=== PATIENT | female | born 1970 | race Caucasian/White ===

== ENCOUNTER → 2017-05-19 09:00 | Outpatient (CLI) | payer MEDICARE, MEDICAID, SELFPAY ==
[2017-05-19 12:51] LABS: Absolute Lymphocyte Count 2.07 X10^3/ul (0.83-4.51); Absolute Neutrophil Count 3.2 X10^3/uL (2.0-7.7); Basophil# 0.01 X10^3/uL; Basophil% 0.2 % (0-1); Eosinophil# 0.19 X10^3/uL; Eosinophils% 3.2 % (0-5); Hematocrit 35.7 % (37-47); Hemoglobin 11.7 g/dl (12.0-15.0); Lymphocyte # 2.07 X10^3/ul (4.0); Lymphocyte % 34.6 % (19-41); Mean Corp Hgb Conc 32.8 g/gl (32-36); Mean Corpuscular Hgb 28.8 pg (27.0-32.0); Mean Corpuscular Volume 87.9 fL (81-99); Mean Platelet Vol. 10.6 fl (6.2-12.0); Monocyte# 0.46 X10^3/uL; Monocyte% 7.7 % (0-10); Neutrophil # 3.24 X10^3/uL (2.7-7.7); Neutrophil % 54.1 % (47-70); Platelet Count 177 K/mm3 (150-450); RBC Distribution Width CV 13.2 % (11.6-14.6); RBC Distribution Width SD 42.4 fl (35.1-43.9); Red Blood Count 4.06 M/mm3 (4.2-5.4)
[2017-05-19 13:00] LABS: POSITIVE COUNT NO; POSITIVE DIFFERENTIAL NO; POSITIVE MORPHOLOGY NO
[2017-05-19 13:13] LABS: Cholesterol 192 mg/dL (200); Glucose 87 mg/dL (74-106); High Density Lipoprotein 53 mg/dL; Iron 34 ug/dL (50-170); T4 Free Direct 0.91 ng/dL (0.76-1.46); Thyroid Stim Hormone (TSH) 3.97 uIU/mL (0.358-3.74); Triglycerides 96 mg/dL; Very Low Density Lipoprotein 19 mg/dL (5-40)
[2017-05-19 13:17] LABS: Vitamin B12 493 pg/mL (211-911); Vitamin D,25 Hydroxy 38.2 ng/mL (29.95-100.01)
== END ==
PROVIDERS: Visit Provider Family Medicine
DX: D64.9 Anemia, unspecified (principal); E55.9 Vitamin D deficiency, unspecified; F41.9 Anxiety disorder, unspecified; Z13.1 Encounter for screening for diabetes mellitus; Z13.220 Encounter for screening for lipoid disorders
CPT/HCPCS: 36415; 80061; 82306; 82607; 82947; 83540; 84439; 84443; 85025

== ENCOUNTER → 2017-08-06 08:49 | Outpatient (CLI) | payer MEDICARE, MEDICAID, SELFPAY ==
[2017-08-06 11:02] LABS: Absolute Lymphocyte Count 2.07 X10^3/ul (0.83-4.51); Absolute Neutrophil Count 3.2 X10^3/uL (2.0-7.7); Basophil# 0.02 X10^3/uL; Basophil% 0.3 % (0-1); Eosinophil# 0.11 X10^3/uL; Eosinophils% 1.9 % (0-5); Hematocrit 38.7 % (37-47); Hemoglobin 13.3 g/dl (12.0-15.0); Lymphocyte # 2.07 X10^3/ul (4.0); Lymphocyte % 35.3 % (19-41); Mean Corp Hgb Conc 34.4 g/gl (32-36); Mean Corpuscular Hgb 29.6 pg (27.0-32.0); Mean Platelet Vol. 10.9 fl (6.2-12.0); Monocyte# 0.51 X10^3/uL; Monocyte% 8.7 % (0-10); Neutrophil # 3.15 X10^3/uL (2.7-7.7); Neutrophil % 53.6 % (47-70); Platelet Count 186 K/mm3 (150-450); RBC Distribution Width CV 12.5 % (11.6-14.6); RBC Distribution Width SD 38.4 fl (35.1-43.9); White Blood Count 5.9 K/mm3 (4.4-11.0)
[2017-08-06 11:08] LABS: POSITIVE COUNT NO; POSITIVE DIFFERENTIAL NO; POSITIVE MORPHOLOGY NO
[2017-08-06 11:15] LABS: Ferritin 25 ng/mL (8-252); Iron 117 ug/dL (50-170)
== END ==
PROVIDERS: Family Provider Family Medicine; PCP Family Medicine; Visit Provider Family Medicine
DX: D64.9 Anemia, unspecified (principal)
CPT/HCPCS: 36415; 82728; 83540; 85025

== ENCOUNTER → 2019-11-24 15:32 | Outpatient (CLI) | payer MEDICARE, MEDICAID, SELFPAY ==
[2018-11-10 12:07] VITALS: BMI 44.6
[2019-11-24 17:10] LABS: Absolute Neutrophil Count 3.7 X10^3/uL (2.0-7.7); Basophil# 0.02 X10^3/uL; Basophil% 0.4 % (0-1); Eosinophil# 0.09 X10^3/uL; Eosinophils% 1.6 % (0-5); Hematocrit 39.3 % (37-47); Hemoglobin 13.1 g/dL (12.0-15.0); Lymphocyte % 26.4 % (19-41); Mean Corp Hgb Conc 33.3 g/dL (32-36); Mean Corpuscular Hgb 30.2 pg (27.0-32.0); Mean Corpuscular Volume 90.6 fL (81-99); Mean Platelet Vol. 10.4 fl (6.2-12.0); Monocyte# 0.33 X10^3/uL; Monocyte% 5.8 % (0-10); NRBC Flagged by Analyzer 0 % (0-5); Neutrophil # 3.72 X10^3/uL (2.7-7.7); Neutrophil % 65.4 % (47-70); Platelet Count 188 K/mm3 (150-450); RBC Distribution Width CV 12.1 % (11.6-14.6); RBC Distribution Width SD 40.2 fl (35.1-43.9); Red Blood Count 4.34 M/mm3 (4.2-5.4); White Blood Count 5.7 K/mm3 (4.4-11.0)
[2019-11-24 17:28] LABS: Anion Gap 7 (5-15); BUN 9 mg/dL (7-18); BUN/Creat Ratio 12.2 RATIO (10-20); Calcium,Total 8.4 mg/dL (8.5-10.1); Chloride 105 mmol/L (98-107); Creatinine, Serum 0.74 mg/dL (0.55-1.02); EST Glomerular Filtration Rate 89 mL/min (>60); Est Glom Filt Rate - Afr Amer 108 mL/min (>60); Ferritin 43 ng/mL (8-252); Glucose 85 mg/dL (74-106); Iron 86 ug/dL (50-170); Potassium 3.8 mmol/L (3.5-5.1); Sodium Level 139 mmol/L (136-145); T4 Free Direct 0.89 ng/dL (0.76-1.46); Thyroid Stim Hormone (TSH) 1.85 uIU/mL (0.358-3.74)
== END ==
PROVIDERS: PCP Family Medicine; Visit Provider Family Medicine
DX: G47.00 Insomnia, unspecified (principal); F32.9 Major depressive disorder, single episode, unspecified; E55.9 Vitamin D deficiency, unspecified; D64.9 Anemia, unspecified; R53.83 Other fatigue
CPT/HCPCS: 36415; 80048; 82306; 82728; 83540; 84439; 84443; 85025

== ENCOUNTER → 2022-07-08 | Outpatient (CLI) | payer MEDICARE, MEDICAID, SELFPAY ==
[2022-07-08 12:20] LABS: Absolute Neutrophil Count 3.9 X10^3/uL (2.0-7.7); Basophil# 0.03 X10^3/uL; Basophil% 0.5 % (0-1); Eosinophil# 0.13 X10^3/uL; Hematocrit 43.3 % (37-47); Hemoglobin 14.4 g/dL (12.0-15.0); Mean Corp Hgb Conc 33.3 g/dL (32-36); Mean Corpuscular Hgb 29.9 pg (27.0-32.0); Mean Corpuscular Volume 89.8 fL (81-99); Mean Platelet Vol. 10.6 fl (6.2-12.0); Monocyte% 6.2 % (0-10); NRBC Flagged by Analyzer 0 % (0-5); Neutrophil # 3.88 X10^3/uL (2.7-7.7); Platelet Count 220 K/mm3 (150-450); RBC Distribution Width CV 12.6 % (11.6-14.6); Red Blood Count 4.82 M/mm3 (4.2-5.4); White Blood Count 6.5 K/mm3 (4.4-11.0)
[2022-07-08 12:52] LABS: Vitamin D,25 Hydroxy 32.2 ng/mL
[2022-07-08 12:56] LABS: ALB/GLOB Ratio 1.1 RATIO (0.9-2.4); AST(SGOT) 8 U/L (15-37); Alanine Aminotransfer ALT/SGPT 15 U/L (13-56); Albumin, Serum 3.8 g/dL (3.2-5.0); Alkaline Phosphatase 79 U/L (45-117); Anion Gap 7 (5-15); BUN 10 mg/dL (7-18); BUN/Creat Ratio 12.1 RATIO (10-20); Calcium,Total 8.8 mg/dL (8.5-10.1); Chloride 107 mmol/L (98-107); Cholesterol 231 mg/dL (200); Creatinine, Serum 0.82 mg/dL (0.55-1.02); EST Glomerular Filtration Rate 78 mL/min (>60); Est Glom Filt Rate - Afr Amer 94 mL/min (>60); Ferritin 26 ng/mL (8-252); Globulin 3.4 g/dL (2.2-4.2); Glucose 92 mg/dL (74-106); High Density Lipoprotein 43 mg/dL; Iron 48 ug/dL (50-170); Potassium 3.6 mmol/L (3.5-5.1); Protein, Total 7.2 g/dL (6.4-8.2); Sodium Level 140 mmol/L (136-145); Thyroid Stim Hormone (TSH) 3.25 uIU/mL (0.358-3.74); Triglycerides 156 mg/dL; Very Low Density Lipoprotein 31 mg/dL (5-40)
== END | disposition home or self-care (01) ==
LOC: BFHLAB 10:53
PROVIDERS: PCP Nurse Practitioner Family; Referring Provider Nurse Practitioner Family; Visit Provider Nurse Practitioner Family
DX: Z00.00 Encounter for general adult medical examination without abnormal findings (principal); E66.01 Morbid (severe) obesity due to excess calories; E55.9 Vitamin D deficiency, unspecified; D64.9 Anemia, unspecified
CPT/HCPCS: 36415; 80053; 80061; 82306; 82728; 83540; 84439; 84443; 85025

== ENCOUNTER → 2022-07-14 | Outpatient (CLI) | payer MEDICARE, MEDICAID, SELFPAY ==
--- NOTE | 2022-07-14 12:27 | BI_ITS ---
MAMMOGRAPHY - BILATERAL SCREENING REASON FOR EXAM: Female, 51 years old. Routine annual screening examination. PERTINENT HISTORY: Non-contributory. TECHNIQUE: Digital bilateral breast ajith (3D mammographic acquisition) in the CC and MLO projections. 2-D mediolateral oblique (MLO) and craniocaudad (CC) views of both breasts were obtained. CAD: Full Field Digital Mammography with Computer Added Detection was performed. COMPARISON: Comparison is made with prior outside examination dated November 21, 2018 and August 08, 2015. FINDINGS: Breast Composition: There are scattered areas of fibroglandular density. There are no dominant masses or suspicious calcifications. Stable 1 cm well-defined nodule in the inferior medial aspect of the left breast. This was demonstrated to be a small cyst on prior sonogram dated June 16, 2011. No other significant abnormalities are identified. There has been no significant change since the prior study. BI/SCRN MAMM (CAD)W/AJITH BILAT IMPRESSION: Stable bilateral screening mammogram. Yearly follow-up mammogram recommended. (A) ASSESSMENT CATEGORY: BIRADS Category 2: Benign. A letter regarding these results will be sent to the patient by the facility within 30 days. Approximately 10% of breast cancers are not detected by mammography. A normal mammogram should not delay biopsy of a clinically suspicious abnormality. [id number] Electronically Signed: Quentin Santos MD at 13:44 EDT ,
== END | disposition home or self-care (01) ==
LOC: OPBI 12:25
PROVIDERS: PCP Nurse Practitioner Family; Referring Provider Nurse Practitioner Family; Visit Provider Nurse Practitioner Family
DX: Z12.31 Encounter for screening mammogram for malignant neoplasm of breast (principal)
CPT/HCPCS: 77063; 77067

== ENCOUNTER → 2023-07-19 | Outpatient (CLI) | payer OTHER, SELFPAY ==
[2023-07-19 17:52] LABS: Basophil# 0.02 X10^3/uL; Basophil% 0.4 % (0-1); Eosinophils% 2.1 % (0-5); Hematocrit 41.1 % (37-47); Hemoglobin 13.4 g/dL (12.0-15.0); Mean Corp Hgb Conc 32.6 g/dL (32-36); Mean Corpuscular Hgb 29.6 pg (27.0-32.0); Mean Corpuscular Volume 90.7 fL (81-99); Mean Platelet Vol. 11.3 fl (6.2-12.0); Monocyte% 6.2 % (0-10); NRBC Flagged by Analyzer 0 % (0-5); Neutrophil # 2.99 X10^3/uL (2.7-7.7); Neutrophil % 62.1 % (47-70); Platelet Count 197 K/mm3 (150-450); RBC Distribution Width CV 12.8 % (11.6-14.6); RBC Distribution Width SD 41.6 fl (35.1-43.9); Red Blood Count 4.53 M/mm3 (4.2-5.4); White Blood Count 4.8 K/mm3 (4.4-11.0)
[2023-07-19 18:29] LABS: ALB/GLOB Ratio 1.3 RATIO (0.9-2.4); AST(SGOT) 13 U/L (15-37); Alanine Aminotransfer ALT/SGPT 23 U/L (13-56); Albumin, Serum 3.9 g/dL (3.2-5.0); Alkaline Phosphatase 64 U/L (45-117); Anion Gap 8 (5-15); BUN 12 mg/dL (7-18); BUN/Creat Ratio 14.1 RATIO (10-20); Calcium,Total 8.8 mg/dL (8.5-10.1); Chloride 108 mmol/L (98-107); Cholesterol 189 mg/dL (200); Creatinine, Serum 0.85 mg/dL (0.55-1.02); EST Glomerular Filtration Rate 75 mL/min (>60); Est Glom Filt Rate - Afr Amer 90 mL/min (>60); Ferritin 87 ng/mL (8-252); Globulin 3.1 g/dL (2.2-4.2); Glucose 79 mg/dL (74-106); High Density Lipoprotein 46 mg/dL; Iron 65 ug/dL (50-170); Sodium Level 141 mmol/L (136-145); Triglycerides 78 mg/dL; Very Low Density Lipoprotein 16 mg/dL (5-40)
[2023-07-19 18:31] LABS: Hemoglobin A1c 4.5 % (3.8-5.6)
[2023-07-19 21:51] LABS: Vitamin B12 273 pg/mL (211-911); Vitamin D,25 Hydroxy 87.4 ng/mL
== END | disposition home or self-care (01) ==
LOC: BFHLAB 14:02
PROVIDERS: PCP Nurse Practitioner Family; Referring Provider Nurse Practitioner Family; Visit Provider Nurse Practitioner Family
DX: Z00.01 Encounter for general adult medical examination with abnormal findings (principal); I10 Essential (primary) hypertension; E55.9 Vitamin D deficiency, unspecified; D64.9 Anemia, unspecified; E53.8 Deficiency of other specified B group vitamins
CPT/HCPCS: 36415; 80053; 80061; 82306; 82607; 82728; 83036; 83540; 85025

== ENCOUNTER 2023-08-19 10:00 | Outpatient (RCR) | payer OTHER, SELFPAY | END 2023-09-05 23:59 | LOC: NS 10:00 | PROVIDERS: PCP Nurse Practitioner Family; Referring Provider Nurse Practitioner Family; Visit Provider Nurse Practitioner Family | DX: Z71.3 Dietary counseling and surveillance (principal); I10 Essential (primary) hypertension; E66.01 Morbid (severe) obesity due to excess calories; Z68.34 Body mass index [BMI] 34.0-34.9, adult | CPT/HCPCS: 97802 ==

== ENCOUNTER 2023-08-23 07:59 | Day surgery (SDC) | payer OTHER, SELFPAY ==
[2023-08-23] VITALS (7 sets, daily range): BP systolic 120–146; BP diastolic 71–91; PULSE 57–74; RESP 16; TEMP 36.2–36.7; O2SAT 99–100; BMI 34.1
--- NOTE | 2023-08-23 08:22 | PRE.ANES_ITS ---
ASA Classification* ASA Classification ASA Classification: 2 Assessment & Plan Anesthesia* Anesthesia Assessment Anesthesia Assessment: Discussed sedation and/or anesthesia options, risks, benefits, and alternatives with patient/parents/legal guardian/POA. Questions invited. The patient/parents/legal guardian/POA seems to understand and agrees to proceed with anesthesia plan. Reviewed the physical assessment, medical history, allergy history and patient home medications list prior to surgery/procedure/anesthetic and documented any changes. Performed airway and anesthesia risk assessments. 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 When Was Last Pacemaker Check QUESTION #4 FULL TEXT: You/Your Family Experience fever (hyperthermia) with Anesthesia Last Oral Intake Last Oral intake: Last Oral Intake NPO since Meds taken in AM with sips of water? Meds patient instructed to take am of surgery PONV PONV - bench press operator: PONV - bench press operator Female Yes 08/17/23 12:26 HX of Motion Sickness No 08/17/23 12:26 HX of N/V After Surgery No 08/17/23 12:26 Non-Smoker Yes 08/17/23 12:26 Duration of Surgery greater No 08/17/23 12:26 than 60 minutes Number of Risk Factors 2 08/17/23 12:26 PONV Score Moderate Risk 08/17/23 12:26 Height & Weight Height & Weight: Anesthesia: Height & Weight Height 5 ft 5 in 08/19/23 10:09 Respiratory Assessment Respiratory Assessment - bench press operator: Respiratory Tract Infection Hx - bench press operator Hx Respiratory Tract Infection No 08/17/23 12:26 STOP Sleep Apnea STOP Sleep Apnea - bench press operator: STOP Sleep Apnea - bench press operator Hx Hypertension Yes 08/17/23 12:26 Hx Sleep Apnea No 08/17/23 12:26 CPAP BIPAP Do you snore loudly (louder No 08/17/23 12:26 than talking or can be heard Do you often feel tired/ No 08/17/23 12:26 fatigued/ sleepy during daytime? Has anyone observed you stop No 08/17/23 12:26 breathing during sleep? STOP Results Negative 08/17/23 12:26 QUESTION #5 FULL TEXT : Do you snore loudly (louder than talking or can be h eard through closed doors)? 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 Specify any problems Hx of Preganancy in last 3 No 08/17/23 12:26 Months Nurse Filling Out Transfusion [email or web address] 08/17/23 12:26 & Questions: Date: 08/17/23 08/17/23 12:26 Time: 12:27 08/17/23 12:26 Patient unable to answer at this time (ie. confused, unrespo /Reproduction History /Reproductive History - bench press operator: /Reproductive Hx- bench press operator Hx Now Gestational Age (in weeks): EDC: Hx Hx Para Hx Section SAB Active Medications Active Medications: Current Medications Generic Name Dose Route Start Last Admin Trade Name Freq PRN Reason Stop Dose Admin Lactated Ringer's 1,000 mls @ 15 mls/hr 08/23/23 08:30 IV .Q48H [facility] Anesthesia Focused Assessment* Airway Assessment Mouth opens: >3 cm Mallampati Score: II Focused Labs Anesthesia Preop lab: CBC WBC 4.8 K/mm3 (4.4-11.0) 07/19/23 14:02 RBC 4.53 M/mm3 (4.2-5.4) 07/19/23 14:02 Hgb 13.4 g/dL (12.0-15.0) 07/19/23 14:02 Hct 41.1 % (37-47) 07/19/23 14:02 Plt Count 197 K/mm3 (150-450) 07/19/23 14:02 CHEMISTRY Potassium 4.0 mmol/L (3.5-5.1) 07/19/23 14:02 Sodium 141 mmol/L (136-145) 07/19/23 14:02 Magnesium 1.8 mg/dL (1.8-2.4) 10/05/13 11:32 Phosphorus 3.0 mg/dL (2.5-4.9) 10/05/13 11:32 BUN 12 mg/dL (7-18) 07/19/23 14:02 Creatinine 0.85 mg/dL (0.55-1.02) 07/19/23 14:02 Glucose 79 mg/dL (74-106) 07/19/23 14:02 TSH 3.25 uIU/mL (0.358-3.74) 07/08/22 10:54 COAG Review of Systems (Anesthesia) ROS Narrative System reviewed and no additional complaints, except as documented. [facility] Medical History (Updated 08/17/23 @ 12:23 by Archie Ascencio) Depression Anxiety Contact dermatitis due to plant h/o ulnar nerve release Fibromyalgia Anemia Home Medications ?Medication ?Instructions ?Recorded ?Last Taken ?Type cholecalciferol (vitamin D3) 50 2,000 unit PO DAILY 11/10/18 Unknown History mcg (2,000 unit) capsule tizanidine 2 mg capsule (Zanaflex) 2 mg PO Q8H PRN muscle spasticity 11/10/18 Unknown History tramadol 50 mg tablet 50 mg PO DAILY 11/10/18 Unknown History zolpidem 5 mg tablet (Ambien) 10 mg PO QHS 11/10/18 Unknown History rizoayy-dcdcnpocdmoet-guthwyhz 250 1 tab PO PRN 04/03/20 Unknown History mg-250 mg-65 mg tablet (Excedrin Migraine) diclofenac sodium 75 mg 50 mg PO BID PRN pain 04/03/20 Unknown History tablet,delayed release ibuprofen 200 mg capsule 200 mg PO Q6H PRN pain 04/03/20 Unknown History diphenhydramine HCl 25 mg capsule 25 mg PO QHS PRN allergy symptoms 09/22/22 Unknown History (Benadryl) lisinopril 10 mg tablet 10 mg PO QHS 09/22/22 Unknown History bupropion HCl 150 mg 24 hr tablet, 300 mg PO DAILY 08/17/23 Unknown History extended release ferrous sulfate 325 mg (65 mg 325 mg PO DAILY 08/17/23 Unknown History iron) tablet (Feosol) Allergy/AdvReac Type Severity Reaction Status Date / Time No Known Allergies Allergy Verified 08/17/23 12:12 Family History (Updated 04/03/20 @ 11:27 by [facility]) Father Diabetes Surgical History (Updated 04/03/20 @ 11:27 by [facility]) H/O: hysterectomy History of gastric bypass History of hysterectomy History of carpal tunnel repair Hx of tonsillectomy History of Social History (Updated 04/03/20 @ 15:[address] Iban Ricks, DO) household members: spouse and children housing: house Smoking Status: Never smoker alcohol intake: never do you feel safe at home: Yes
[2023-08-23] MEDS: Lactated Ringers 1,000 ML 15 ML IV (08:31)
--- NOTE | 2023-08-23 09:42 | RAD_ITS ---
PROCEDURE: Right cervical facet injection. DATE OF EXAMINATION: August 23, 2023. INDICATION: Female, 52 years old. Cervical neck pain. FLUOROSCOPY TIME (if supplied): (11.1 seconds) minutes/seconds. 1.51 mGy. 4 images were submitted. RAD/Cerv Spine 4 or 5 Views IMPRESSION: Intraoperative imaging provided for right cervical facet joint injection. Electronically Signed: Quentin Santos MD at 8:03 EDT ,
[2023-08-23] MEDS: MethylPREDNISolone Acetate 80 MG/ML Vial (09:48)
--- NOTE | 2023-08-23 09:53 | PCM.POST.ANE ---
Anesthesia: Postop Eval I Current Vital Signs Temperature: 97.8 F Pulse Rate: 74 Blood Pressure: 120/71 Respiratory Rate: 16 Pulse Ox: 99 Oxygen Delivery Method: Room Air Assessment Airway patent: Yes Spontaneous unlabored respirations: Yes Mental status: Awake and Calm nausea: No Vomiting: No Anesthesia Complication: No Fluid Hydration Crystalloid volume administer (ml): 200 Total IV fluid infused: 200 Progress Note Anesthesia document: Postop Eval 1 completed: Yes
--- NOTE | 2023-08-23 10:55 | OP.PCM_ITS ---
Report of Operation Date of Procedure: 08/23/23 Description of Surgical Findings:: PREOPERATIVE DIAGNOSIS: Cervical spondylosis, cervical degenerative disc disease, cervical facet arthropathy POSTOPERATIVE DIAGNOSIS:Cervical spondylosis, cervical degenerative disc disease, cervical facet arthropathy PROCEDURE PERFORMED: Right sided cervical facet steroid injection, C4, C5, C6, and C7. ANESTHESIA: MAC. BLOOD LOSS: Minimal. COMPLICATIONS: None. DESCRIPTION OF PROCEDURE: History and physical of today was reviewed. Risks and benefits of the procedure were explained. The patient understood and agreed to proceed. Informed consent was obtained. IV inserted per routine protocol. The patient was taken to the operating room and placed in the prone position with a pillow positioned underneath the chest. The neck area was prepped and draped in a sterile fashion using iodine x3. Under fluoroscopy guidance on an AP view, the C4 through C7 vertebral bodies were visualized at approximately 10- degree angle, starting on the right C4, ending on the right C7, passing through the C5 and C6. Using a 25-gauge 3-1/2-inch spinal needle, the needle was advanced via the skin. The tip of the needle was maneuvered and directed towards the epiphyseal junction of each corresponding vertebra. Once the tip of the needle was at the vicinity of the medial branch, the needle was pulled approximately 2 mm off the bone. After negative aspiration of blood or CSF and confirmation on AP, oblique as well as lateral view, a total of 4 mL of preservative-free 0.25% Marcaine with 80 mg of Depo-Medrol was injected in divided doses between those four levels. The needles were then removed intact. The patient experienced no sign or symptoms of intrathecal or intravascular injection. The patient experienced no paresthesia. The procedure was completed without any apparent difficulty or any complications. The patient appeared to tolerate it well. ASSESSMENT AND PLAN: This is a 52-year-old female with cervical spondylosis, cervical degenerative disc disease, cervical facet arthropathy status post right-sided cervical facet steroid injection C4-C7, patient will continue her current medications, patient will follow approximately 2 weeks for reevaluation.
--- NOTE | 2023-08-23 12:37 | POSTOPAN2_ITS ---
Anesthesia Postop Eval I Sum Postop Eval Completion status Anesthesia document: Postop Eval 1 completed: Yes Anesthesia Postop Eval I Summary Anesthesia Postop Eval I Summary: Anesthesia Postop Eval I: Assessment Summary Airway patent Yes 08/23/23 09:58 ELECTRIC ARC FURNACE OPERATOR.KYLELOU Spontaneous unlabored Yes 08/23/23 09:58 ELECTRIC ARC FURNACE OPERATOR.PAPITOU respirations Mental status Awake,Calm 08/23/23 09:58 ELECTRIC ARC FURNACE OPERATOR.KYLELOU nausea No 08/23/23 09:58 ELECTRIC ARC FURNACE OPERATOR.KYLELOU Vomiting No 08/23/23 09:58 ELECTRIC ARC FURNACE OPERATOR.KYLELOU Anesthesia Postop Eval I: Fluid Summary Crystalloid volume administer 200 08/23/23 09:58 ELECTRIC ARC FURNACE OPERATOR.KYLELOU (ml) Colloids volume administered ( ml) Blood Product volume administered (ml) Total IV fluid infused 200 08/23/23 09:58 ELECTRIC ARC FURNACE OPERATOR.KYLELOU Anesthesia Postop Eval I: Summary Notes Anesthesia Complication No 08/23/23 09:58 ELECTRIC ARC FURNACE OPERATOR.PRITI Anesthesia Complication Comment: Post-operative progress note Anesthesia: Postop Eval II Evaluation Mental status: Awake Pain Level: 0 nausea: No Vomiting: No Complications Anesthesia Complication: No
--- NOTE | 2023-08-23 12:37 | PCM.POSTANE2 ---
Anesthesia Postop Eval I Sum Postop Eval Completion status Anesthesia document: Postop Eval 1 completed: Yes Anesthesia Postop Eval I Summary Anesthesia Postop Eval I Summary: Anesthesia Postop Eval I: Assessment Summary Airway patent Yes 08/23/23 09:58 SALES OPERATIONS LEAD.KYLELOU Spontaneous unlabored Yes 08/23/23 09:58 SALES OPERATIONS LEAD.PAPITOU respirations Mental status Awake,Calm 08/23/23 09:58 SALES OPERATIONS LEAD.KYLELOU nausea No 08/23/23 09:58 SALES OPERATIONS LEAD.KYLELOU Vomiting No 08/23/23 09:58 SALES OPERATIONS LEAD.KYLELOU Anesthesia Postop Eval I: Fluid Summary Crystalloid volume administer 200 08/23/23 09:58 SALES OPERATIONS LEAD.KYLELOU (ml) Colloids volume administered ( ml) Blood Product volume administered (ml) Total IV fluid infused 200 08/23/23 09:58 SALES OPERATIONS LEAD.KYLELOU Anesthesia Postop Eval I: Summary Notes Anesthesia Complication No 08/23/23 09:58 SALES OPERATIONS LEAD.PRITI Anesthesia Complication Comment: Post-operative progress note Anesthesia: Postop Eval II Evaluation Mental status: Awake Pain Level: 0 nausea: No Vomiting: No Complications Anesthesia Complication: No
== END 2023-08-23 10:37 | disposition home or self-care (01) ==
LOC: SDC 07:59 → AC 08:00
PROVIDERS: PCP Nurse Practitioner Family; Referring Provider Anesthesiology Pain Medicine; Visit Provider Anesthesiology Pain Medicine
PROC: 3E0T3BZ Introduction of Anesthetic Agent into Peripheral Nerves and Plexi, Percutaneous Approach (ICD-10-PCS; CPT 64490; principal; 2023-08-23 09:05)
DX: M47.812 Spondylosis without myelopathy or radiculopathy, cervical region (principal); M50.30 Other cervical disc degeneration, unspecified cervical region; M46.92 Unspecified inflammatory spondylopathy, cervical region; Z79.899 Other long term (current) drug therapy; Z79.82 Long term (current) use of aspirin
CPT/HCPCS: 64490; 64492; 64491; 01992; 72050; J7120

== ENCOUNTER → 2023-08-24 | Outpatient (CLI) | payer OTHER, SELFPAY ==
--- NOTE | 2023-08-24 15:50 | BI_ITS ---
MAMMOGRAPHY - BILATERAL SCREENING REASON FOR EXAM: Female, 52 years old. Routine annual screening examination. PERTINENT HISTORY: Non-contributory. TECHNIQUE: Digital bilateral breast ajith (3D mammographic acquisition) in the CC and MLO projections. 2-D mediolateral oblique (MLO) and craniocaudad (CC) views of both breasts were obtained. CAD: Full Field Digital Mammography with Computer Added Detection was performed. COMPARISON: Comparison is made with prior study July 14, 2022 and August 08, 2015. FINDINGS: Breast Composition: There are scattered areas of fibroglandular density. There are no dominant masses or suspicious calcifications. Stable 1 cm well-defined nodule in the inferior medial aspect of the left breast. This was demonstrated to be a small cyst on prior sonogram. No other significant abnormalities are identified. There has been no significant change since the prior study. BI/SCRN MAMM (CAD)W/AJITH BILAT IMPRESSION: Stable bilateral screening mammogram. Yearly follow-up mammogram recommended. (A) ASSESSMENT CATEGORY: BIRADS Category 2: Benign. A letter regarding these results will be sent to the patient by the facility within 30 days. Approximately 10% of breast cancers are not detected by mammography. A normal mammogram should not delay biopsy of a clinically suspicious abnormality. [id number] Electronically Signed: Quentin Santos MD at 10:52 EDT ,
--- NOTE | 2023-08-24 15:57 | BD_ITS ---
STUDY: DUAL ENERGY X-RAY ABSORPTIOMETRY / DXA REASON FOR EXAM: Female, 52 years old. V76.12ScreeningBONE DENSITY REASON FOR EXAM TECHNIQUE: Bone Mineral Density (BMD) measurements of lumbar spine and bilateral hips were obtained. COMPARISON: Comparison is made with prior study dated August 14, 2008. FINDINGS: Lumbar Spine (L1-L4): g/cm2 (1.010) / T-score (-0.3) / Z-score (0.5) Findings are suggestive of normal bone density with a low fracture risk. Left Femur Total: g/cm2 (1.010) / T-score (0.6) / Z-score (1.1) Left Femoral Neck: g/cm2 (0.764) / T-score (-0.8) / Z-score (0.1) Right Femur Total: g/cm2 (1.038) / T-score (0.8) / Z-score (1.3) Right Femoral Neck: g/cm2 (0.840) / T-score (-0.1) / Z-score (0.8) The T-Scores on the most recent prior examination were: Lumbar Spine (L1-L4): There has been worsening of bone density since the previous examination. Left Femur Total: which represents a worsening of 5.2%. Right Femur Total: which represents a worsening of 0.7%. BD/Dexa Bone Density Study IMPRESSION: The patient is considered normal as outlined below according to World Trip Organization (WHO) criteria with a low fracture risk. There has been worsening of bone density since the previous examination. Reference Information: The T-score is the number of standard deviations above or below the standard which is normal for young adults at their peak bone mineral density. The World Health Organization (WHO) interprets the T-scores as follows: Above -1 Normal bone density Between -1 and -2.5 Osteopenia Equal to / or below -2.5 Osteoporosis As a practical clinical guideline, osteopenia may be graded as follows: Mild -1 through -1.5 Moderate -1.6 through -2.0 Severe -2.1 through -2.4 The Z-score is the number of standard deviations above or below age-matched controls. A Z-score of less than -1.5 would be considered abnormal. References: 1. NIH Osteoporosis and Related Bone Diseases www osteo.org 2. International Society for Clinical Densitometry www iscd.org 3. National Osteoporosis Foundation www nof.org Electronically Signed: Quentin Santos MD at 14:19 EDT ,
== END | disposition home or self-care (01) ==
LOC: OPBD 15:48
PROVIDERS: PCP Nurse Practitioner Family; Referring Provider Nurse Practitioner Family; Visit Provider Nurse Practitioner Family
DX: Z12.31 Encounter for screening mammogram for malignant neoplasm of breast (principal); Z13.820 Encounter for screening for osteoporosis
CPT/HCPCS: 77063; 77067; 77080

== ENCOUNTER 2023-09-14 13:31 | Outpatient (RCR) | payer OTHER, SELFPAY | END 2023-10-06 23:59 | LOC: NS 13:31 | PROVIDERS: PCP Nurse Practitioner Family; Referring Provider Nurse Practitioner Family; Visit Provider Nurse Practitioner Family | DX: Z71.3 Dietary counseling and surveillance (principal); I10 Essential (primary) hypertension; E66.01 Morbid (severe) obesity due to excess calories; Z68.33 Body mass index [BMI] 33.0-33.9, adult | CPT/HCPCS: 97803 ==

== ENCOUNTER 2024-02-21 07:42 | Day surgery (SDC) | payer OTHER, SELFPAY ==
[2024-02-21] VITALS (7 sets, daily range): BP systolic 120–139; BP diastolic 69–103; PULSE 59–73; RESP 16–18; TEMP 36.3–36.8; O2SAT 100; BMI 33.7
--- NOTE | 2024-02-21 08:20 | RAD_ITS ---
EXAM: XR CERVICAL SPINE, 4 OR 5 VIEWS CLINICAL INDICATION: BLOCK, CERVICAL FACET, LEFT TECHNIQUE: Frontal, lateral and bilateral oblique views of the cervical spine. COMPARISON: No relevant prior studies available. FINDINGS: VERTEBRAE: Image obtained intraoperatively. Images show markedly along the left cervical spine for facet block. DISC SPACES: Unremarkable. Disc spaces are maintained. SOFT TISSUES: See above. LUNG APICES: Clear. RAD/Cerv Spine 2 or 3 Views IMPRESSION: Intraoperative localization for cervical facet block. Electronically Signed: Juan C Sellers MD at 0:01 EST ,
--- NOTE | 2024-02-21 09:46 | PRE.ANES_ITS ---
ASA Classification* ASA Classification ASA Classification: 2 Assessment & Plan Anesthesia* Anesthesia Assessment Anesthesia Assessment: Discussed sedation and/or anesthesia options, risks, benefits, and alternatives with patient/parents/legal guardian/POA. Questions invited. The patient/parents/legal guardian/POA seems to understand and agrees to proceed with anesthesia plan. Reviewed the physical assessment, medical history, allergy history and patient home medications list prior to surgery/procedure/anesthetic and documented any changes. Performed airway and anesthesia risk assessments. Anesthesia Type Anesthesia Type: MAC Anesthesia Focused Assessment* Temperature: 98.2 F Pulse Rate: 73 Blood Pressure: 139/83 Respiratory Rate: 18 Pulse Ox: 100 Airway Assessment Mouth opens: >3 cm Mallampati Score: II Focused Labs Anesthesia Preop lab: CBC WBC 4.8 K/mm3 (4.4-11.0) 07/19/23 14:02 RBC 4.53 M/mm3 (4.2-5.4) 07/19/23 14:02 Hgb 13.4 g/dL (12.0-15.0) 07/19/23 14:02 Hct 41.1 % (37-47) 07/19/23 14:02 Plt Count 197 K/mm3 (150-450) 07/19/23 14:02 CHEMISTRY Potassium 4.0 mmol/L (3.5-5.1) 07/19/23 14:02 Sodium 141 mmol/L (136-145) 07/19/23 14:02 Magnesium 1.8 mg/dL (1.8-2.4) 10/05/13 11:32 Phosphorus 3.0 mg/dL (2.5-4.9) 10/05/13 11:32 BUN 12 mg/dL (7-18) 07/19/23 14:02 Creatinine 0.85 mg/dL (0.55-1.02) 07/19/23 14:02 Glucose 79 mg/dL (74-106) 07/19/23 14:02 TSH 3.25 uIU/mL (0.358-3.74) 07/08/22 10:54 COAG Pre-Assessment Diagnosis/Proposed Procedure Planned Operative Procedure(s): Cervical facet block Anesthesia History 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 When Was Last Pacemaker Check QUESTION #4 FULL TEXT: You/Your Family Experience fever (hyperthermia) with Anesthesia Last Oral Intake Last Oral intake: Last Oral Intake NPO since 12:15 02/21/24 08:09 Meds taken in AM with sips of water? Meds patient instructed to take am of surgery PONV PONV - field superintendent: PONV - field superintendent Female HX of Motion Sickness HX of N/V After Surgery Non-Smoker Duration of Surgery greater than 60 minutes Number of Risk Factors PONV Score Height & Weight Height & Weight: Anesthesia: Height & Weight Height 5 ft 5 in 02/21/24 08:09 Weight: 92 kg 02/21/24 08:09 Body Mass Index (BMI) 33.7 02/21/24 08:09 Respiratory Assessment Respiratory Assessment - field superintendent: Respiratory Tract Infection Hx - field superintendent Hx Respiratory Tract Infection No 08/17/23 12:26 STOP Sleep Apnea STOP Sleep Apnea - field superintendent: STOP Sleep Apnea - field superintendent Hx Hypertension Yes 08/17/23 12:26 Hx Sleep Apnea No 08/23/23 10:10 CPAP BIPAP Do you snore loudly (louder than talking or can be heard Do you often feel tired/ fatigued/ sleepy during daytime? Has anyone observed you stop breathing during sleep? STOP Results QUESTION #5 FULL TEXT : Do you snore loudly (louder than talking or can be heard through closed doors)? 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 Specify any problems Hx of Preganancy in last 3 Months Nurse Filling Out Transfusion & Questions: Date: Time: Patient unable to answer at this time (ie. confused, unrespo /Reproduction History /Reproductive History - field superintendent: /Reproductive Hx- field superintendent Hx Now Gestational Age (in weeks): EDC: Hx Hx Para Hx Section SAB [employer] [facility] Medical History HTN (hypertension) Depression Anxiety Contact dermatitis due to plant h/o ulnar nerve release Fibromyalgia Anemia Home Medications ?Medication ?Instructions ?Recorded ?Last Taken ?Type cholecalciferol (vitamin D3) 50 2,000 unit PO DAILY 11/10/18 02/20/24 History mcg (2,000 unit) capsule tizanidine 2 mg capsule (Zanaflex) 2 mg PO Q8H PRN muscle spasticity 11/10/18 02/20/24 History tramadol 50 mg tablet 50 mg PO DAILY 11/10/18 02/20/24 History zolpidem 5 mg tablet (Ambien) 10 mg PO QHS 11/10/18 02/20/24 History xqxbcrv-ewroxdyomkpnm-yecivmwy 250 1 tab PO PRN 04/03/20 08/22/23 History mg-250 mg-65 mg tablet (Excedrin Migraine) ibuprofen 200 mg capsule 200 mg PO Q6H PRN pain 04/03/20 08/22/23 History diphenhydramine HCl 25 mg capsule 25 mg PO QHS PRN allergy symptoms 09/22/22 08/22/23 History (Benadryl) lisinopril 10 mg tablet 10 mg PO QHS 09/22/22 02/20/24 History bupropion HCl 150 mg 24 hr tablet, 300 mg PO DAILY 08/17/23 02/20/24 History extended release ferrous sulfate 325 mg (65 mg 325 mg PO DAILY 08/17/23 02/20/24 History iron) tablet (Feosol) omega 5-hai-chh-fish oil 1,200 mg 1 cap PO DAILY 02/21/24 02/20/24 History (144 mg-216 mg) capsule (Fish Oil) Allergy/AdvReac Type Severity Reaction Status Date / Time No Known Allergies Allergy Verified 02/21/24 08:05 Family History Father Diabetes Grandmother Colon cancer Paternal, In her 60's Surgical History H/O: hysterectomy History of gastric bypass History of hysterectomy History of carpal tunnel repair Hx of tonsillectomy History of Social History household members: spouse and children housing: house current occupational status: employed Smoking Status: Never smoker alcohol intake: never do you feel safe at home: Yes Review of Systems (Anesthesia) ROS Narrative System reviewed and no additional complaints, except as documented.
[2024-02-21] MEDS: MethylPREDNISolone Acetate 80 MG/ML Vial (11:24)
[2024-02-21] MEDS: Bupivacaine 0.25% 30 ML Vial (11:25)
--- NOTE | 2024-02-21 11:28 | PCM.OPRPT ---
Operative Report (Standard) Operative Information Date of Procedure: 02/21/24 Pre-Operative Diagnosis: 1 Post-Operative Diagnosis: 1 Surgery/Procedure Performed: 1 mattress stripper: No Type of Anesthesia: MAC and Topical Anesth RN Documented Start/Stop Times: Operation Date: 02/21/24 09:20 Case Time Into Pre-Op 02/21/24 07:55 Into Room 02/21/24 11:11 Anesthesia Start 02/21/24 11:12 Procedure Start 02/21/24 11:24 Procedure End 02/21/24 11:25 Procedure Start Time: Procedure Stop Time: Select all DRAINS/GRAFTS/IMPLANTS that apply: None Estimated Blood Loss: 1 Specimen collected: No Description of surgery: PREOPERATIVE DIAGNOSIS: Cervical spondylosis, cervical degenerative disc disease, cervical facet arthropathy POSTOPERATIVE DIAGNOSIS:Cervical spondylosis, cervical degenerative disc disease, cervical facet arthropathy PROCEDURE PERFORMED: left sided cervical facet steroid injection, C4, C5, C6, and C7. ANESTHESIA: MAC. BLOOD LOSS: Minimal. COMPLICATIONS: None. DESCRIPTION OF PROCEDURE: History and physical of today was reviewed. Risks and benefits of the procedure were explained. The patient understood and agreed to proceed. Informed consent was obtained. IV inserted per routine protocol. The patient was taken to the operating room and placed in the prone position with a pillow positioned underneath the chest. The neck area was prepped and draped in a sterile fashion using iodine x3. Under fluoroscopy guidance on an AP view, the C4 through C7 vertebral bodies were visualized at approximately 10-degree angle, starting on the left C4, ending on the left C7, passing through the C5 and C6. Using a 25-gauge 3-1/2-inch spinal needle, the needle was advanced via the skin. The tip of the needle was maneuvered and directed towards the epiphyseal junction of each corresponding vertebra. Once the tip of the needle was at the vicinity of the medial branch, the needle was pulled approximately 2 mm off the bone. After negative aspiration of blood or CSF and confirmation on AP, oblique as well as lateral view, a total of 4 mL of preservative-free 0.25% Marcaine with 80 mg of Depo-Medrol was injected in divided doses between those four levels. The needles were then removed intact. The patient experienced no sign or symptoms of intrathecal or intravascular injection. The patient experienced no paresthesia. The procedure was completed without any apparent difficulty or any complications. The patient appeared to tolerate it well. ASSESSMENT AND PLAN: This is a 53-year-old female with cervical spondylosis, cervical degenerative disc disease, cervical facet arthropathy status post left-sided cervical facet steroid injection C4-C7, patient will continue her current medications, patient will follow approximately 2 weeks for reevaluation. Surgical Findings: 1 Complications Complications: No Admit VTE Documentation VTE Present on Admission: No VTE Pharm Prophylaxis ordered?: No
--- NOTE | 2024-02-21 11:37 | PCM.POST.ANE ---
Anesthesia: Postop Eval I Current Vital Signs Temperature: 97.4 F Pulse Rate: 59 Blood Pressure: 120/103 Respiratory Rate: 16 Pulse Ox: 100 Oxygen Delivery Method: Room Air Assessment Airway patent: Yes Spontaneous unlabored respirations: Yes Mental status: Awake and Calm nausea: No Vomiting: No Anesthesia Complication: No Fluid Hydration Crystalloid volume administer (ml): 4 Total IV fluid infused: 4 Progress Note Anesthesia document: Postop Eval 1 completed: Yes
--- NOTE | 2024-02-21 13:26 | PCM.POSTANE2 ---
Anesthesia Postop Eval I Sum Postop Eval Completion status Anesthesia document: Postop Eval 1 completed: Yes Anesthesia Postop Eval I Summary Anesthesia Postop Eval I Summary: Anesthesia Postop Eval I: Assessment Summary Airway patent Yes 02/21/24 11:38 Spontaneous unlabored Yes 02/21/24 11:38 respirations Mental status Awake,Calm 02/21/24 11:38 nausea No 02/21/24 11:38 Vomiting No 02/21/24 11:38 Anesthesia Postop Eval I: Fluid Summary Crystalloid volume administer 4 02/21/24 11:38 (ml) Colloids volume administered ( ml) Blood Product volume administered (ml) Total IV fluid infused 4 02/21/24 11:38 Anesthesia Postop Eval I: Summary Notes Anesthesia Complication No 02/21/24 11:38 Anesthesia Complication Comment: Post-operative progress note Anesthesia: Postop Eval II Evaluation Mental status: Awake Pain Level: 0 nausea: No Vomiting: No
== END 2024-02-21 12:10 | disposition home or self-care (01) ==
LOC: SDC 07:42 → AC 07:43
PROVIDERS: PCP Nurse Practitioner Family; Referring Provider Anesthesiology Pain Medicine; Visit Provider Anesthesiology Pain Medicine
PROC: 3E0U3BZ Introduction of Anesthetic Agent into Joints, Percutaneous Approach (ICD-10-PCS; CPT 64490; principal; 2024-02-21 09:15)
DX: M47.812 Spondylosis without myelopathy or radiculopathy, cervical region (principal); M50.30 Other cervical disc degeneration, unspecified cervical region; M46.92 Unspecified inflammatory spondylopathy, cervical region; I10 Essential (primary) hypertension; Z79.899 Other long term (current) drug therapy
CPT/HCPCS: 64492; 64491; 01992; 64490; 72040; A4216; J2405

== ENCOUNTER 2024-05-10 07:47 | Day surgery (SDC) | payer OTHER, SELFPAY ==
[2024-05-10] VITALS (8 sets, daily range): BP systolic 110–160; BP diastolic 62–98; PULSE 68–85; RESP 12–18; TEMP 36.2–36.6; O2SAT 98–100; BMI 34.8
--- NOTE | 2024-05-10 08:11 | PCM.PRE.AN2 ---
ASA Classification* ASA Classification ASA Classification: 2 Assessment & Plan Anesthesia* Anesthesia Assessment Anesthesia Assessment: Discussed sedation and/or anesthesia options, risks, benefits, and alternatives with patient/parents/legal guardian/POA. Questions invited. The patient/parents/legal guardian/POA seems to understand and agrees to proceed with anesthesia plan. Reviewed the physical assessment, medical history, allergy history and patient home medications list prior to surgery/procedure/anesthetic and documented any changes. Performed airway and anesthesia risk assessments. Anesthesia Type Anesthesia Type: MAC Anesthesia Focused Assessment* Temperature: 98 F Pulse Rate: 78 Blood Pressure: 160/98 Respiratory Rate: 16 Pulse Ox: 100 Airway Assessment Mouth opens: >3 cm Mallampati Score: II Focused Labs Anesthesia Preop lab: CBC WBC 4.8 K/mm3 (4.4-11.0) 07/19/23 14:02 07/19/23 RBC 4.53 M/mm3 (4.2-5.4) 07/19/23 14:02 07/19/23 Hgb 13.4 g/dL (12.0-15.0) 07/19/23 14:02 07/19/23 Hct 41.1 % (37-47) 07/19/23 14:02 07/19/23 Plt Count 197 K/mm3 (150-450) 07/19/23 14:02 07/19/23 CHEMISTRY Potassium 4.0 mmol/L (3.5-5.1) 07/19/23 14:02 07/19/23 Sodium 141 mmol/L (136-145) 07/19/23 14:02 07/19/23 Magnesium 1.8 mg/dL (1.8-2.4) 10/05/13 11:32 10/05/13 Phosphorus 3.0 mg/dL (2.5-4.9) 10/05/13 11:32 10/05/13 BUN 12 mg/dL (7-18) 07/19/23 14:02 07/19/23 Creatinine 0.85 mg/dL (0.55-1.02) 07/19/23 14:02 07/19/23 Glucose 79 mg/dL (74-106) 07/19/23 14:02 07/19/23 TSH 3.25 uIU/mL (0.358-3.74) 07/08/22 10:54 07/08/22 COAG Pre-Assessment Diagnosis/Proposed Procedure Planned Operative Procedure(s): cscope Anesthesia History 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 When Was Last Pacemaker Check QUESTION #4 FULL TEXT: You/Your Family Experience fever (hyperthermia) with Anesthesia Last Oral Intake Last Oral intake: Last Oral Intake NPO since 02:00 05/10/24 08:04 Meds taken in AM with sips of No 05/10/24 08:04 water? Meds patient instructed to take am of surgery PONV PONV - station operator: PONV - station operator Female Yes 05/09/24 14:07 HX of Motion Sickness Yes 05/09/24 14:07 HX of N/V After Surgery No 05/09/24 14:07 Non-Smoker Yes 05/09/24 14:07 Duration of Surgery greater No 05/09/24 14:07 than 60 minutes Number of Risk Factors 3 05/09/24 14:07 PONV Score Moderate Risk 05/09/24 14:07 Height & Weight Height & Weight: Anesthesia: Height & Weight Height 5 ft 4 in 05/10/24 08:04 Weight: 92 kg 05/10/24 08:04 Body Mass Index (BMI) 34.8 05/10/24 08:04 Respiratory Assessment Respiratory Assessment - station operator: Respiratory Tract Infection Hx - station operator Hx Respiratory Tract Infection No 05/09/24 14:07 STOP Sleep Apnea STOP Sleep Apnea - station operator: STOP Sleep Apnea - station operator Hx Hypertension No 05/09/24 14:07 Hx Sleep Apnea No 05/09/24 14:07 CPAP BIPAP Do you snore loudly (louder No 05/09/24 14:07 than talking or can be heard Do you often feel tired/ No 05/09/24 14:07 fatigued/ sleepy during daytime? Has anyone observed you stop No 05/09/24 14:07 breathing during sleep? STOP Results Negative 05/09/24 14:07 QUESTION #5 FULL TEXT : Do you snore loudly (louder than talking or can be heard through closed doors)? 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 Specify any problems Hx of Preganancy in last 3 N/A 05/09/24 14:07 Months Nurse Filling Out Transfusion NBUCHER 05/09/24 14:07 & Questions: Date: 05/09/24 05/09/24 14:07 Time: 14:08 05/09/24 14:07 Patient unable to answer at this time (ie. confused, unrespo /Reproduction History /Reproductive History - station operator: /Reproductive Hx- station operator Hx Now No 05/09/24 14:07 Gestational Age (in weeks): EDC: Hx Hx Para Hx Section SAB No 05/09/24 14:07 PFSH Medical History Wears glasses Arthritis Low iron Migraine headache GERD (gastroesophageal reflux disease) Non-smoker HTN (hypertension) Depression Anxiety Contact dermatitis due to plant h/o ulnar nerve release Fibromyalgia Anemia Home Medications ?Medication ?Instructions ?Recorded ?Last Taken ?Type zolpidem 5 mg tablet (Ambien) 10 mg PO QHS 11/10/18 02/20/24 History njahvnk-ecgxtzylefecq-mfghpstp 250 1 tab PO PRN 04/03/20 05/03/24 History mg-250 mg-65 mg tablet (Excedrin Migraine) ibuprofen 200 mg capsule 200 mg PO Q6H PRN pain 04/03/20 08/22/23 History diphenhydramine HCl 25 mg capsule 25 mg PO QHS PRN allergy symptoms 09/22/22 08/22/23 History (Benadryl) lisinopril 10 mg tablet 10 mg PO QHS 09/22/22 02/20/24 History ferrous sulfate 325 mg (65 mg 325 mg PO DAILY 08/17/23 05/03/24 History iron) tablet (Feosol) acyclovir 400 mg tablet 400 mg PO TID PRN cold sore 02/21/24 Unknown History bupropion HCl 150 mg 24 hr tablet, 450 mg PO QHS 02/21/24 Unknown History extended release cholecalciferol (vitamin D3) 50 5,000 unit PO DAILY 02/21/24 Unknown History mcg (2,000 unit) capsule omega 2-npr-wbg-fish oil 1,200 mg 1 cap PO DAILY 02/21/24 05/03/24 History (144 mg-216 mg) capsule (Fish Oil) omeprazole 20 mg capsule,delayed 20 mg PO QHS PRN gerd 02/21/24 Unknown History release sumatriptan succinate 6 mg/0.5 mL 6 mg subcut Q1-4H PRN migraine 02/21/24 Unknown History subcutaneous cartridge (refill) headache tizanidine 2 mg capsule (Zanaflex) 4 mg PO Q8H PRN muscle spasticity 02/21/24 Unknown History tramadol 50 mg tablet 50 mg PO Q8H PRN pain 02/21/24 Unknown History Allergy/AdvReac Type Severity Reaction Status Date / Time No Known Allergies Allergy Verified 05/10/24 08:02 Family History Father Diabetes Grandmother Colon cancer Paternal, In her 60's Surgical History H/O: hysterectomy History of gastric bypass History of hysterectomy History of carpal tunnel repair Hx of tonsillectomy History of Social History household members: spouse and children housing: house current occupation: [employer] Smoking Status: Never smoker alcohol intake: never substance use type: does not use do you feel safe at home: Yes Review of Systems (Anesthesia) ROS Narrative System reviewed and no additional complaints, except as documented.
--- NOTE | 2024-05-10 08:30 | PCM.HP.STD ---
HPI - General General Date of Admission: 05/10/24 Date of Service: 05/10/24 Chief Complaint: Screening colon HPI Narrative TINY MCCONNELL, is a 53 F who presents today for her first colonoscopy. She is having a colonoscopy in the past. She has a past medical history of mild hypertension, GERD and mild depression. All of those are controlled with medications. [facility] Medical History Wears glasses Arthritis Low iron Migraine headache GERD (gastroesophageal reflux disease) Non-smoker HTN (hypertension) Depression Anxiety Contact dermatitis due to plant h/o ulnar nerve release Fibromyalgia Anemia Home Medications ?Medication ?Instructions ?Recorded ?Last Taken ?Type zolpidem 5 mg tablet (Ambien) 10 mg PO QHS 11/10/18 02/20/24 History vmnotcc-nbwbtwjzjjjhb-fvijpmsp 250 1 tab PO PRN 04/03/20 05/03/24 History mg-250 mg-65 mg tablet (Excedrin Migraine) ibuprofen 200 mg capsule 200 mg PO Q6H PRN pain 04/03/20 08/22/23 History diphenhydramine HCl 25 mg capsule 25 mg PO QHS PRN allergy symptoms 09/22/22 08/22/23 History (Benadryl) lisinopril 10 mg tablet 10 mg PO QHS 09/22/22 02/20/24 History ferrous sulfate 325 mg (65 mg 325 mg PO DAILY 08/17/23 05/03/24 History iron) tablet (Feosol) acyclovir 400 mg tablet 400 mg PO TID PRN cold sore 02/21/24 Unknown History bupropion HCl 150 mg 24 hr tablet, 450 mg PO QHS 02/21/24 Unknown History extended release cholecalciferol (vitamin D3) 50 5,000 unit PO DAILY 02/21/24 Unknown History mcg (2,000 unit) capsule omega 3-alp-zvv-fish oil 1,200 mg 1 cap PO DAILY 02/21/24 05/03/24 History (144 mg-216 mg) capsule (Fish Oil) omeprazole 20 mg capsule,delayed 20 mg PO QHS PRN gerd 02/21/24 Unknown History release sumatriptan succinate 6 mg/0.5 mL 6 mg subcut Q1-4H PRN migraine 02/21/24 Unknown History subcutaneous cartridge (refill) headache tizanidine 2 mg capsule (Zanaflex) 4 mg PO Q8H PRN muscle spasticity 02/21/24 Unknown History tramadol 50 mg tablet 50 mg PO Q8H PRN pain 02/21/24 Unknown History Allergy/AdvReac Type Severity Reaction Status Date / Time No Known Allergies Allergy Verified 05/10/24 08:02 Family History Father Diabetes Grandmother Colon cancer Paternal, In her 60's Surgical History H/O: hysterectomy History of gastric bypass History of hysterectomy History of carpal tunnel repair Hx of tonsillectomy History of Social History household members: spouse and children housing: house current occupation: [employer] Smoking Status: Never smoker alcohol intake: never substance use type: does not use do you feel safe at home: Yes ROS Constitutional Constitutional: Denies fatigue, fever(s), poor appetite, weight gain or weight loss Gastrointestinal Gastrointestinal: Denies belching, bloating, change in bowel habits, change in stool character, chewing difficulty, coffee ground emesis, constipation, cramping, diarrhea, dyspepsia, dysphagia, early satiety, excessive flatus, fecal incontinence, heartburn, hematemesis, hematochezia, hemorrhoids, loose stools, melena, nausea, odynophagia, rectal bleeding, tenesmus, vomiting or weight changes Vital Signs Vital Signs Vital Signs: 05/10/24 08:04 05/10/24 08:04 05/10/24 08:11 Temperature 98 F 98 F Temperature Source Temporal Pulse Rate 78 78 Respiratory Rate 16 16 Respiratory Pattern Irregular Blood Pressure 160/98 H 160/98 H Blood Pressure Mean 118 Blood Pressure Source Monitor Blood Pressure Position Semi-Fowlers Blood Pressure Location Right Arm Pulse Ox 100 100 Oxygen Delivery Method Room Air Weight Weight: 202 lb 13.204 oz Body Mass Index (BMI) 34.8 Physical Exam Const alert, oriented x3, no apparent distress and healthy appearing General Appearance: cooperative GI normal to inspection, nondistended, normoactive bowel sounds, soft to palpation, non-tender and non-distended Percussion: normal to percussion Rectal Exam: deferred Assessment & Plan Assessment/Plan (1) Encounter for screening for malignant neoplasm of colon: PLAN: She was explained alternatives, benefits, risk including not withstanding bleeding, infection, sepsis, perforation, need for emergent urgent . She will have an ASA of 3.
--- NOTE | 2024-05-10 09:11 | PCM.POST.ANE ---
Anesthesia: Postop Eval I Current Vital Signs Temperature: 97.2 F Pulse Rate: 76 Blood Pressure: 112/62 Respiratory Rate: 16 Pulse Ox: 99 Oxygen Delivery Method: Room Air Assessment Airway patent: Yes Spontaneous unlabored respirations: Yes Mental status: Awake and Calm nausea: No Vomiting: No Anesthesia Complication: No Fluid Hydration Crystalloid volume administer (ml): 50 Total IV fluid infused: 50 Progress Note Anesthesia document: Postop Eval 1 completed: Yes
--- NOTE | 2024-05-10 09:13 | OP.CCLET_ITS ---
05/10/2024 Barry Dobson Re : Colonoscopy procedure for Anabel Salazar Dear Stas This procedure was performed on Friday, May 10, 2024. My impressions and recommendations are as follows: Impressions : - Diverticulosis in the recto-sigmoid colon. - Stool in the recto-sigmoid colon, in the sigmoid colon, in the ascending colon and in the cecum. - The examination was otherwise normal on direct and retroflexion views. - No specimens collected. Recommendations : - Discharge patient to home. - Resume previous diet. - Continue present medications. - Repeat colonoscopy in 10 years for screening purposes. My findings are described in the full procedure note, which is enclosed. If I can be of further assistance, please feel free to contact me at . Sincerely, Tico Hernandez, 05/10/2024 9:12:34 AM This report has been signed electronically.
--- NOTE | 2024-05-10 09:13 | OP.COLON_ITS ---
Patient Name: Anabel Salazar Procedure Date: 05/10/2024 8:37 AM Date of : 1970 Age: 53 Procedure: Colonoscopy Indications: Screening for colorectal malignant neoplasm Providers: Tico Hernandez DO Referring MD: Barry Dobson Medicines: Monitored Anesthesia Care Patient Profile: This is a 53 year old female. Refer to note in patient chart for documentation of history and physical. Last Colonoscopy: none. The patient's first colonoscopy is today. Complications: No immediate complications. Procedure: Pre-Anesthesia Assessment: - Prior to the procedure, a History and Physical was performed, and patient medications and allergies were reviewed. The patient is competent. The risks and benefits of the procedure and the sedation options and risks were discussed with the patient. All questions were answered and informed consent was obtained. Patient identification and proposed procedure were verified by the physician in the pre-procedure area. Mental Status Examination: alert and oriented. Airway Examination: normal oropharyngeal airway and neck mobility. Respiratory Examination: clear to auscultation. CV Examination: normal. Prophylactic Antibiotics: The patient does not require prophylactic antibiotics. Prior Anticoagulants: The patient has taken no anticoagulant or antiplatelet agents. ASA Grade Assessment: II - A patient with mild systemic disease. After reviewing the risks and benefits, the patient was deemed in satisfactory condition to undergo the procedure. The anesthesia plan was to use monitored anesthesia care (MAC). Immediately prior to administration of medications, the patient was re-assessed for adequacy to receive sedatives. The heart rate, respiratory rate, oxygen saturations, blood pressure, adequacy of pulmonary ventilation, and response to care were monitored throughout the procedure. The physical status of the patient was re-assessed after the procedure. After I obtained informed consent, the scope was passed under direct vision. Throughout the procedure, the patient's blood pressure, pulse, and oxygen saturations were monitored continuously. The Colonoscope was introduced through the anus and advanced to the cecum, identified by the appendiceal orifice, IC valve and transillumination. The colonoscopy was performed without difficulty. The patient tolerated the procedure well. The quality of the bowel preparation was adequate. The ileocecal valve, appendiceal orifice, and rectum were photographed. Scope In: 8:47:18 AM Scope Withdrawal Time 0 hours 9 minutes 35 seconds Scope Out: 9:02:22 AM Total Procedure Duration Time 0 hours 15 minutes 4 seconds Findings: The perianal and digital rectal examinations were normal. A few small-mouthed diverticula were found in the recto-sigmoid colon. A moderate amount of stool was found in the recto-sigmoid colon, in the sigmoid colon, in the ascending colon and in the cecum, interfering with visualization. Lavage of the area was performed using a moderate amount of sterile water, resulting in clearance with good visualization. The exam was otherwise without abnormality on direct and retroflexion views. Impression: - Diverticulosis in the recto-sigmoid colon. - Stool in the recto-sigmoid colon, in the sigmoid colon, in the ascending colon and in the cecum. - The examination was otherwise normal on direct and retroflexion views. - No specimens collected. Recommendation: - Discharge patient to home. - Resume previous diet. - Continue present medications. - Repeat colonoscopy in 10 years for screening purposes. Procedure Code(s): --- Professional --- G0121, Colorectal cancer screening; colonoscopy on individual not meeting criteria for high risk CPT copyright 2021 [employer]. All rights reserved. The codes documented in this report are preliminary and upon typesetter apprentice review may be revised to meet current compliance requirements. Tcio Hernandez DO 05/10/2024 9:12:34 AM This report has been signed electronically. Number of Addenda: 0 Note Initiated On: 05/10/2024 8:37 AM
--- NOTE | 2024-05-10 09:18 | PCM.POSTANE2 ---
Anesthesia Postop Eval I Sum Postop Eval Completion status Anesthesia document: Postop Eval 1 completed: Yes Anesthesia Postop Eval I Summary Anesthesia Postop Eval I Summary: Anesthesia Postop Eval I: Assessment Summary Airway patent Yes 05/10/24 09:12 [email or web address] Spontaneous unlabored Yes 05/10/24 09:12 [email or web address] respirations Mental status Awake,Calm 05/10/24 09:12 [email or web address] nausea No 05/10/24 09:12 [email or web address] Vomiting No 05/10/24 09:12 [email or web address] Anesthesia Postop Eval I: Fluid Summary Crystalloid volume administer 50 05/10/24 09:12 [email or web address] (ml) Colloids volume administered ( ml) Blood Product volume administered (ml) Total IV fluid infused 50 05/10/24 09:12 [email or web address] Anesthesia Postop Eval I: Summary Notes Anesthesia Complication No 05/10/24 09:12 [email or web address] Anesthesia Complication Comment: Post-operative progress note Anesthesia: Postop Eval II Evaluation Mental status: Awake Pain Level: 0 nausea: No Vomiting: No
== END 2024-05-10 09:38 | disposition home or self-care (01) ==
LOC: EN 07:47 → AC 07:49
PROVIDERS: PCP Nurse Practitioner Family; Referring Provider Nurse Practitioner Family; Visit Provider Internal Medicine Gastroenterology
PROC: 0DJD8ZZ Inspection of Lower Intestinal Tract, Via Natural or Artificial Opening Endoscopic (ICD-10-PCS; CPT 45378; principal; 2024-05-10 08:40)
DX: Z12.11 Encounter for screening for malignant neoplasm of colon (principal); Z80.0 Family history of malignant neoplasm of digestive organs; Z79.82 Long term (current) use of aspirin; I10 Essential (primary) hypertension; K57.90 Diverticulosis of intestine, part unspecified, without perforation or abscess without bleeding; K21.9 Gastro-esophageal reflux disease without esophagitis; F32.A Depression, unspecified; Z79.899 Other long term (current) drug therapy; Z90.710 Acquired absence of both cervix and uterus
CPT/HCPCS: 45378; A4216; J2405

== ENCOUNTER 2024-05-22 08:31 | Day surgery (SDC) | payer OTHER, SELFPAY ==
[2024-05-22] VITALS (7 sets, daily range): BP systolic 118–135; BP diastolic 73–84; PULSE 63–69; RESP 16–18; TEMP 36.4–37.1; O2SAT 98–100; BMI 36.0
--- NOTE | 2024-05-22 10:07 | PRE.ANES_ITS ---
ASA Classification* ASA Classification ASA Classification: 2 Assessment & Plan Anesthesia* Anesthesia Assessment Anesthesia Assessment: Discussed sedation and/or anesthesia options, risks, benefits, and alternatives with patient/parents/legal guardian/POA. Questions invited. The patient/parents/legal guardian/POA seems to understand and agrees to proceed with anesthesia plan. Reviewed the physical assessment, medical history, allergy history and patient home medications list prior to surgery/procedure/anesthetic and documented any changes. Performed airway and anesthesia risk assessments. Anesthesia Type Anesthesia Type: MAC Anesthesia Focused Assessment* Temperature: 98.7 F Pulse Rate: 64 Blood Pressure: 135/84 Respiratory Rate: 17 Pulse Ox: 100 Oxygen Delivery Method: Room Air Airway Assessment Mouth opens: >3 cm Mallampati Score: II Teeth Condition: Intact Neck Range of motion (ROM): Full ROM Focused Labs Anesthesia Preop lab: CBC WBC 4.8 K/mm3 (4.4-11.0) 07/19/23 14:07/19/23 RBC 4.53 M/mm3 (4.2-5.4) 07/19/23 14:02 07/19/23 Hgb 13.4 g/dL (12.0-15.0) 07/19/23 14:07/19/23 Hct 41.1 % (37-47) 07/19/23 14:02 07/19/23 Plt Count 197 K/mm3 (150-450) 07/19/23 14:02 07/19/23 CHEMISTRY Potassium 4.0 mmol/L (3.5-5.1) 07/19/23 14:02 07/19/23 Sodium 141 mmol/L (136-145) 07/19/23 14:02 07/19/23 Magnesium 1.8 mg/dL (1.8-2.4) 10/05/13 11:32 10/05/13 Phosphorus 3.0 mg/dL (2.5-4.9) 10/05/13 11:32 10/05/13 BUN 12 mg/dL (7-18) 07/19/23 14:02 07/19/23 Creatinine 0.85 mg/dL (0.55-1.02) 07/19/23 14:02 07/19/23 Glucose 79 mg/dL (74-106) 07/19/23 14:02 07/19/23 TSH 3.25 uIU/mL (0.358-3.74) 07/08/22 10:54 COAG Pre-Assessment Diagnosis/Proposed Procedure Planned Operative Procedure(s): RIGHT sided cervical facet steroid injection C4,5,6,7 under flouroscopy Anesthesia History Anesthesia History - senior laboratory technician: Anesthesia History - senior laboratory technician Hx Hospitalization No 05/09/24 14:07 Any Problems With Anesthesia No 05/09/24 14:07 Cholinesterase deficiency No 05/09/24 14:07 You/Your Family Experience No 05/09/24 14:07 fever (hyperthermia) with Relationship Recent Exposure to Contagious No 05/22/24 09:07 Disease Does patient have nerve No 05/09/24 14:07 stimulator Patient instructed to have device shut off --Does patient have Pacemaker No 05/22/24 09:07 or ICD? When Was Last Pacemaker Check QUESTION #4 FULL TEXT: You/Your Family Experience fever (hyperthermia) with Anesthesia Last Oral Intake Last Oral intake: Last Oral Intake NPO since 00:00 05/22/24 09:07 Meds taken in AM with sips of No 05/22/24 09:07 water? Meds patient instructed to take am of surgery PONV PONV - senior laboratory technician: PONV - senior laboratory technician Female HX of Motion Sickness HX of N/V After Surgery Non-Smoker Duration of Surgery greater than 60 minutes Number of Risk Factors PONV Score Height & Weight Height & Weight: Anesthesia: Height & Weight Height 5 ft 4 in 05/22/24 09:07 Weight: 95.2 kg 05/22/24 09:07 Body Mass Index (BMI) 36.0 05/22/24 09:07 Respiratory Assessment Respiratory Assessment - senior laboratory technician: Respiratory Tract Infection Hx - senior laboratory technician Hx Respiratory Tract Infection No 05/09/24 14:07 STOP Sleep Apnea STOP Sleep Apnea - senior laboratory technician: STOP Sleep Apnea - senior laboratory technician Hx Hypertension No 05/09/24 14:07 Hx Sleep Apnea No 05/10/24 09:20 CPAP BIPAP Do you snore loudly (louder than talking or can be heard Do you often feel tired/ fatigued/ sleepy during daytime? Has anyone observed you stop breathing during sleep? STOP Results QUESTION #5 FULL TEXT : Do you snore loudly (louder than talking or can be heard through closed doors)? Tobacco Use History Tobacco Use History - senior laboratory technician: Tobacco Use History - senior laboratory technician Tobacco Use Smoking Status Never smoker 05/09/24 14:07 Hx Tobacco Use No 05/09/24 14:07 Years Smoking Packs Smoked per Day Smoking Cessation Date was within the last 15 years Hx Smoking Cessation Date Hx Smoking Cessation Counseling Hematologic Medial History Hematologic Hx - senior laboratory technician: Hematologic Medical Hx - documentation engineer Hx of Blood Transfusion Hx of Transfusion in last 3 Months Date of Last Transfusion (if within last 3 months) Ever experience any problems with transfusion(s)? Specify any problems Hx of Preganancy in last 3 Months Nurse Filling Out Transfusion & Questions: Date: Time: Patient unable to answer at this time (ie. confused, unrespo /Reproduction History /Reproductive History - senior laboratory technician: /Reproductive Hx- senior laboratory technician Hx Now Gestational Age (in weeks): EDC: Hx Hx Para Hx Section SAB No 05/09/24 14:07 [facility] Medical History Wears glasses Arthritis Low iron Migraine headache GERD (gastroesophageal reflux disease) Non-smoker HTN (hypertension) Depression Anxiety Contact dermatitis due to plant h/o ulnar nerve release Fibromyalgia Anemia Home Medications ?Medication ?Instructions ?Recorded ?Last Taken ?Type zolpidem 5 mg tablet (Ambien) 10 mg PO QHS 11/10/18 History lhnqpld-euaapjodcvetl-pngewskc 250 1 tab PO PRN 05/03/24 History mg-250 mg-65 mg tablet (Excedrin Migraine) ibuprofen 200 mg capsule 400 mg PO Q6H PRN pain 04/0305/22/24 History diphenhydramine HCl 25 mg capsule 25 mg PO QHS PRN all ergy symptoms 09/22/22 0 08/22/23 History (Benadryl) lisinopril 10 mg tablet 10 mg PO QHS 09/22/22 History ferrous sulfate 325 mg (65 mg 325 mg PO DAILY 08/17/23 05/21/24 History iron) tablet (Feosol) acyclovir 400 mg tablet 400 mg PO TID PRN cold sore 02/21/24 Unknown History bupropion HCl 150 mg 24 hr tablet, 450 mg PO QHS 02/2005/21/24 History extended release cholecalciferol (vitamin D3) 50 5,000 unit PO DAILY 05/21/24 History mcg (2,000 unit) capsule omega 9-fib-jgi-fish oil 1,200 mg 1 cap PO DAILY 02/2005/21/24 History (144 mg-216 mg) capsule (Fish Oil) omeprazole 20 mg capsule,delayed 20 mg PO QHS PRN gerd 02/21/24 Unknown History release sumatriptan succinate 6 mg/0.5 mL 6 mg subcut Q1-4H RI N migraine 02/21/24 Unkn own History subcutaneous cartridge (refill) headache tizanidine 2 mg capsule (Zanaflex) 4 mg PO Q8H PRN [place] spasticity 02/21/24 Unknown History tramadol 50 mg tablet 50 mg PO Q8H PRN pain Unknown History Allergy/AdvReac Type Severity Reaction Status Date / Time No Known Allergies Allergy Verified 05/22/24 09:04 Family History Father Diabetes Grandmother Colon cancer Paternal, In her 60's Surgical History H/O: hysterectomy History of gastric bypass History of hysterectomy History of carpal tunnel repair Hx of tonsillectomy History of Social History household members: spouse and children housing: house current occupation: [employer] Smoking Status: Never smoker alcohol intake: never substance use type: does not use do you feel safe at home: Yes Review of Systems (Anesthesia) ROS Narrative System reviewed and no additional complaints, except as documented.
--- NOTE | 2024-05-22 10:10 | RAD_ITS ---
PROCEDURE: Fluoroscopy use. 05/22/2024 REASON FOR EXAM: BLOCK, CERVICAL FACET RT TECHNIQUE: 4 intraoperative spot images were obtained during right cervical facet block. 9.7 seconds of fluoroscopic time utilized. COMPARISON: None. FINDINGS: 4 intraoperative spot images were obtained during right cervical facet nerve block. A needle projects over several levels of what is presumably the right side of the cervical spine. No laterality marker on the provided images. RAD/Fluor Guidance for Spine Inj IMPRESSION: Documentation of fluoroscopy use during right cervical facet block. Please see the procedure note for details. Reading Location: [facility]
[2024-05-22] MEDS: MethylPREDNISolone Acetate 80 MG/ML Vial (10:17)
[2024-05-22] MEDS: Bupivacaine 0.25% 30 ML Vial (10:18)
--- NOTE | 2024-05-22 10:22 | PCM.OPRPT ---
Operative Report (Standard) Operative Information Date of Procedure: 05/22/24 Pre-Operative Diagnosis: Cervical spondylosis, cervical facet arthropathy, cervical degenerative disc disease Post-Operative Diagnosis: Cervical spondylosis, cervical degenerative disc disease, cervical facet arthropathy Surgery/Procedure Performed: Right-sided cervical facet steroid injection C4-5, C5-6, C6-7 trouble shooting mechanic: No Type of Anesthesia: Local MAC RN Documented Start/Stop Times: Operation Date: 05/22/24 10:00 Case Time Into Pre-Op 05/22/24 09:07 Anesthesia Start 05/22/24 10:11 Into Room 05/22/24 10:11 Out of Pre-Op 05/22/24 10:11 Procedure Start 05/22/24 10:16 Procedure End 05/22/24 10:18 Procedure Start Time: 10:22 Procedure Stop Time: : Select all DRAINS/GRAFTS/IMPLANTS that apply: None Estimated Blood Loss: 0 Specimen collected: No Description of surgery: ANESTHESIA: MAC. BLOOD LOSS: Minimal. COMPLICATIONS: None. DESCRIPTION OF PROCEDURE: History and physical of today was reviewed. Risks and benefits of the procedure were explained. The patient understood and agreed to proceed. Informed consent was obtained. IV inserted per routine protocol. The patient was taken to the operating room and placed in the prone position with a pillow positioned underneath the chest. The neck area was prepped and draped in a sterile fashion using iodine x3. Under fluoroscopy guidance on an AP view, the C4 through C7 vertebral bodies were visualized at approximately 10-degree angle, starting on the right C4, ending on the right C7, passing through the C5 and C6. Using a 25-gauge 3-1/2-inch spinal needle, the needle was advanced via the skin. The tip of the needle was maneuvered and directed towards the epiphyseal junction of each corresponding vertebra. Once the tip of the needle was at the vicinity of the medial branch, the needle was pulled approximately 2 mm off the bone. After negative aspiration of blood or CSF and confirmation on AP, oblique as well as lateral view, a total of 4 mL of preservative-free 0.25% Marcaine with 80 mg of Depo-Medrol was injected in divided doses between those four levels. The needles were then removed intact. The patient experienced no sign or symptoms of intrathecal or intravascular injection. The patient experienced no paresthesia. The procedure was completed without any apparent difficulty or any complications. The patient appeared to tolerate it well. ASSESSMENT AND PLAN: This is a 53-year-old female with cervical spondylosis, cervical degenerative disc disease, cervical facet arthropathy, status post right-sided cervical facet steroid injection C4-C7, patient will continue her current medications, patient will follow-up in approximately 1 to 2 weeks for reevaluation. Surgical Findings: 0 Complications Complications: No Admit VTE Documentation VTE Present on Admission: No VTE Mechan Device Prophylaxis: None VTE Pharm Prophylaxis ordered?: No
--- NOTE | 2024-05-22 10:29 | PCM.POST.ANE ---
Anesthesia: Postop Eval I Current Vital Signs Temperature: 97.6 F Pulse Rate: 68 Blood Pressure: 118/79 Respiratory Rate: 18 Pulse Ox: 99 Oxygen Delivery Method: Room Air Assessment Airway patent: Yes Spontaneous unlabored respirations: Yes Mental status: Awake nausea: No Vomiting: No Anesthesia Complication: No Fluid Hydration Crystalloid volume administer (ml): 10 Total IV fluid infused: 10 Progress Note Anesthesia document: Postop Eval 1 completed: Yes
--- NOTE | 2024-05-22 10:36 | POSTOPAN2_ITS ---
Anesthesia Postop Eval I Sum Postop Eval Completion status Anesthesia document: Postop Eval 1 completed: Yes Anesthesia Postop Eval I Summary Anesthesia Postop Eval I Summary: Anesthesia Postop Eval I: Assessment Summary Airway patent Yes 05/22/24 10:30 [email or web address] Spontaneous unlabored Yes 05/22/24 10:30 [email or web address] [email or web address] respirations Mental status Awake 05/22/24 10:30 [email or web address] nausea No 05/22/24 10:30 [email or web address] [email or web address] Vomiting No 05/22/24 10:30 [email or web address] Anesthesia Postop Eval I: Fluid Summary Crystalloid volume administer 10 05/22/24 10:30 [email or web address] (ml) Colloids volume administered ( ml) Blood Product volume administered (ml) Total IV fluid infused 10 05/22/24 10:30 [email or web address] Anesthesia Postop Eval I: Summary Notes Anesthesia Complication No 05/22/24 10:30 [email or web address] Anesthesia Complication Comment: Post-operative progress note Anesthesia: Postop Eval II Evaluation Mental status: Awake Pain Level: 3 nausea: No Vomiting: No
--- NOTE | 2024-05-22 10:36 | PCM.POSTANE2 ---
Anesthesia Postop Eval I Sum Postop Eval Completion status Anesthesia document: Postop Eval 1 completed: Yes Anesthesia Postop Eval I Summary Anesthesia Postop Eval I Summary: Anesthesia Postop Eval I: Assessment Summary Airway patent Yes 05/22/24 10:30 INTEGRATIVE MEDICINE [email or web address] Spontaneous unlabored Yes 05/22/24 10:30 INTEGRATIVE MEDICINE [email or web address] respirations Mental status Awake 05/22/24 10:30 INTEGRATIVE MEDICINE [email or web address] nausea No 05/22/24 10:30 INTEGRATIVE MEDICINE [email or web address] Vomiting No 05/22/24 10:30 INTEGRATIVE MEDICINE [email or web address] Anesthesia Postop Eval I: Fluid Summary Crystalloid volume administer 10 05/22/24 10:30 INTEGRATIVE MEDICINE [email or web address] (ml) Colloids volume administered ( ml) Blood Product volume administered (ml) Total IV fluid infused 10 05/22/24 10:30 INTEGRATIVE MEDICINE [email or web address] Anesthesia Postop Eval I: Summary Notes Anesthesia Complication No 05/22/24 10:30 INTEGRATIVE MEDICINE [email or web address] Anesthesia Complication Comment: Post-operative progress note Anesthesia: Postop Eval II Evaluation Mental status: Awake Pain Level: 3 nausea: No Vomiting: No
== END 2024-05-22 10:54 | disposition home or self-care (01) ==
LOC: SDC 08:32 → AC 08:50
PROVIDERS: PCP Nurse Practitioner Family; Referring Provider Anesthesiology Pain Medicine; Visit Provider Anesthesiology Pain Medicine
PROC: 3E0U3BZ Introduction of Anesthetic Agent into Joints, Percutaneous Approach (ICD-10-PCS; CPT 64490; principal; 2024-05-22 09:55)
DX: M47.812 Spondylosis without myelopathy or radiculopathy, cervical region (principal); M50.30 Other cervical disc degeneration, unspecified cervical region; M46.92 Unspecified inflammatory spondylopathy, cervical region; I10 Essential (primary) hypertension; Z79.899 Other long term (current) drug therapy
CPT/HCPCS: 64491; 64492; 64490; 77003; A4216

== ENCOUNTER → 2024-06-14 | Outpatient (CLI) | payer OTHER, SELFPAY ==
--- NOTE | 2024-06-14 14:38 | RAD_ITS ---
PROCEDURE: L/S SPINE W BEND MIN 6 VW 06/14/2024 REASON FOR EXAM: PAIN TECHNIQUE: 6 view(s) of the thoracic and lumbar spine. COMPARISON: None available FINDINGS: Curvature: Lordosis of the lumbar spine. Other findings: Vertebral body heights are well preserved. The intervertebral disc heights are well preserved. No overlying soft tissue swelling. Other: None RAD/L/S Spine w Bend Min 6 Vw IMPRESSION: No acute fracture or traumatic malalignment. Reading Location: [id number]
== END | disposition home or self-care (01) ==
LOC: MTRAD 14:37
PROVIDERS: PCP Nurse Practitioner Family; Referring Provider Anesthesiology Pain Medicine; Visit Provider Anesthesiology Pain Medicine
DX: M54.17 Radiculopathy, lumbosacral region (principal)
CPT/HCPCS: 72114

== ENCOUNTER 2024-07-24 10:34 | Day surgery (SDC) | payer OTHER, SELFPAY ==
[2024-07-24] VITALS (7 sets, daily range): BP systolic 130–167; BP diastolic 87–100; PULSE 53–64; RESP 16–18; TEMP 36.1–36.2; O2SAT 98–99; BMI 36.7
--- NOTE | 2024-07-24 10:55 | RAD_ITS ---
PROCEDURE: FLUOR GUIDANCE FOR SPINE INJ 07/24/2024 REASON FOR EXAM: BLOCK, CAUDAL TECHNIQUE: Fluoroscopic services provided for caudal block. 2.3 seconds of fluoroscopy. 1.49 mGy. 1 image was obtained. COMPARISON: None FINDINGS: Intraoperative imaging provided for caudal block. RAD/Fluor Guidance for Spine Inj IMPRESSION: Intraoperative imaging provided for caudal block. Reading Location: [id number]
--- NOTE | 2024-07-24 11:00 | PRE.ANES_ITS ---
ASA Classification* ASA Classification ASA Classification: 2 Assessment & Plan Anesthesia* Anesthesia Assessment Anesthesia Assessment: Discussed sedation and/or anesthesia options, risks, benefits, and alternatives with patient/parents/legal guardian/POA. Questions invited. The patient/parents/legal guardian/POA seems to understand and agrees to proceed with anesthesia plan. Reviewed the physical assessment, medical history, allergy history and patient home medications list prior to surgery/procedure/anesthetic and documented any changes. Performed airway and anesthesia risk assessments. Anesthesia Type Anesthesia Type: MAC Anesthesia Focused Assessment* Airway Assessment Mouth opens: >3 cm Mallampati Score: II Focused Labs Anesthesia Preop lab: CBC WBC 4.8 K/mm3 (4.4-11.0) 07/19/23 14:02 07/19/23 RBC 4.53 M/mm3 (4.2-5.4) 07/19/23 14:02 07/19/23 Hgb 13.4 g/dL (12.0-15.0) 07/19/23 14:02 07/19/23 Hct 41.1 % (37-47) 07/19/23 14:02 07/19/23 Plt Count 197 K/mm3 (150-450) 07/19/23 14:02 07/19/23 CHEMISTRY Potassium 4.0 mmol/L (3.5-5.1) 07/19/23 14:02 07/19/23 Sodium 141 mmol/L (136-145) 07/19/23 14:02 07/19/23 Magnesium 1.8 mg/dL (1.8-2.4) 10/05/13 11:32 10/05/13 Phosphorus 3.0 mg/dL (2.5-4.9) 10/05/13 11:32 10/05/13 BUN 12 mg/dL (7-18) 07/19/23 14:02 07/19/23 Creatinine 0.85 mg/dL (0.55-1.02) 07/19/23 14:02 07/19/23 Glucose 79 mg/dL (74-106) 07/19/23 14:02 07/19/23 TSH 3.25 uIU/mL (0.358-3.74) 07/08/22 10:54 COAG Pre-Assessment Diagnosis/Proposed Procedure Planned Operative Procedure(s): Caudal block. 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 When Was Last Pacemaker Check QUESTION #4 FULL TEXT: You/Your Family Experience fever (hyperthermia) with Anesthesia Last Oral Intake Last Oral intake: Last Oral Intake NPO since Meds taken in AM with sips of water? Meds patient instructed to take am of surgery PONV PONV - agricultural economics teacher: PONV - agricultural economics teacher Female HX of Motion Sickness HX of N/V After Surgery Non-Smoker Duration of Surgery greater than 60 minutes Number of Risk Factors PONV Score Height & Weight Height & Weight: Anesthesia: Height & Weight Height 5 ft 4 in 05/22/24 09:07 Respiratory Assessment Respiratory Assessment - agricultural economics teacher: Respiratory Tract Infection Hx - agricultural economics teacher Hx Respiratory Tract Infection No 05/09/24 14:07 STOP Sleep Apnea STOP Sleep Apnea - agricultural economics teacher: STOP Sleep Apnea - agricultural economics teacher Hx Hypertension No 07/18/24 12:05 Hx Sleep Apnea No 05/10/24 09:20 CPAP BIPAP Do you snore loudly (louder than talking or can be heard Do you often feel tired/ fatigued/ sleepy during daytime? Has anyone observed you stop breathing during sleep? STOP Results QUESTION #5 FULL TEXT : Do you snore loudly (louder than talking or can be heard through closed doors)? 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 Specify any problems Hx of Preganancy in last 3 Months Nurse Filling Out Transfusion & Questions: Date: Time: Patient unable to answer at this time (ie. confused, unrespo /Reproduction History /Reproductive History - agricultural economics teacher: /Reproductive Hx- agricultural economics teacher Hx Now Gestational Age (in weeks): EDC: Hx Hx Para Hx Section SAB No 05/09/24 14:07 Active Medications Active Medications: Current Medications Generic Name Dose Route Start Last Admin Trade Name Freq PRN Reason Stop Dose Admin Lactated Ringer's 1,000 mls @ 15 mls/hr 07/24/24 10:45 IV .Q48H STAN PFSH Medical History Wears glasses Arthritis Low iron Migraine headache GERD (gastroesophageal reflux disease) Non-smoker HTN (hypertension) Depression Anxiety Contact dermatitis due to plant h/o ulnar nerve release Fibromyalgia Anemia Home Medications ?Medication ?Instructions ?Recorded ?Last Taken ?Type zolpidem 5 mg tablet (Ambien) 10 mg PO QHS 11/10/18 History sudcxqg-aqcvjioyododt-akoqdkwj 250 1 tab PO PRN 05/03/24 History mg-250 mg-65 mg tablet (Excedrin Migraine) ibuprofen 200 mg capsule 400 mg PO Q6H PRN pain 04/0305/22/24 History diphenhydramine HCl 25 mg capsule 25 mg PO QHS PRN all ergy symptoms 09/22/22 08/22/23 History (Benadryl) lisinopril 10 mg tablet 10 mg PO QHS 09/22/22 History ferrous sulfate 325 mg (65 mg 325 mg PO DAILY 08/17/23 05/21/24 History iron) tablet (Feosol) acyclovir 400 mg tablet 400 mg PO TID PRN cold sore 02/21/24 Unknown History bupropion HCl 150 mg 24 hr tablet, 450 mg PO QHS 02/2005/21/24 History extended release cholecalciferol (vitamin D3) 50 5,000 unit PO DAILY 05/21/24 History mcg (2,000 unit) capsule omega 3-gut-jvl-fish oil 1,200 mg 1 cap PO DAILY 02/2005/21/24 History (144 mg-216 mg) capsule (Fish Oil) omeprazole 20 mg capsule,delayed 20 mg PO QHS PRN gerd 02/21/24 Unknown History release sumatriptan succinate 6 mg/0.5 mL 6 mg subcut Q1-4H AR N migraine 02/21/24 Unknown History subcutaneous cartridge (refill) headache tizanidine 2 mg capsule (Zanaflex) 4 mg PO Q8H PRN [place] spasticity 02/21/24 Unknown History tramadol 50 mg tablet 50 mg PO Q8H PRN pain Unknown History Allergy/AdvReac Type Severity Reaction Status Date / Time No Known Allergies Allergy Verified 07/24/24 10:59 Family History Father Diabetes Grandmother Colon cancer Paternal, In her 60's Surgical History H/O: hysterectomy History of gastric bypass History of hysterectomy History of carpal tunnel repair Hx of tonsillectomy History of Social History household members: spouse and children housing: house current occupation: [employer] Smoking Status: Never smoker alcohol intake: never substance use type: does not use do you feel safe at home: Yes Review of Systems (Anesthesia) ROS Narrative System reviewed and no additional complaints, except as documented.
[2024-07-24] MEDS: Lactated Ringers 1,000 ML 15 ML IV (11:15)
[2024-07-24] MEDS: MethylPREDNISolone Acetate 80 MG/ML Vial (11:38)
[2024-07-24] MEDS: Lidocaine 1% (5 ml sdv) 5 ML Vial (11:39)
[2024-07-24] MEDS: Bupivacaine 0.25% 30 ML Vial (11:39)
[2024-07-24] MEDS: 0.9% Normal Saline (Pres. free 10 ML Vial (11:42)
--- NOTE | 2024-07-24 11:59 | PCM.OPRPT ---
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 Risks and benefits of the procedure were explained. The patient understood and agreed to proceed. Informed consent was obtained. IV inserted per routine protocol. The patient was taken to the operating room and placed in the prone position with a pillow positioned underneath the abdomen. The lower back and tailbone area was prepped and draped in a sterile fashion using iodine x3. Under fluoroscopy guidance on a lateral view, the caudal space was identified. The skin and subcutaneous tissue was anesthetized with approximately 3 mL of 1% lidocaine using a 25-gauge regular needle. Under direct visualization with fluoroscopy, using a 22-gauge 3-1/2-inch spinal needle, the needle was advanced via the skin through the sacral hiatus. The tip of the needle was passed through the sacrococcygeal ligament and advanced to approximately S4 area. After negative aspiration of blood or CSF, a total of 3 mL of contrast was injected to confirm correct placement of the needle as well as cephalad spread. The spread was followed to approximately L5 area. After confirmation on AP as well as lateral view and repeated negative aspiration, a total of 15 mL of preservative-free 0.125% Marcaine with 80 mg of Depo-Medrol was injected easily. The needle was then removed intact. The patient experienced no sign or symptoms of intrathecal or intravascular injection. The patient experienced no paresthesia. The procedure was completed without any apparent difficulty or any complications. The patient appeared to tolerate it well. ASSESSMENT AND PLAN: This is a 53-year-old female with lumbosacral radiculopathy, lumbosacral degenerative disc disease, lumbosacral spinal stenosis status post diagnostic/therapeutic caudal epidural steroid injection under fluoroscopic guidance, patient will continue her current medications, patient will follow in approximately 2 weeks for reevaluation. Surgical Findings: 0 Complications Complications: No Admit VTE Documentation VTE Present on Admission: No VTE Mechan Device Prophylaxis: None VTE Pharm Prophylaxis ordered?: No
--- NOTE | 2024-07-24 12:09 | PCM.POST.ANE ---
Anesthesia: Postop Eval I Current Vital Signs Temperature: 97 F Pulse Rate: 61 Blood Pressure: 143/95 Respiratory Rate: 16 Pulse Ox: 99 Oxygen Delivery Method: Room Air Assessment Airway patent: Yes Spontaneous unlabored respirations: Yes Mental status: Awake and Calm nausea: No Vomiting: No Anesthesia Complication: No Fluid Hydration Crystalloid volume administer (ml): 200 Total IV fluid infused: 200 Progress Note Anesthesia document: Postop Eval 1 completed: Yes
--- NOTE | 2024-07-24 12:34 | POSTOPAN2_ITS ---
Anesthesia Postop Eval I Sum Postop Eval Completion status Anesthesia document: Postop Eval 1 completed: Yes Anesthesia Postop Eval I Summary Anesthesia Postop Eval I Summary: Anesthesia Postop Eval I: Assessment Summary Airway patent Yes 07/24/24 12:10 PROFESSOR [email or web address] Spontaneous unlabored Yes 07/24/24 12:10 PROFESSOR [email or web address] respirations Mental status Awake,Calm 07/24/24 12:10 PROFESSOR [email or web address] nausea No 07/24/24 12:10 PROFESSOR [email or web address] Vomiting No 07/24/24 12:10 PROFESSOR OF [email or web address] Anesthesia Postop Eval I: Fluid Summary Crystalloid volume administer 200 07/24/24 12:10 PROFESSOR [email or web address] (ml) Colloids volume administered ( ml) Blood Product volume administered (ml) Total IV fluid infused 200 07/24/24 12:10 PROFESSOR [email or web address] Anesthesia Postop Eval I: Summary Notes Anesthesia Complication No 07/24/24 12:10 PROFESSOR [email or web address] Anesthesia Complication Comment: Post-operative progress note Anesthesia: Postop Eval II Evaluation Mental status: Awake Pain Level: 2 nausea: No Vomiting: No
--- NOTE | 2024-07-24 12:34 | PCM.POSTANE2 ---
Anesthesia Postop Eval I Sum Postop Eval Completion status Anesthesia document: Postop Eval 1 completed: Yes Anesthesia Postop Eval I Summary Anesthesia Postop Eval I Summary: Anesthesia Postop Eval I: Assessment Summary Airway patent Yes 07/24/24 12:10 [email or web address] Spontaneous unlabored Yes 07/24/24 12:10 [email or web address] respirations Mental status Awake,Calm 07/24/24 12:10 [email or web address] nausea No 07/24/24 12:10 [email or web address] Vomiting No 07/24/24 12:10 [email or web address] Anesthesia Postop Eval I: Fluid Summary Crystalloid volume administer 200 07/24/24 12:10 [email or web address] (ml) Colloids volume administered ( ml) Blood Product volume administered (ml) Total IV fluid infused 200 07/24/24 12:10 [email or web address] Anesthesia Postop Eval I: Summary Notes Anesthesia Complication No 07/24/24 12:10 [email or web address] Anesthesia Complication Comment: Post-operative progress note Anesthesia: Postop Eval II Evaluation Mental status: Awake Pain Level: 2 nausea: No Vomiting: No
== END 2024-07-24 12:23 | disposition home or self-care (01) ==
LOC: SDC 10:35 → AC 10:36
PROVIDERS: PCP Nurse Practitioner Family; Referring Provider Anesthesiology Pain Medicine; Visit Provider Anesthesiology Pain Medicine
PROC: 3E0S3BZ Introduction of Anesthetic Agent into Epidural Space, Percutaneous Approach (ICD-10-PCS; CPT 62282; principal; 2024-07-24 11:50)
DX: M51.17 Intervertebral disc disorders with radiculopathy, lumbosacral region (principal); M48.07 Spinal stenosis, lumbosacral region; I10 Essential (primary) hypertension; K21.9 Gastro-esophageal reflux disease without esophagitis; M79.7 Fibromyalgia; F32.A Depression, unspecified; F41.9 Anxiety disorder, unspecified; Z79.899 Other long term (current) drug therapy
CPT/HCPCS: 62323; 64490; 77003

== ENCOUNTER → 2024-08-11 | Outpatient (CLI) | payer OTHER, SELFPAY ==
--- NOTE | 2024-08-11 14:26 | RAD_ITS ---
PROCEDURE: SHOULDER MIN 2 VIEWS 08/11/2024 REASON FOR EXAM: RIGHT SHOULDER PAIN TECHNIQUE: Four view right shoulder series. COMPARISON: None. RAD/Shoulder min 2 Views IMPRESSION: No significant arthritic process or joint space narrowing is seen. Satisfactory osseous alignment is present. No fracture, dislocation, or other significant osseous or joint space abnormali ty is seen. Reading Location: [id number]
== END | disposition home or self-care (01) ==
LOC: MTRAD 14:25
PROVIDERS: PCP Nurse Practitioner Family; Referring Provider Anesthesiology Pain Medicine; Visit Provider Anesthesiology Pain Medicine
DX: M25.511 Pain in right shoulder (principal)
CPT/HCPCS: 73030

== ENCOUNTER 2024-08-15 10:00 | Outpatient (RCR) | payer OTHER, SELFPAY ==
--- NOTE | 2024-07-18 13:47 | HP.PTEVAL_ITS ---
Patient's Visit Information Visit Information Visit Information: TINY MCCONNELL is a 53 year old F referred to Physical Therapy by Dr. Abram Cameron MD with a diagnosis of Radic and DDD Lumbo-sacral. Date of Evaluation: 07/18/24 Physical Therapist: THANIA Chung Visit Plan Frequency: 2x /Week Duration: 2 Months Plan: 2X/ week for 8 weeks for Pelvic tilt and neutral spine core stability, pos ture and body mechanics with HEP HEP: Supine Pelvic tilt and Pelvic tilt with marching Subjective Subjective: She sees Dr Duncan for about 10-11 years now for neck pain and now she is having back pain. He ordered an x-ray and PT and then will do MRI. X- ray showed She gets an injection next week for her LB. He normally treats c- spine with injections. Her back pain started in the fall she would feel pain on the L side and into the butt cheek with weeding. Over the winter she was achy but not consistent. At night she would feel the pain across her back and across her hips and R side is now worse. Pain Back pain: Pain Intensity (Out of 10): 2 Pain Intensity Range: 7 Objective Objective: R handed: Trunk AROM: flexion 75%, Ext 50%, SB B 50% with increase pain, Rot B 50% Gait: walks with normal gait pattern and able to to walk on heels and toes without issue LE MMT: R hip flex 12.9 and L 14.4 R knee ext 19.5 and L 15.9 R knee flex 8.5 and L 11.1 Patellar DTR 2+/3 B Seated Trunk flexion with ball only felt a little stretch Increase tenderness along B SI joints and L paraspinals but also has fibro LTR good ROM with a little stretch at end range Good HS and piriformis length Pt struggled to obtain PT but able to achieve it with concentration Press up X 10 no real change in pain other than a little increase pain across LB Balance/Special Test Scores Oswestry Low Back Score: 18 Goals Goal 1:: I HEP Goal Time Frame: 6-8 Weeks Goal 2:: Decrease freq and intensity of back pain by 50% Goal Time Frame: 6-8 Weeks Goal 3:: 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 Goal Time Frame: 6-8 Weeks Rehabilitation Potential Rehabilitation Potential: Good Anticipated Interventions Patient/Client Instruction: Educate patient on: Condition and Plan of Care For the Purpose of:: To decrease pain, To increase ROM, To improve nutrient delivery to tissue, To improve muscle performance and motor function, To improve ability to perform ADL's, To increase tolerance to activity/condition/position, To improve performance and independence with ADL's, To decrease level of supervision to perform tasks, To improve ability of physical actions for home/community/work/leisure, To improve gait and locomotor functions, To improve health of tissue, To decrease soft tissue restriction, To increase flexibility/ROM, To improve balance and To improve safety with gait Therapeutic Exercise to Include: Strength training, Postural training, Flexibilty training, Gait and locomotor training, Neuromotor development, Active ROM, Dynamic Lumbar Stabilization and Stefani Exercises For the Purpose of:: To decrease pain, To increase ROM, To improve nutrient delivery to tissue, To improve muscle performance and motor function, To improve ability to perform ADL's, To increase tolerance to activity/condition/position, To improve performance and independence with ADL's, To decrease level of supervision to perform tasks, To improve ability of physical actions for capo e/community/work/leisure, To improve gait and locomotor functions, To improve health of tissue, To decrease soft tissue restriction and To increase flexibility/ROM Manual Therapy Techniques to Include: Passive ROM and Soft tissue mobilization For the Purpose of:: To increase ROM, To improve nutrient delivery to tissue and To improve muscle performance and motor function Thermo therapy (hot pack): Yes For the Purpose of:: To decrease pain, To increase ROM and To improve nutrient delivery to tissue Text: Thank you for the opportunity to evaluate your patient. For Medicare and Medicare HMO plans, please review the plan of care and approve it. It will need to be FAXED BACK to us at [phone] for Medicare purposes. For Medicare only, by signing this I certify the plan of care. Please let me know if there are questions or concerns regarding this plan of care. Physician Signature: Date:
--- NOTE | 2024-08-15 11:00 | HP.PTDCSUM ---
Discharge Summary D/C summary: It has been my pleasure to treat TINY MCCONNELL referred by Dr. Abram Cameron MD, with the diagnosis of Radic and DDD Lumbo-sacral for a total of 9 visit(s). Discharge Date: 08/15/24 Please see the following information for a summary of their discharge status. Subjective Subjective: Her pain in her butt cheek now and twice now she has had it travel down her leg to her foot. Her LBP is better since the caudal injection. The next step is an MRI. She does her exercises at home on days she is not in therapy. The marching triggers her LB. She sees the Dr in a week. Pain Back pain: Pain Intensity (Out of 10): 2 L glute: Pain Intensity (Out of 10): 2 Overall Improvement % Improvement: 40 Objective Objective/Function: Pt had increase L buttock pain lifting her leg into supine L ankle over the R knee but was able to stretch once got into that position. Pt had increase back pain with Prone to KELLY. Goals Goal 1:: I HEP Goal Progress: Goal Met Goal 2:: Decrease freq and intensity of back pain by 50% Goal Progress: Goal Met Goal 3:: 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 Goal Progress: Not Progressing Plan Plan: DC PT back to D/C Information Discharge Comments: DC PT d/c sentence: If there are questions or concerns regarding this patient's physical therapy, please feel free to call me at [phone]. Thank you for the referral of this patient. Sincerely, Debbie Palmer, MPT Balance/Gait/Functional tests Balance/Special Test Scores Oswestry Low Back Score: 20 Improvement % Improvement: 40
== END 2024-08-15 19:00 | disposition home or self-care (01) ==
LOC: PT 10:00
PROVIDERS: PCP Nurse Practitioner Family; Referring Provider Anesthesiology Pain Medicine; Visit Provider Anesthesiology Pain Medicine
DX: M54.17 Radiculopathy, lumbosacral region (principal); M51.379 Other intervertebral disc degeneration, lumbosacral region without mention of lumbar back pain or lower extremity pain
CPT/HCPCS: 97110; 97161; 97530

== ENCOUNTER → 2024-08-19 | Outpatient (CLI) | payer OTHER, SELFPAY ==
--- OUTSIDE RECORDS SUMMARY | 2024-08-19 07:58 | XMS RPT_ITS | CCD ---
Author Organization [facility] Care Team Providers Care Freel[address] Stenographer Name Role Phone Stas DYNAMICS AX TECHNICAL ARCHITECT-C, Emilee Primary Care Provider Rakesh DYER, Dr. Valverde Attending Provider Dr. Abram Cameron MD Referring Provider Asha Morton Attending Provider Unavailable Stas DYNAMICS AX TECHNICAL ARCHITECT-C, Emilee Referring Provider Dr. Tico Hernandez DO Attending Provider Dr. Tico Hernandez DO Other Provider [phone] Stas DYNAMICS AX TECHNICAL ARCHITECT-C, Emilee Primary Care Provider [phone] Dr. Abram Cameron MD Attending Provider [phone] Dr. Abram Cameron MD Referring Provider Stas, Emilee Primary Care Unavailable Stas, Emilee Referring Unavailable Stas, Emilee Attending Unavailable Stas, Emilee Primary Care Unavailable Stas, Emilee Referring Unavailable Stas, Emilee Attending Unavailable [place], Gladys Referring Unavailable Carlos, Gladys Attending Unavailable Stas, Emilee Primary Care Unavailable Stas, Emilee Primary Care Unavailable Asha Morton Attending Unavailable Stas, Emilee Primary Care Unavailable Stas, Emilee Referring Unavailable Tico Hernandez Attending Unavailable Tico Hernandez Consulting Unavailable Stas, Emilee Primary Care Unavailable Stas, Emilee Referring Unavailable Stas, Emilee Attending Unavailable Stas, Emilee Primary Care Unavailable Abram Cameron Attending Unavailable Abram Cameron Referring Unavailable Stas, Emilee Primary Care Unavailable Abram Cameron Referring Unavailable Abram Cameron Attending Unavailable Stas, Emilee Primary Care Unavailable Abram Cameron Attending Unavailable Abram Cameron Referring Unavailable Stas, Emilee Primary Care Unavailable Abram Cameron Referring Unavailable Abram Cameron Attending Unavailable Stas, Emilee Primary Care Unavailable Stas, Emilee Referring Unavailable Friend, Tico Attending Unavailable Stas, Emilee Primary Care Unavailable Stas, Emilee Referring Unavailable Stas, Emilee Attending Unavailable Stas, Emilee Primary Care Unavailable Abram Cameron Referring Unavailable Abram Cameron Attending Unavailable Stas, Emilee Primary Care Unavailable Abram Cameron Referring Unavailable Abram Cameron Attending Unavailable Stas, Emilee Primary Care Unavailable Rakesh, Abram Referring Unavailable Abram Cameron Attending Unavailable Medications Current Medications Medication Drug Class(es) Dates Sig (Normalized) Sig (Original) acetaminophen 250 mg / aspirin 250 mg / caffeine 65 mg oral tablet (7 sources) Platelet Aggregation Inhibitor, Nonsteroidal Anti-inflammatory Drug, Central Nervous System Stimulant, Methylxanthine Start: 04-03-2020 Aspirin-Acetamin ophen-Caffeine (Excedrin Migraine) 250-250-65 mg tablet Active 1 {tbl} PO NEEDED April 03, 2020 1:00am Start: 04-03-2020 take 1 tablet by jessica th once Myuejut-Imztqpmpqykxp-Vgsptkov (Excedrin Migraine) 250-250-65 mg tablet Active 1 TABLET PO ONCE April 03, 2020 1:00am acyclovir 400 mg oral tablet (5 sources) Herpesvirus Nucleoside Analog DNA Polymerase Inhibitor, Herpes Simplex Virus Nucleoside Analog DNA Polymerase Inhibitor, Herpes Zoster Virus Nucleoside Analog DNA Polymerase Inhibitor Start: 02-21-2024 take 1 tablet by mouth three times daily as needed Acyclovir 400 mg tablet Active 400 mg PO THREE TIMES A DAY as needed for cold sore February 21, 2024 1:00am 24 hr buPROPion hydrochloride 150 mg extended release oral tablet (17 sources) Aminoketone Start: 02-21-2024 Bupropion Hcl 150 mg tablet extended release 24 hr Active 450 mg PO AT BEDTIME February 21, 2024 10:48am Start: 08-17-2023 End: 02-21-2024 Bupropion Hcl 150 mg tablet extended release 24 hr Discontinued 300 mg PO DAILY August 17, 2023 12:00am February 21, 2024 10:53am Start: 11-10-2018 End: 08-17-2023 take 1 tablet by mouth once daily Bupropion Hcl (Wellbutrin Sr) 100 mg tablet sustained-release 12 hr Discontinued 150 mg PO DAILY November 10, 2018 12:00am August 17, 2023 12:25pm Start: 11-10-2018 take 1 tablet by jessica th once daily Bupropion Hcl (Wellbutrin Sr) 100 mg tablet sustained-release 12 hr Active 100 MG PO DAILY November 10, 2018 12:00am cholecalciferol 0.05 mg oral capsule (12 sources) Vitamin D Start: 02-21-2024 take 1 capsule by mouth once daily Cholecalciferol (Vitamin D3) 50 mcg (2,000 unit) capsule Active 5000 U PO DAILY February 21, 2024 10:51am Start: 11-10-2018 End: 02-21-2024 take 1 capsule by mouth once daily Cholecalciferol (Vitamin D3) 2,000 unit capsule Discontinued 2000 U PO DAILY November 10, 2018 12:00am February 21, 2024 10:53am diphenhydrAMINE hydrochloride 25 mg oral capsule (5 sources) Histamine-1 Receptor Antagonist Start: 09-22-2022 take 1 capsule by mouth at bedtime as needed Diphenhydramine Hcl (Benadryl) 25 mg capsule Active 25 mg PO AT BEDTIME as needed for allergy symptoms September 22, 2022 12:00am ferrous sulfate 325 mg oral tablet (12 sources) Start: 08-17-2023 take 1 tablet by mouth once daily Ferrous Sulfate (Feosol) 325 mg (65 mg iron) tablet Active 325 mg PO DAILY August 17, 2023 12:00am Start: 11-10-2018 End: 04-03-2020 take 1 tablet by mouth once daily Ferrous Sulfate (Iron) 325 mg (65 mg iron) tablet Discontinued 325 mg PO DAILY November 10, 2018 12:00am April 03, 2020 12:23pm ibuprofen 200 mg oral capsule (7 sources) Nonsteroidal Anti-inflammatory Drug Start: 04-03-2020 take 2 capsules by mouth every six hours as needed for pain Ibuprofen 200 mg capsule Active 400 mg PO EVERY 6 HOURS as needed for pain April 03, 2020 1:00am Start: 04-03-2020 take 200 mg by mouth every six hours Ibuprofen Active 200 MG PO EVERY 6 HOURS April 03, 2020 1:00am lisinopril 10 mg oral tablet (5 sources) Angiotensin Converting Enzyme Inhibitor Start: 09-22-2022 take 1 tablet by mouth at bedtime Lisinopril 10 mg tablet Active 10 mg PO AT BEDTIME September 22, 2022 12:00am [place] 6-Rxb-Zhm-Fish Oil (Fish Oil) 1,200 (144-216) mg capsule (5 sources) Start: 02-21-2024 [place] 1-Qis-Brt-Fish Oil (Fish Oil) 1,200 (144-216) mg capsule Active 1 NMA PO DAILY February 21, 2024 1:00am omeprazole 20 mg delayed release oral capsule (5 sources) Proton Pump Inhibitor Start: 02-21-2024 take 1 capsule by mouth at bedtime as needed for gastroesophageal reflux disease Omeprazole 20 mg capsule,delayed release(DR/EC) Active 20 mg PO AT BEDTIME as needed for gerd February 21, 2024 1:00am 0.5 ml SUMAtriptan 12 mg/ml cartridge (5 sources) Serotonin-1b and Serotonin-1d Receptor Agonist Start: 02-21-2024 Sumatriptan Succinate 6 mg/0.5 mL cartridge Active 6 mg SC every 1 to 4 hours as needed for migraine headache February 21, 2024 1:00am do not exceed 2 doses in a 24 hour period tiZANidine 2 mg oral capsule (12 sources) Central alpha-2 Adrenergic Agonist Start: 11-10-2018 End: 02-21-2024 Tizanidine (Zanaflex) 2 mg capsule Active 4 mg PO Q8H as needed for muscle spasticity February 21, 2024 10:51am traMADol hydrochloride 50 mg oral tablet (12 sources) Opioid Agonist Start: 02-21-2024 take 1 tablet by mouth every eight hours as needed for pain Tramadol 50 mg tablet Active 50 mg PO Q8H as needed for pain February 21, 2024 10:50am Start: 11-10-2018 End: 02-21-2024 take 1 tablet by mouth once daily Tramadol 50 mg tablet Discontinued 50 mg PO DAILY November 10, 2018 12:00am February 21, 2024 10:53am zolpidem tartrate 5 mg oral tablet (7 sources) gamma-Aminobutyric Acid-ergic Agonist Start: 11-10-2018 take 2 tablets by mouth at bedtime Zolpidem (Ambien) 5 mg tablet Active 10 mg PO AT BEDTIME November 10, 2018 12:00am Start: 11-10-2018 take 1 tablet by mouth at bedt becky Zolpidem (Ambien) 5 mg tablet Active 5 MG PO AT BEDTIME November 10, 2018 12:00am Completed/Discontinued Medications Medication Drug Class(es) Dates Sig (Normalized) Sig (Original) acetaminophen 325 mg oral capsule (7 sources) Start: 04-03-2020 End: 08-17-2023 take 1 capsule by mouth once as needed Acetaminophen (Tylenol) 325 mg capsule Discontinued 325 mg PO ONCE as needed April 03, 2020 1:00am August 17, 2023 12:13pm diclofenac sodium 75 mg delayed release oral tablet (7 sources) Nonsteroidal Anti-inflammatory Drug Start: 04-03-2020 End: 02-21-2024 Diclofenac Sodium 75 mg tablet,delayed release (DR/EC) Discontinued 50 mg PO TWICE A DAY as needed for pain April 03, 2020 1:00am February 21, 2024 9:06am Start: 04-03-2020 take 50 mg by mouth twice bubba y Diclofenac Sodium Active 50 MG PO TWICE A DAY April 03, 2020 1:00am naproxen sodium 220 mg oral capsule (7 sources) Nonsteroidal Anti-inflammatory Drug Start: 11-10-2018 End: 09-22-2022 take 1 capsule by mouth twice daily Naproxen Sodium (Aleve) 220 mg capsule Discontinued 220 mg PO TWICE A DAY November 10, 2018 12:00am September 22, 2022 1:02pm predniSONE 10 mg oral tablet (12 sources) Start: 09-22-2022 End: 08-17-2023 take 4 tablets by mouth once daily, then take 3 tablets by mouth once daily, then take 2 tablets by mouth once daily, then take 1 tablet by mouth once daily Prednisone 10 mg tablet Discontinued 10 mg PO As Directed September 22, 2022 12:00am August 17, 2023 12:15pm 4 tablets daily x3 days, then 3 tablets daily x3 days, then 2 tablets daily x3 days, then 1 tablet daily x3 days Start: 11-10-2018 End: 04-03-2020 take 3 tablets by mouth once daily, then take 2 tablets by mouth once daily, then take 1 tablet by mouth once daily Prednisone 20 mg tablet Discontinued 20 mg PO DAILY November 10, 2018 12:00am April 03, 2020 12:23pm 3 tablets daily for 3 days, then 2 tablets daily for 3 days, then 1 tablet daily for 3 days sertraline 25 mg oral tablet (7 sources) Serotonin Reuptake Inhibitor Start: 11-10-2018 End: 09-22-2022 take 1 tablet by mouth once daily Sertraline (Zoloft) 25 mg tablet Discontinued 25 mg PO DAILY November 10, 2018 12:00am September 22, 2022 1:02pm Problems Active Problems Problem Classification Problem Date Documented Da te Episodic/Chronic Allergic reactions (5 sources) Contact dermatitis due to plants; Translations: [Unspecified contact dermatitis due to plants, except food] 09-22-2022 Episodic Essential hypertension (2 sources) Essential (primary) hypertension; Translations: [Essential (primary) hypertension] Onset: 10-07-2023 Chronic Other non-traumatic joint disorders (1 source) Pain in right shoulder; Translations: [Pain in right shoulder] Onset: 08-16-2024 Episodic Other nutritional; endocrine; and metabolic disorders (2 sources) Morbid (severe) obesity due to excess calories; Translations: [Morbid (severe) obesity due to excess calories] Onset: 10-07-2023 Chronic Spondylosis; intervertebral disc disorders; other back problems (1 source) Spondylosis without myelopathy or radiculopathy, cervical region; Translations: [Spondylosis without myelopathy or radiculopathy, cervical region] Onset: 06-02-2024 Chronic Spondylosis; intervertebral disc disorders; other back problems (3 sources) Radiculopathy, lumbar region; Translations: [Radiculopathy, lumbosacral region] Onset: 07-29-2024 Episodic Past or Other Problems Problem Classification Problem Date Documented Da te Episodic/Chronic Administrative/social admission (2 sources) Dietary counseling and surveillance; Translations: [Dietary counseling and surveillance] Onset: 10-07-2023 Episodic Other screening for suspected conditions (not mental disorders or infectious disease) (13 sources) Patient encounter status; Translations: [Encounter for screening for malignant neoplasm of colon] Onset: 09-08-2023 02-21-2024 Episodic Unclassified (7 sources) h/o ulnar nerve release 09-24-2021 Results Test Name Value Interpretation Reference Range Facility PT D/C Summary (1)on 025 PT D/C Summary (1) [facility] [address] [place] [address] / REHABILITATION SERVICES DISCHARGE SUMMARY MR#: [id number] Acct: [id number] Name: TINY MCCONNELL Rep #: [id number] : 1970 53 From: Debbie MONTEIRO Referring Dr.: Dr. Abram Cameron MD Status: REG RCR Insurance: [employer] SELF PAY INSURANCE Discharge Summary D/C summary: It has been my pleasure to treat TINY MCCONNELL referred by Dr. Abram Cameron MD, with the diagnosis of Radic and DDD Lumbo-sacral for a total of 9 visit(s). Discharge Date: 08/15/24 Please see the following information for a summary of their discharge status. Subjective Subjective: Her pain in her butt cheek now and twice now she has had it travel down her leg to her foot. Her LBP is better since the caudal injection. The next step is an MRI. She does her exercises at home on days she is not in therapy. The marching triggers her LB. She sees the Dr in a week. Pain Back pain: Pain Intensity (Out of 10): 2 L glute: Pain Intensity (Out of 10): 2 Overall Improvement % Improvement: 40 Objective Objective/Function: Pt had increase L buttock pain lifting her leg into supine L ankle over the R knee but was able to stretch once got into that position. Pt had increase back pain with Prone to KELLY. 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 Palomo/Farzad Information Discharge Comments: DC PT d/c sentence: If there are questions or concerns regarding this patient's physical therapy, please feel free to call me at [phone]. Thank you for the referral of this patient. Sincerely, THANIA Chung Balance/Gait/Functi onal tests Balance/Special Test Scores Oswestry Low Back Score: 20 Improvement % Improvement: 40 08/15/24 1100 CC: TAY-Farzad Mcclelland; Dr. Abram Cameron MD Signed [facility] Shoulder min 2 Viewson 08-11 Shoulder min 2 Views [facility] [address] [place], [place] [address] Shoulder min 2 Views MR#: [id number] Acct: [id number] Name: TINY MCCONNELL JO Rep #: [id number] : 1970 F 53 From: Anastacio Palomo PCP: BARRY Dobson Status: REG CLI Study: Shoulder min 2 Views Date of Exam: 08/11/24 Exam# [id number] Ordering Dr: Abram Cameron MD PROCEDURE: SHOULDER MIN 2 VIEWS 08/11/2024 REASON FOR EXAM: RIGHT SHOULDER PAIN TECHNIQUE: Four view right shoulder series. COMPARISON: None. RAD/Shoulder min 2 Views IMPRESSION: No significant arthritic process or joint space narrowing is seen. Satisfactory osseous alignment is present. No fracture, dislocation, or other significant osseous or joint space abnormality is seen. Reading Location: [address] CC: DYNAMICS AX TECHNICAL ARCHITECT-Farzad Mcclelland; Dr. Abram Cameron MD Grapple Operator: Signed [facility] Fluor Guidance for Spine Inj on 07-24-2024 Fluor Guidance for Spine Inj [facility] [address] [place] [address] Fluor Guidance for Spine Inj MR#: [id number] Acct: [id number] Name: TINY MCCONNELL JO Rep #: [id number] : 1970 F 53 From: Quentin diego MD PCP: BARRY Dobson Status: DEP [facility] Study: Fluor Guidance for Spine Inj Date of Exam: Exam# [id number] Ordering Dr: Abram Cameron MD PROCEDURE: FLUOR GUIDANCE FOR SPINE INJ 07/24/2024 REASON FOR EXAM: BLOCK, CAUDAL TECHNIQUE: Fluoroscopic services provided for caudal block. 2.3 seconds of fluoroscopy. 1.49 mGy. 1 image was obtained. COMPARISON: None FINDINGS: Intraoperative imaging provided for caudal block. RAD/Fluor Guidance for Spine Inj IMPRESSION: Intraoperative imaging provided for caudal block. Reading Location: [place] [address] CC: DYNAMICS AX TECHNICAL ARCHITECT-C Emilee Mcclelland; Dr. Abram Cameron MD Grapple Operator: Signed [facility] MR/POSTOP.ANE 07-24-2024 MR/POSTOP.[facility] Medical Records Department [address] [place] [address] Anesthesia Postop Eval I 07/24/24 1209 MR#: [id number] Acct: [id number] Name: TINY MCCONNELL JO Rep #: [id number] : 1970 53 From: Pradeep Kent CRNA PCP: BARRY Dobson Status:REG [facility] Y Race: C Location: [place] [address] Anesthesia: Postop Eval I Current Vital Signs Temperature: 97 F Pulse Rate: 61 Blood Pressure: 143/95 Respiratory Rate: 16 Pulse Ox: 99 Oxygen Delivery Method: Room Air Assessment Airway patent: Yes Spontaneous unlabored respirations: Yes Mental status: Awake and Calm nausea: No Vomiting: No Anesthesia Complication: No Fluid Hydration Crystalloid volume administer (ml): 200 Total IV fluid infused: 200 Progress Note Anesthesia document: Postop Eval 1 completed: Yes 07/24/24 1210 Date Pradeep Kent CRNA Cosigner Signature: Date CC: Signed [facility] [id number] 07-24-2024 MR/POSTOPA[address] Medical Records Department [address] [place] [address] Anesthesia Postop Eval II 07/24/24 1234 MR#: [id number] Acct: [id number] Name: TINY MCCONNELL Rep #: [id number] : 1970 53 From: Cameron Roman MD PCP: BARRY Dobson Status:DEP [facility] Y Race: C Location: [facility] Anesthesia Postop Eval I Sum Postop Eval Completion status Anesthesia document: Postop Eval 1 completed: Yes Anesthesia Postop Eval I Summary Anesthesia Postop Eval I Summary: Anesthesia Postop Eval I: Assessment Summary Airway patent Yes 07/24/24 12:10 DERMATOLOGY PROCEDURAL [email or web address] Spontaneous unlabored Yes 07/24/24 12:10 DERMATOLOGY PROCEDURAL [email or web address] respirations Mental status Awake,Calm 07/24/24 12:10 DERMATOLOGY PROCEDURAL [email or web address].[email or web address] nausea No 07/24/24 12:10 DERMATOLOGY PROCEDURAL [email or web address].[email or web address] Vomiting No 07/24/24 12:10 DERMATOLOGY PROCEDURAL PHYSICIAN.[email or web address] Anesthesia Postop Eval I: Fluid Summary Crystalloid volume administer 200 07/24/24 12:10 DERMATOLOGY PROCEDURAL PHYSICIAN.[email or web address] (ml) Colloids volume administered ( ml) Blood Product volume administered (ml) Total IV fluid infused 200 07/24/24 12:10 DERMATOLOGY PROCEDURAL PHYSICIAN.[email or web address] Anesthesia Postop Eval I: Summary Notes Anesthesia Complication No 07/24/24 12:10 DERMATOLOGY PROCEDURAL PHYSICIAN.[email or web address] Anesthesia Complication Comment: Post-operative progress note Anesthesia: Postop Eval II Evaluation Mental status: Awake Pain Level: 2 nausea: No Vomiting: No 07/24/24 1234 Date Cameron Roman MD Cosigner Signature: Date CC: Signed [facility] Operative Reporton 5 Operative Report [facility] Medical Records Department [address] [place] [address] Operative Report 07/24/24 1159 MR#: [id number] Acct: [id number] Name: TINY MCCONNELL Rep #: [id number] : 1970 53 From: Abram Cameron MD PCP: BARRY Dobson Status:REG [facility] Location: [place] [address] Operative Report (Standard) Operative Information Date of Procedure: 07/24/24 Pre-Operative Diagnosis: Lumbosacral radiculopathy, lumbosacral degenerative disc disease, lumbosacral spinal stenosis Post-Operative Diagnosis: Lumbosacral radiculopathy, lumbosacral degenerative disc disease, lumbosacral spinal stenosis Surgery/Procedure Performed: Diagnostic/therapeu tic caudal epidural steroid injection under fluoroscopic guidance laboratory scientist: No Type of Anesthesia: Local MAC RN Documented Start/Stop Times: Operation Date: 07/24/24 11:55 Case Time Into Pre-Op 07/24/24 10:38 Anesthesia Start 07/24/24 11:35 Into Room 07/24/24 11:35 Procedure Start 07/24/24 11:38 Procedure End 07/24/24 11:43 Anesthesia End 07/24/24 11:46 Out of Room 07/24/24 11:46 Procedure Start Time: 11:59 Procedure Stop Time: 12:00 Select all DRAINS/GRAFTS/IMPLA NTS that apply: None Estimated Blood Loss: 0 Specimen collected: No Description of surgery: History and physical of today was reviewed. Risks and benefits of the procedure were explained. The patient understood and agreed to proceed. Informed consent was obtained. IV inserted per routine protocol. The patient was taken to the operating room and placed in the prone position with a pillow positioned underneath the abdomen. The lower back and tailbone area was prepped and draped in a sterile fashion using iodine x3. Under fluoroscopy guidance on a lateral view, the caudal space was identified. The skin and subcutaneous tissue was anesthetized with approximately 3 mL of 1% lidocaine using a 25-gauge regular needle. Under direct visualization with fluoroscopy, using a 22-gauge 3-1/2-inch spinal needle, the needle was advanced via the skin through the sacral hiatus. The tip of the needle was passed through the sacrococcygeal ligament and advanced to approximately S4 area. After negative aspiration of blood or CSF, a total of 3 mL of contrast was injected to confirm correct placement of the needle as well as cephalad spread. The spread was followed to approximately L5 area. After confirmation on AP as well as lateral view and repeated negative aspiration, a total of 15 mL of preservative-free 0.125% Marcaine with 80 mg of Depo-Medrol was injected easily. The needle was then removed intact. The patient experienced no sign or symptoms of intrathecal or intravascular injection. The patient experienced no paresthesia. The procedure was completed without any apparent difficulty or any complications. The patient appeared to tolerate it well. ASSESSMENT AND PLAN: This is a 53-year-old female with lumbosacral radiculopathy, lumbosacral degenerative disc disease, lumbosacral spinal stenosis status post diagnostic/therapeu tic caudal epidural steroid injection under fluoroscopic guidance, patient will continue her current medications, patient will follow in approximately 2 weeks for reevaluation. Surgical Findings: 0 Complications Complications: No Admit VTE Documentation VTE Present on Admission: No VTE Mechan Device Prophylaxis: None VTE Pharm Prophylaxis ordered?: No 07/24/24 1200 Cosigner Signature (if applicable): CC: BARRY Mcclelland; Dr. Abram Cameron MD Signed [facility] Inital Evaluation (1) - PTon 07-18-2024 Inital Evaluation (1) - PT [facility] [address] [place] [address] [address] [place] [address] / REHABILITATION SERVICES INITIAL EVALUATION MR#: [id number] Acct: [id number] Name: TINY MCCONNELL Rep #: [id number] : 1970 53 From: Debbie MONTEIRO Referring Dr.: Dr. Abram Camerno MD Status: REG RCR Insurance: [employer] SELF PAY INSURANCE Patient's Visit Information Visit Information Visit Information: TINY MCCONNELL is a 53 year old F referred to Physical Therapy by Dr. Abram Cameron MD with a diagnosis of Radic and DDD Lumbo-sacral. Date of Evaluation: 07/18/24 Physical Therapist: THANIA Chung Visit Plan Frequency: 2x /Week Duration: 2 Months Plan: 2X/ week for 8 weeks for Pelvic tilt and neutral spine core stability, posture and body mechanics with HEP HEP: Supine Pelvic tilt and Pelvic tilt with marching Subjective Subjective: She sees Dr Duncan for about 10-11 years now for neck pain and now she is having back pain. He ordered an x-ray and PT and then will do MRI. X-ray showed She gets an injection next week for her LB. He normally treats c-spine with injections. Her back pain started in the fall she would feel pain on the L side and into the butt cheek with weeding. Over the winter she was achy but not consistent. At night she would feel the pain across her back and across her hips and R side is now worse. Pain Back pain: Pain Intensity (Out of 10): 2 Pain Intensity Range: 7 Objective Objective: R handed: Trunk AROM: flexion 75%, Ext 50%, SB B 50% with increase pain, Rot B 50% Gait: walks with normal gait pattern and able to to walk on heels and toes without issue LE MMT: R hip flex 12.9 and L 14.4 R knee ext 19.5 and L 15.9 R knee flex 8.5 and L 11.1 Patellar DTR 2+/3 B Seated Trunk flexion with ball only felt a little stretch Increase tenderness along B SI joints and L paraspinals but also has fibro LTR good ROM with a little stretch at end range Good HS and piriformis length Pt struggled to obtain PT but able to achieve it with concentration Press up X 10 no real change in pain other than a little increase pain across LB Balance/Special Test Scores Oswestry Low Back Score: 18 Goals Goal 1:: I HEP Goal Time Frame: 6-8 Weeks Goal 2:: Decrease freq and intensity of back pain by 50% Goal Time Frame: 6-8 Weeks Goal 3:: 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 Goal Time Frame: 6-8 Weeks Rehabilitation Potential Rehabilitation Potential: Good Anticipated Interventions Patient/Client Instruction: Educate patient on: Condition and Plan of Care For the Purpose of:: To decrease pain, To increase ROM, To improve nutrient delivery to tissue, To improve muscle performance and motor function, To improve ability to perform ADL's, To increase tolerance to activity/condition/ position, To improve performance and independence with ADL's, To decrease level of supervision to perform tasks, To improve ability of physical actions for home/community/work /leisure, To improve gait and locomotor functions, To improve health of tissue, To decrease soft tissue restriction, To increase flexibility/ROM, To improve balance and To improve safety with gait Therapeutic Exercise to Include: Strength training, Postural training, Flexibilty training, Gait and locomotor training, Neuromotor development, Active ROM, Dynamic Lumbar Stabilization and Stefani Exercises For the Purpose of:: To decrease pain, To increase ROM, To improve nutrient delivery to tissue, To improve muscle performance and motor function, To improve ability to perform ADL's, To increase tolerance to activity/condition/ position, To improve performance and independence with ADL's, To decrease level of supervision to perform tasks, To improve ability of physical actions for home/community/work /leisure, To improve gait and locomotor functions, To improve health of tissue, To decrease soft tissue restriction and To increase flexibility/ROM Manual Therapy Techniques to Include: Passive ROM and Soft tissue mobilization For the Purpose of:: To increase ROM, To improve nutrient delivery to tissue and To improve muscle performance and motor function Thermo therapy (hot pack): Yes For the Purpose of:: To decrease pain, To increase ROM and To improve nutrient delivery to tissue Text: Thank you for the opportunity to evaluate your patient. For Medicare and Medicare HMO plans, please review the plan of care and approve it. It will need to be FAXED BACK to us at [phone] for Medicare purposes. For Medicare only, by signing this I certify the plan of care. Please let me know if there are questions or concerns regarding this plan of care. Physician Signature: __Date: 07/18/24 1347 CC (more content not included)... [facility] L/S Spine w Bend Min 6 [place]won 06-14-2024 L/S Spine w Bend Min 6 [facility] [address] [place] [address] L/S Spine w Bend Min 6 Vw MR#: [id number] Acct: [id number] Name: TINY MCCONNELL Rep #: [id number] : 1970 F 53 From: Davida Wilcox MD PCP: BARRY Dobson Status: REG CLI Study: L/S Spine w Bend Min 6 Vw Date of Exam: Exam# [id number] Ordering Dr: Abram Cameron MD PROCEDURE: L/S SPINE W BEND MIN 6 VW 06/14/2024 REASON FOR EXAM: PAIN TECHNIQUE: 6 view(s) of the thoracic and lumbar spine. COMPARISON: None available FINDINGS: Curvature: Lordosis of the lumbar spine. Other findings: Vertebral body heights are well preserved. The intervertebral disc heights are well preserved. No overlying soft tissue swelling. Other: None RAD/L/S Spine w Bend Min 6 Vw IMPRESSION: No acute fracture or traumatic malalignment. Reading Location: [facility] CC: DYNAMICS AX TECHNICAL ARCHITECT-C Emilee Mcclelland; Dr. Abram Cameron MD Grapple Operator: Signed [facility] Fluor Guidance for Spine Inj on 05-22-2024 Fluor Guidance for Spine Inj [facility] Imaging Services [address] [place] [address] [id number] Fluor Guidance for Spine Inj MR#: [id number] Acct: [id number] Name: TINY MCCONNELL Rep #: [id number] : 1970 F 53 From: Dashawn Alexis i, DO PCP: BARRY Dobson Status: [facility] Study: Fluor Guidance for Spine Inj Date of Exam: Exam# [id number] Ordering Dr: Abram Cameron MD PROCEDURE: Fluoroscopy use. 05/22/2024 REASON FOR EXAM: BLOCK, CERVICAL FACET RT TECHNIQUE: 4 intraoperative spot images were obtained during right cervical facet block. 9.7 seconds of fluoroscopic time utilized. COMPARISON: None. FINDINGS: 4 intraoperative spot images were obtained during right cervical facet nerve block. A needle projects over several levels of what is presumably the right side of the cervical spine. No laterality marker on the provided images. RAD/Fluor Guidance for Spine Inj IMPRESSION: Documentation of fluoroscopy use during right cervical facet block. Please see the procedure note for details. Reading Location: [facility] CC: DYNAMICS AX TECHNICAL ARCHITECT-Farzad Mcclelland; Dr. Abram Cameron MD Grapple Operator: Signed [facility] MR/POSTOP.ANEon 05-22-2024 MR/POSTOP.[facility] Medical Records Department [address] [place] [address] Anesthesia Postop Eval I 05/22/24 1029 MR#: [id number] Acct: [id number] Name: TINY MCCONNELL Rep #: [id number] : 1970 53 From: Kelly Wiseman CRNA PCP: BARRY Dobson Status:REG SDC Y Race: C Location: [place] [address] Anesthesia: Postop Eval I Current Vital Signs Temperature: 97.6 F Pulse Rate: 68 Blood Pressure: 118/79 Respiratory Rate: 18 Pulse Ox: 99 Oxygen Delivery Method: Room Air Assessment Airway patent: Yes Spontaneous unlabored respirations: Yes Mental status: Awake nausea: No Vomiting: No Anesthesia Complication: No Fluid Hydration Crystalloid volume administer (ml): 10 Total IV fluid infused: 10 Progress Note Anesthesia document: Postop Eval 1 completed: Yes 05/22/24 1030 Date Kelly Wiseman DERMATOLOGY PROCEDURAL PHYSICIAN Cosigner Signature: Date CC: Signed [facility] MR/[id number] 05-22-2024 MR/POSTOPAN2 [facility] Medical Records Department [address] [place] [address] Anesthesia Postop Eval II 05/22/24 1036 MR#: [id number] Acct: [id number] Name: TINY MCCONNELL Rep #: [id number] : 1970 53 From: Sulema Will PCP: BARRY Dobson Status:DEP SDC Y Race: C Location: [facility] Anesthesia Postop Eval I Sum Postop Eval Completion status Anesthesia document: Postop Eval 1 completed: Yes Anesthesia Postop Eval I Summary Anesthesia Postop Eval I Summary: Anesthesia Postop Eval I: Assessment Summary Airway patent Yes 05/22/24 10:30 DERMATOLOGY PROCEDURAL [email or web address].[email or web address] Spontaneous unlabored Yes 05/22/24 10:30 DERMATOLOGY PROCEDURAL PHYSICIAN.LMIL respirations Mental status Awake 05/22/24 10:30 DERMATOLOGY PROCEDURAL PHYSICIAN.LMIL nausea No 05/22/24 10:30 DERMATOLOGY PROCEDURAL PHYSICIAN.LMIL Vomiting No 05/22/24 10:30 DERMATOLOGY PROCEDURAL PHYSICIAN.LMIL Anesthesia Postop Eval I: Fluid Summary Crystalloid volume administer 10 05/22/24 10:30 DERMATOLOGY PROCEDURAL PHYSICIAN.LMIL (ml) Colloids volume administered ( ml) Blood Product volume administered (ml) Total IV fluid infused 10 05/22/24 10:30 DERMATOLOGY PROCEDURAL PHYSICIAN.LMIL Anesthesia Postop Eval I: Summary Notes Anesthesia Complication No 05/22/24 10:30 DERMATOLOGY PROCEDURAL PHYSICIAN.LMIL Anesthesia Complication Comment: Post-operative progress note Anesthesia: Postop Eval II Evaluation Mental status: Awake Pain Level: 3 nausea: No Vomiting: No 05/22/24 1111 Date Sulema Owen Signature: Date CC: Signed [facility] Operative Reporton 5 Operative Report [facility] Medical Records Department [address] [place] [address] Operative Report 05/22/24 1022 MR#: [id number] Acct: [id number] Name: ENEDINAFATMATA Rep #: [id number] : 1970 53 From: Abram Cameron MD PCP: KAVITA DobsonC Status:REG [facility] Location: [place] [address] Operative Report (Standard) Operative Information Date of Procedure: 05/22/24 Pre-Operative Diagnosis: Cervical spondylosis, cervical facet arthropathy, cervical degenerative disc disease Post-Operative Diagnosis: Cervical spondylosis, cervical degenerative disc disease, cervical facet arthropathy Surgery/Procedure Performed: Right-sided cervical facet steroid injection C4-5, C5-6, C6-7 laboratory scientist: No Type of Anesthesia: Local MAC RN Documented Start/Stop Times: Operation Date: 05/22/24 10:00 Case Time Into Pre-Op 05/22/24 09:07 Anesthesia Start 05/22/24 10:11 Into Room 05/22/24 10:11 Out of Pre-Op 05/22/24 10:11 Procedure Start 05/22/24 10:16 Procedure End 05/22/24 10:18 Procedure Start Time: Procedure Stop Time: Select all DRAINS/GRAFTS/IMPLA NTS that apply: None Estimated Blood Loss: 0 Specimen collected: No Description of surgery: ANESTHESIA: MAC. BLOOD LOSS: Minimal. COMPLICATIONS: None. DESCRIPTION OF PROCEDURE: History and physical of today was reviewed. Risks and benefits of the procedure were explained. The patient understood and agreed to proceed. Informed consent was obtained. IV inserted per routine protocol. The patient was taken to the operating room and placed in the prone position with a pillow positioned underneath the chest. The neck area was prepped and draped in a sterile fashion using iodine x3. Under fluoroscopy guidance on an AP view, the C4 through C7 vertebral bodies were visualized at approximately 10-degree angle, starting on the right C4, ending on the right C7, passing through the C5 and C6. Using a 25-gauge 3-1/2-inch spinal needle, the needle was advanced via the skin. The tip of the needle was maneuvered and directed towards the epiphyseal junction of each corresponding vertebra. Once the tip of the needle was at the vicinity of the medial branch, the needle was pulled approximately 2 mm off the bone. After negative aspiration of blood or CSF and confirmation on AP, oblique as well as lateral view, a total of 4 mL of preservative-free 0.25% Marcaine with 80 mg of Depo-Medrol was injected in divided doses between those four levels. The needles were then removed intact. The patient experienced no sign or symptoms of intrathecal or intravascular injection. The patient experienced no paresthesia. The procedure was completed without any apparent difficulty or any complications. The patient appeared to tolerate it well. ASSESSMENT AND PLAN: This is a 53-year-old female with cervical spondylosis, cervical degenerative disc disease, cervical facet arthropathy, status post right-sided cervical facet steroid injection C4-C7, patient will continue her current medications, patient will follow-up in approximately 1 to 2 weeks for reevaluation. Surgical Findings: 0 Complications Complications: No Admit VTE Documentation VTE Present on Admission: No VTE Mechan Device Prophylaxis: None VTE Pharm Prophylaxis ordered?: No 05/22/24 1024 Cosigner Signature (if applicable): CC: BARRY Mclcelland; Dr. Abram Cameron MD Signed [facility] Colonoscopy Reporton 025 Colonoscopy Report [facility] Medical Records Department [address] [place] [address] Colonoscopy Report MR#: [id number] Acct: [id number] Name: TINY MCCONNELL Rep #: [id number] : 1970 53 From: Tico Hernandez DO PCP: BARRY Dobson Status:REG [facility] Patient Name: Tiny Mcconnell Procedure Date: 05/10/2024 8:37 AM Date of : 1970 Age: 53 Procedure: Colonoscopy Indications: Screening for colorectal malignant neoplasm Providers: Tico Hernandez DO Referring MD: Barry Dobson Medicines: Monitored Anesthesia Care Patient Profile: This is a 53 year old female. Refer to note in patient chart for documentation of history and physical. Last Colonoscopy: none. The patient's first colonoscopy is today. Complications: No immediate complications. Procedure: Pre-Anesthesia Assessment: - Prior to the procedure, a History and Physical was performed, and patient medications and allergies were reviewed. The patient is competent. The risks and benefits of the procedure and the sedation options and risks were discussed with the patient. All questions were answered and informed consent was obtained. Patient identification and proposed procedure were verified by the physician in the pre-procedure area. Mental Status Examination: alert and oriented. Airway Examination: normal oropharyngeal airway and neck mobility. Respiratory Examination: clear to auscultation. CV Examination: normal. Prophylactic Antibiotics: The patient does not require prophylactic antibiotics. Prior Anticoagulants: The patient has taken no anticoagulant or antiplatelet agents. ASA Grade Assessment: II - A patient with mild systemic disease. After reviewing the risks and benefits, the patient was deemed in satisfactory condition to undergo the procedure. The anesthesia plan was to use monitored anesthesia care (MAC). Immediately prior to administration of medications, the patient was re-assessed for adequacy to receive sedatives. The heart rate, respiratory rate, oxygen saturations, blood pressure, adequacy of pulmonary ventilation, and response to care were monitored throughout the procedure. The physical status of the patient was re-assessed after the procedure. After I obtained informed consent, the scope was passed under direct vision. Throughout the procedure, the patient's blood pressure, pulse, and oxygen saturations were monitored continuously. The Colonoscope was introduced through the anus and advanced to the cecum, identified by the appendiceal orifice, IC valve and transillumination. The colonoscopy was performed without difficulty. The patient tolerated the procedure well. The quality of the bowel preparation was adequate. The ileocecal valve, appendiceal orifice, and rectum were photographed. Scope In: 8:47:18 AM Scope Withdrawal Time 0 hours 9 minutes 35 seconds Scope Out: 9:02:22 AM Total Procedure Duration Time 0 hours 15 minutes 4 seconds Findings: The perianal and digital rectal examinations were normal. A few small-mouthed diverticula were found in the recto-sigmoid colon. A moderate amount of stool was found in the recto-sigmoid colon, in the sigmoid colon, in the ascending colon and in the cecum, interfering with visualization. Lavage of the area was performed using a moderate amount of sterile water, resulting in clearance with good visualization. The exam was otherwise without abnormality on direct and retroflexion views. Impression: - Diverticulosis in the recto-sigmoid colon. - Stool in the recto-sigmoid colon, in the sigmoid colon, in the ascending colon and in the cecum. - The examination was otherwise normal on direct and retroflexion views. - No specimens collected. Recommendation: - Discharge patient to home. - Resume previous diet. - Continue present medications. - Repeat colonoscopy in 10 years for screening purposes. Procedure Code(s): --- Professional --- G0121, Colorectal cancer screening; colonoscopy on individual not meeting criteria for high risk CPT copyright 2021 [employer]. All rights reserved. The codes documented in this report are preliminary and upon home supervisor review may be revised to meet current compliance requirements. Tico Hernandez DO 05/10/2024 9:12:34 AM This report has been signed electronically. Number of Addenda: 0 Note Initiated On: 05/10/2024 8:37 AM 05/10/24911 Date Tico Ramirez Signature: Date (if indicated) CC: BARRY Hernandez DO Date Dictated: 05/10/24836 Date Transcribed: Grapple Operator: TATI Signed [facility] MR/POSTOP.[facility] 05-10-2024 MR/POSTOP.[facility] Medical Records Department [address] [place] [address] Anesthesia Postop Eval I 05/10/24910 MR#: [id number] Acct: [id number] Name: TINY MCCONNELL JO Rep #: [id number] : 1970 53 From: Juanjose Bolanos PCP: BARRY Dobson Status:REG SDC Y Race: C Location: [place] [address] Anesthesia: Postop Eval I Current Vital Signs Temperature: 97.2 F Pulse Rate: 76 Blood Pressure: 112/62 Respiratory Rate: 16 Pulse Ox: 99 Oxygen Delivery Method: Room Air Assessment Airway patent: Yes Spontaneous unlabored respirations: Yes Mental status: Awake and Calm nausea: No Vomiting: No Anesthesia Complication: No Fluid Hydration Crystalloid volume administer (ml): 50 Total IV fluid infused: 50 Progress Note Anesthesia document: Postop Eval 1 completed: Yes 05/10/24911 Date Juanjose Owen Signature: Date CC: Signed [facility] MR/[id number] 05-10-2024 MR/POSTOPAN2 [facility] Medical Records Department [address] [place] [address] Anesthesia Postop Eval II 05/10/24917 MR#: [id number] Acct: [id number] Name: TINY MCCONNELL Rep #: [id number] : 1970 53 From: Cameron Roman MD PCP: BARRY Dobson Status:REG SDC Y Race: C Location: [place] [address] Anesthesia Postop Eval I Sum Postop Eval Completion status Anesthesia document: Postop Eval 1 completed: Yes Anesthesia Postop Eval I Summary Anesthesia Postop Eval I Summary: Anesthesia Postop Eval I: Assessment Summary Airway patent Yes 05/10/24 09:12 [email or web address] Spontaneous unlabored Yes 05/10/24 09:12 [email or web address] respirations Mental status Awake,Calm 05/10/24 09:12 [email or web address] nausea No 05/10/24 09:12 [email or web address] Vomiting No 05/10/24 09:12 [email or web address] Anesthesia Postop Eval I: Fluid Summary Crystalloid volume administer 50 05/10/24 09:12 [email or web address] (ml) Colloids volume administered ( ml) Blood Product volume administered (ml) Total IV fluid infused 50 05/10/24 09:12 [email or web address] Anesthesia Postop Eval I: Summary Notes Anesthesia Complication No 05/10/24 09:12 [email or web address] Anesthesia Complication Comment: Post-operative progress note Anesthesia: Postop Eval II Evaluation Mental status: Awake Pain Level: 0 nausea: No Vomiting: No 05/10/24917 Date Cameron Roman MD Cosigner Signature: Date CC: Signed [facility] Cerv Spine 2 or 3 Viewson Cerv Spine 2 or 3 Views [facility] Imaging Services [address] [place] [id number] Cerv Spine 2 or 3 Views MR#: [id number] Acct: [id number] Name: TINY MCCONNELL JO Rep #: [id number] : 1970 F 53 From: Juan C Sellers MD PCP: BARRY Dobson Status: [facility] Study: Cerv Spine 2 or 3 Views Date of Exam: 02/21/24 Exam# [id number] Ordering Dr: Abram Cameron MD -[id number] EXAM: XR CERVICAL SPINE, 4 OR 5 VIEWS CLINICAL INDICATION: BLOCK, CERVICAL FACET, LEFT TECHNIQUE: Frontal, lateral and bilateral oblique views of the cervical spine. COMPARISON: No relevant prior studies available. FINDINGS: VERTEBRAE: Image obtained intraoperatively. Images show markedly along the left cervical spine for facet block. DISC SPACES: Unremarkable. Disc spaces are maintained. SOFT TISSUES: See above. LUNG APICES: Clear. RAD/Cerv Spine 2 or 3 Views IMPRESSION: Intraoperative localization for cervical facet block. Electronically Signed: Juan C Sellers MD at 0:01 EST , CC: DYNAMICS AX TECHNICAL ARCHITECT-C Emilee Mcclelland; Dr. Abram Cameron MD Grapple Operator: Signed [facility] MR/POSTOP.ANEon 02-21-2024 MR/POSTOP.[facility] Medical Records Department [address] [place] [address] Anesthesia Postop Eval I 02/21/24 1137 MR#: [id number] Acct: [id number] Name: TINY MCCONNELL JO Rep #: [id number] : 1970 53 From: Abdullahi Harris MD PCP: Emilee Stas, DYNAMICS AX TECHNICAL ARCHITECT-C Status:REG SDC Y Race: C Location: [place] [address] Abdullahi Harris MD on 02/21/24 at 1139 Addendum End time is 11:35 02/21/24 1139 Date Abdullahi Harris MD cc: * Signed Anesthesia: Postop Eval I Current Vital Signs Temperature: 97.4 F Pulse Rate: 59 Blood Pressure: 120/103 Respiratory Rate: 16 Pulse Ox: 100 Oxygen Delivery Method: Room Air Assessment Airway patent: Yes Spontaneous unlabored respirations: Yes Mental status: Awake and Calm nausea: No Vomiting: No Anesthesia Complication: No Fluid Hydration Crystalloid volume administer (ml): 4 Total IV fluid infused: 4 Progress Note Anesthesia document: Postop Eval 1 completed: Yes 02/21/241137 Date [facility] Signature: Date CC: Signed [facility] MR/[id number] 02-21-2024 [facility] Medical Records Department [address] [place] [address] Anesthesia Postop Eval II 02/21/24 1326 MR#: [id number] Acct: [id number] Name: ENEDINAFATMATA Rep #: [id number] : 1970 53 From: Cameron Roman MD PCP: BARRY Dobson Status:DEP [facility] Y Race: C Location: [facility] Anesthesia Postop Eval I Sum Postop Eval Completion status Anesthesia document: Postop Eval 1 completed: Yes Anesthesia Postop Eval I Summary Anesthesia Postop Eval I Summary: Anesthesia Postop Eval I: Assessment Summary Airway patent Yes 02/21/24 11:38 Spontaneous unlabored Yes 02/21/24 11:38 respirations Mental status Awake,Calm 02/21/24 11:38 nausea No 02/21/24 11:38 Vomiting No 02/21/24 11:38 Anesthesia Postop Eval I: Fluid Summary Crystalloid volume administer 4 02/21/24 11:38 (ml) Colloids volume administered ( ml) Blood Product volume administered (ml) Total IV fluid infused 4 02/21/24 11:38 Anesthesia Postop Eval I: Summary Notes Anesthesia Complication No 02/21/24 11:38 Anesthesia Complication Comment: Post-operative progress note Anesthesia: Postop Eval II Evaluation Mental status: Awake Pain Level: 0 nausea: No Vomiting: No 02/21/24 1326 Date Cameron Roman MD Cosignguadalupe Signature: Date CC: Signed [facility] Operative Reporton 4 Operative Report [facility] Medical Records Department [address] [place] [address] Operative Report 02/21/24 1128 MR#: [id number] Acct: [id number] Name: ENEDINAFATMATA Rep #: [id number] : 1970 53 From: Abram Cameron MD PCP: BARRY Dobson Status:[facility] Location: [place] [address] Operative Report (Standard) Operative Information Date of Procedure: 02/21/24 Pre-Operative Diagnosis: 1 Post-Operative Diagnosis: 1 Surgery/Procedure Performed: 1 laboratory scientist: No Type of Anesthesia: MAC and Topical Anesth RN Documented Start/Stop Times: Operation Date: 02/21/24 09:20 Case Time Into Pre-Op 02/21/24 07:55 Into Room 02/21/24 11:11 Anesthesia Start 02/21/24 11:12 Procedure Start 02/21/24 11:24 Procedure End 02/21/24 11:25 Procedure Start Time: Procedure Stop Time: Select all DRAINS/GRAFTS/IMPLA NTS that apply: None Estimated Blood Loss: 1 Specimen collected: No Description of surgery: PREOPERATIVE DIAGNOSIS: Cervical spondylosis, cervical degenerative disc disease, cervical facet arthropathy POSTOPERATIVE DIAGNOSIS:Cervical spondylosis, cervical degenerative disc disease, cervical facet arthropathy PROCEDURE PERFORMED: left sided cervical facet steroid injection, C4, C5, C6, and C7. ANESTHESIA: MAC. BLOOD LOSS: Minimal. COMPLICATIONS: None. DESCRIPTION OF PROCEDURE: History and physical of today was reviewed. Risks and benefits of the procedure were explained. The patient understood and agreed to proceed. Informed consent was obtained. IV inserted per routine protocol. The patient was taken to the operating room and placed in the prone position with a pillow positioned underneath the chest. The neck area was prepped and draped in a sterile fashion using iodine x3. Under fluoroscopy guidance on an AP view, the C4 through C7 vertebral bodies were visualized at approximately 10-degree angle, starting on the left C4, ending on the left C7, passing through the C5 and C6. Using a 25-gauge 3-1/2-inch spinal needle, the needle was advanced via the skin. The tip of the needle was maneuvered and directed towards the epiphyseal junction of each corresponding vertebra. Once the tip of the needle was at the vicinity of the medial branch, the needle was pulled approximately 2 mm off the bone. After negative aspiration of blood or CSF and confirmation on AP, oblique as well as lateral view, a total of 4 mL of preservative-free 0.25% Marcaine with 80 mg of Depo-Medrol was injected in divided doses between those four levels. The needles were then removed intact. The patient experienced no sign or symptoms of intrathecal or intravascular injection. The patient experienced no paresthesia. The procedure was completed without any apparent difficulty or any complications. The patient appeared to tolerate it well. ASSESSMENT AND PLAN: This is a 53-year-old female with cervical spondylosis, cervical degenerative disc disease, cervical facet arthropathy status post left-sided cervical facet steroid injection C4-C7, patient will continue her current medications, patient will follow approximately 2 weeks for reevaluation. Surgical Findings: 1 Complications Complications: No Admit VTE Documentation VTE Present on Admission: No VTE Pharm Prophylaxis ordered?: No 02/21/24 1130 Cosigner Signature (if applicable): CC: BARRY Mcclelland; Dr. Abram Cameron MD Signed [facility] Dexa Bone Density Studyon Dexa Bone Density Study [facility] Imaging Services [address], [place] [address] Dexa Bone Density Study MR#: [id number] Acct: [id number] Name: TINY MCCONNELL Rep #: [id number] : 1970 F 52 From: Quentin diego MD PCP: BARRY Dobson Status: REG CLI Study: Dexa Bone Density Study Date of Exam: 08/24/23 Exam# [id number] Ordering Dr: Emilee Mcclelland -[id number] STUDY: DUAL ENERGY X-RAY ABSORPTIOMETRY / DXA REASON FOR EXAM: Female, 52 years old. V76.12ScreeningBONE DENSITY REASON FOR EXAM TECHNIQUE: Bone Mineral Density (BMD) measurements of lumbar spine and bilateral hips were obtained. COMPARISON: Comparison is made with prior study dated August 14, 2008. FINDINGS: Lumbar Spine (L1-L4): g/cm2 (1.010) / T-score (-0.3) / Z-score (0.5) Findings are suggestive of normal bone density with a low fracture risk. Left Femur Total: g/cm2 (1.010) / T-score (0.6) / Z-score (1.1) Left Femoral Neck: g/cm2 (0.764) / T-score (-0.8) / Z-score (0.1) Right Femur Total: g/cm2 (1.038) / T-score (0.8) / Z-score (1.3) Right Femoral Neck: g/cm2 (0.840) / T-score (-0.1) / Z-score (0.8) The T-Scores on the most recent prior examination were: Lumbar Spine (L1-L4): There has been worsening of bone density since the previous examination. Left Femur Total: which represents a worsening of 5.2%. Right Femur Total: which represents a worsening of 0.7%. BD/Dexa Bone Density Study IMPRESSION: The patient is considered normal as outlined below according to World Trip Organization (WHO) criteria with a low fracture risk. There has been worsening of bone density since the previous examination. Reference Information: The T-score is the number of standard deviations above or below the standard which is normal for young adults at their peak bone mineral density. The World Health Organization (WHO) interprets the T-scores as follows: Above -1 Normal bone density Between -1 and -2.5 Osteopenia Equal to / or below -2.5 Osteoporosis As a practical clinical guideline, osteopenia may be graded as follows: Mild -1 through -1.5 Moderate -1.6 through -2.0 Severe -2.1 through -2.4 The Z-score is the number of standard deviations above or below age-matched controls. A Z-score of less than -1.5 would be considered abnormal. References: 1. NIH Osteoporosis and Related Bone Diseases www osteo.org 2. International Society for Clinical Densitometry www iscd.org 3. National Osteoporosis Foundation www nof.org Electronically Signed: Quentin Santos MD at 14:19 EDT , CC: BARRY Mcclelland Grapple Operator: Signed [facility] SCRN MAMM (CAD)W/AJITH Cool n 08-24-2023 SCRN MAMM (CAD)W/AJITH [facility] Imaging Services [address] [place] [address] SCRN MAMM (CAD)W/AJITH BILAT MR#: [id number] Acct: [id number] Name: TINY MCCONNELL Rep #: [id number] : 1970 F 52 From: Quentin diego MD PCP: BARRY Dobson Status: [facility] Study: SCRN MAMM (CAD)W/AJITH BILAT Date of Exam: 08/06 10/29 Exam# [id number] Ordering Dr: Emilee Mcclelland DYNAMICS AX TECHNICAL ARCHITECT-C -[id number] MAMMOGRAPHY - BILATERAL SCREENING REASON FOR EXAM: Female, 52 years old. Routine annual screening examination. PERTINENT HISTORY: Non-contributory. TECHNIQUE: Digital bilateral breast ajith (3D mammographic acquisition) in the CC and MLO projections. 2-D mediolateral oblique (MLO) and craniocaudad (CC) views of both breasts were obtained. CAD: Full Field Digital Mammography with Computer Added Detection was performed. COMPARISON: Comparison is made with prior study July 14, 2022 and August 08, 2015. FINDINGS: Breast Composition: There are scattered areas of fibroglandular density. There are no dominant masses or suspicious calcifications. Stable 1 cm well-defined nodule in the inferior medial aspect of the left breast. This was demonstrated to be a small cyst on prior sonogram. No other significant abnormalities are identified. There has been no significant change since the prior study. BI/SCRN MAMM (CAD)W/AJITH BILAT IMPRESSION: Stable bilateral screening mammogram. Yearly follow-up mammogram recommended. (A) ASSESSMENT CATEGORY: BIRADS Category 2: Benign. A letter regarding these results will be sent to the patient by the facility within 30 days. Approximately 10% of breast cancers are not detected by mammography. A normal mammogram should not delay biopsy of a clinically suspicious abnormality. [id number] Electronically Signed: Quentin Santos MD at 10:52 EDT , CC: BARRY Mcclelland Grapple Operator: Signed [facility] Cerv Spine 4 or 5 Viewson Cerv Spine 4 or 5 Views [facility] Imaging Services [address] [place], [place] [id number] Cerv Spine 4 or 5 Views MR#: [id number] Acct: [id number] Name: TINY MCCONNELL Rep #: [id number] : 1970 F 52 From: Quentin diego MD PCP: BARRY Dobson Status: [facility] Study: Cerv Spine 4 or 5 Views Date of Exam: 08/23/23 Exam# [id number] Ordering Dr: Abram Cameron MD -[id number] PROCEDURE: Right cervical facet injection. DATE OF EXAMINATION: August 23, 2023. INDICATION: Female, 52 years old. Cervical neck pain. FLUOROSCOPY TIME (if supplied): (11.1 seconds) minutes/seconds. 1.51 mGy. 4 images were submitted. RAD/Cerv Spine 4 or 5 Views IMPRESSION: Intraoperative imaging provided for right cervical facet joint injection. Electronically Signed: Quentin Santos MD at 8:03 EDT , CC: BARRY Mcclelland; Dr. Abram Cameron MD Grapple Operator: Signed [facility] MR/POSTOP.ANEon 08-23-2023 MR/POSTOP.[facility] Medical Records Department [address] [place] [address] Anesthesia Postop Eval I 08/23/23 0953 MR#: [id number] Acct: [id number] Name: TINY MCCONNELL Rep #: [id number] : 1970 52 From: Pradeep Kent CRNA PCP: KAVITA DobsonC Status:[facility] Y Race: C Location: [place] [address] Anesthesia: Postop Eval I Current Vital Signs Temperature: 97.8 F Pulse Rate: 74 Blood Pressure: 120/71 Respiratory Rate: 16 Pulse Ox: 99 Oxygen Delivery Method: Room Air Assessment Airway patent: Yes Spontaneous unlabored respirations: Yes Mental status: Awake and Calm nausea: No Vomiting: No Anesthesia Complication: No Fluid Hydration Crystalloid volume administer (ml): 200 Total IV fluid infused: 200 Progress Note Anesthesia document: Postop Eval 1 completed: Yes 08/23/23957 Date Pradeep Kent CRNA Cosigner Signature: Date CC: Signed [facility] MR/[id number] 08-23-2023 MR/POSTOPAN2 [facility] Medical Records Department [address] [place] [address] Anesthesia Postop Eval II 08/23/23 1237 MR#: [id number] Acct: [id number] Name: TINY MCCONNELL Rep #: [id number] : 1970 52 From: Cameron Roman MD PCP: BARRY Dobson Status:[facility] Y Race: C Location: [facility] Anesthesia Postop Eval I Sum Postop Eval Completion status Anesthesia document: Postop Eval 1 completed: Yes Anesthesia Postop Eval I Summary Anesthesia Postop Eval I Summary: Anesthesia Postop Eval I: Assessment Summary Airway patent Yes 08/23/23 09:58 DERMATOLOGY PROCEDURAL [email or web address] Spontaneous unlabored Yes 08/23/23 09:58 DERMATOLOGY PROCEDURAL PHYSICIAN.[email or web address] respirations Mental status Awake,Calm 08/23/23 09:58 DERMATOLOGY PROCEDURAL PHYSICIAN.[email or web address] nausea No 08/23/23 09:58 DERMATOLOGY PROCEDURAL PHYSICIAN.[email or web address] Vomiting No 08/23/23 09:58 DERMATOLOGY PROCEDURAL PHYSICIAN.JBLOU Anesthesia Postop Eval I: Fluid Summary Crystalloid volume administer 200 08/23/23 09:58 DERMATOLOGY PROCEDURAL PHYSICIAN.JBLOU (ml) Colloids volume administered ( ml) Blood Product volume administered (ml) Total IV fluid infused 200 08/23/23 09:58 DERMATOLOGY PROCEDURAL PHYSICIAN.JBLOU Anesthesia Postop Eval I: Summary Notes Anesthesia Complication No 08/23/23 09:58 DERMATOLOGY PROCEDURAL PHYSICIAN.[email or web address] Anesthesia Complication Comment: Post-operative progress note Anesthesia: Postop Eval II Evaluation Mental status: Awake Pain Level: 0 nausea: No Vomiting: No Complications Anesthesia Complication: No 08/23/23 1237 Date Cameron Roman MD Cosigner Signature: Date CC: Signed [facility] Operative Reporton 4 Operative Report [facility] Medical Records Department [address] [place] [address] Operative Report 08/23/23 1055 MR#: [id number] Acct: [id number] Name: MCCONNELLTINYFATMATA Rep #: [id number] : 1970 52 From: Abram Cameron MD PCP: BARRY Dobson Status:[facility] Location: [facility] Report of Operation Date of Procedure: 08/23/23 Description of Surgical Findings:: PREOPERATIVE DIAGNOSIS: Cervical spondylosis, cervical degenerative disc disease, cervical facet arthropathy POSTOPERATIVE DIAGNOSIS:Cervical spondylosis, cervical degenerative disc disease, cervical facet arthropathy PROCEDURE PERFORMED: Right sided cervical facet steroid injection, C4, C5, C6, and C7. ANESTHESIA: MAC. BLOOD LOSS: Minimal. COMPLICATIONS: None. DESCRIPTION OF PROCEDURE: History and physical of today was reviewed. Risks and benefits of the procedure were explained. The patient understood and agreed to proceed. Informed consent was obtained. IV inserted per routine protocol. The patient was taken to the operating room and placed in the prone position with a pillow positioned underneath the chest. The neck area was prepped and draped in a sterile fashion using iodine x3. Under fluoroscopy guidance on an AP view, the C4 through C7 vertebral bodies were visualized at approximately 10-degree angle, starting on the right C4, ending on the right C7, passing through the C5 and C6. Using a 25-gauge 3-1/2-inch spinal needle, the needle was advanced via the skin. The tip of the needle was maneuvered and directed towards the epiphyseal junction of each corresponding vertebra. Once the tip of the needle was at the vicinity of the medial branch, the needle was pulled approximately 2 mm off the bone. After negative aspiration of blood or CSF and confirmation on AP, oblique as well as lateral view, a total of 4 mL of preservative-free 0.25% Marcaine with 80 mg of Depo-Medrol was injected in divided doses between those four levels. The needles were then removed intact. The patient experienced no sign or symptoms of intrathecal or intravascular injection. The patient experienced no paresthesia. The procedure was completed without any apparent difficulty or any complications. The patient appeared to tolerate it well. ASSESSMENT AND PLAN: This is a 52-year-old female with cervical spondylosis, cervical degenerative disc disease, cervical facet arthropathy status post right-sided cervical facet steroid injection C4-C7, patient will continue her current medications, patient will follow approximately 2 weeks for reevaluation. 08/23/23 1057 Cosigner Signature (if applicable): CC: DYNAMICS AX TECHNICAL ARCHITECTVijay Mcclelland; Dr. Abram Cameron MD Signed [facility] Absolute lymphocyte countOrd ered By: Emilee Mcclelland on 07-08-2022 Lymphocytes Auto (Unsp spec) [#/Vol] 2.00 10*3/uL 0.83-4.51 [facility] Basophil percentageOrdered B y: Emilee Mcclelland on 07-08-2022 Basophils/100 WBC (Bld) 0.5 % 0-1 [facility] Bilirubin [Mass/Vol] 0.30 mg/dL 0.20-1.00 [facility] Comment on above: For patients on eltr ombopag therapy, use of Dimension [place] TBIL is not recommended. Chloride [Moles/Vol] 107 mmol/L 98-107 [facility] Cholesterol [Mass/Vol] 231 mg/dL <200 [facility] Comment on above: <200 mg/dL Desirable 200-240 mg/dL Borderline >240 mg/dL High Risk Eosinophils/100 WBC (Bld) 2.0 % 0-5 [facility] Glucose [Mass/Vol] 92 mg/dL 74-106 [facility] Neutrophils (Bld) [#/Vol] 3.9 10*3/uL 2.0-7.7 [facility] Neutrophils/100 WBC (Bld) 60.0 % 47-70 [facility] Potassium [Moles/Vol] 3.6 mmol/L 3.5-5.1 [facility] Protein [Mass/Vol] 7.2 g/dL 6.4-8.2 [facility] Sodium [Moles/Vol] 140 mmol/L 136-145 [facility] Triglyceride [Mass/Vol] 156 mg/dL <199 [facility] Comment on above: The drugs N-Acetylcy steine and Metamizole may falsely depress this assay.Serum Triglycerides Reference Interval Normal <150 mg/dL Borderline high 150 - 199 mg/dL High 200 - 499 mg/dL Very High > or = 500 mg/dL WBC (Bld) [#/Vol] 6.5 10*3/uL 4.4-11.0 [facility] Blood erythrocytes count (nu mber/volume)Ordered By: Emilee Mcclelland on 07-08-2022 RBC (Bld) [#/Vol] 4.82 10*6/uL 4.2-5.4 [facility] Blood hemoglobin measurement (mass/volume)Ordered By: Emilee Mcclelland on 07-08-2022 Hemoglobin (Bld) [Mass/Vol] 14.4 g/dL 12.0-15.0 [facility] Blood lymphocytes/100 leukoc ytesOrdered By: Emilee Mcclelland on 07-08-2022 Lymphocytes/100 WBC (Bld) 31.0 % 19-41 [facility] Blood monocytes/100 leukocyt esOrdered By: Emilee Mcclelland on 07-08-2022 Monocytes/100 WBC (Bld) 6.2 % 0-10 [facility] Blood platelet mean volumeOr dered By: Emilee Mcclelland on 07-08-2022 Platelet mean volume (Bld) [Entitic vol] 10.6 fL 6.2-12.0 [facility] Determination of erythrocyte mean corpuscular volume (MCV)Ordered By: Emilee Mcclelland on 07-08-2022 MCV (RBC) [Entitic vol] 89.8 fL 81-99 [facility] Hematocrit Auto (Bld) [Volum e fraction]Ordered By: Emileerenan Mcclelland on 07-08-2022 Hematocrit (Bld) [Volume fraction] 43.3 % 37-47 [facility] Iron measurement (mass/mass) Ordered By: Emileerenan Mcclelland on 07-08-2022 Iron (Unsp spec) [Mass/Mass] 48 ug/dL 50-170 [facility] Laboratory - Chemistry and C hemistry - challengeOrdered By: [place] Stas on 07-08-2022 ALP [Catalytic activity/Vol] 79 U/L 45-117 [facility] ALT [Catalytic activity/Vol] 15 U/L 13-56 [facility] CO2 [Moles/Vol] 26.0 mmol/L 21.0-32.0 [facility] Free T4 [Mass/Vol] 0.90 ng/dL 0.76-1.46 [facility] Globulin (S) [Mass/Vol] 3.4 g/dL 2.2-4.2 [facility] Urea nitrogen/Creatinine [Mass ratio] 12.1 mg/mg 10-20 [facility] - Hematology and Cell countsOrdered By: Emilee Mcclelland on 07-08-2022 Erythrocyte distribution width (RBC) [Entitic vol] 41.0 fL 35.1-43.9 [facility] Erythrocyte distribution width (RBC) [Ratio] 12.6 % 11.6-14.6 [facility] Immature granulocytes/100 WBC (Bld) 0.300 % 0.0-0.9 [facility] Comment on above: IG% - Immature Granu locytes (promyelocytes, myelocytes and metamyelocytes) > 1% indicates that a LEFT SHIFT is Present. MCH (RBC) [Entitic mass] 29.9 pg 27.0-32.0 [facility] Nucleated RBC/100 WBC (Bld) [Ratio] 0 % 0-5 [facility] MCHC Auto (RBC) [Mass/Vol]Or dered By: Emilee Mcclelland on 07-08-2022 MCHC (RBC) [Mass/Vol] 33.3 g/dL 32-36 [facility] No Panel InformationOrdered By: Emilee Mcclelland on 07-08-2022 Estimated GFR (MDRD) Amer 94 mL/min >60 [facility] Comment on above: GFR Calc Estimated GFR (MDRD) Non-Af Amer 78 mL/min >60 [facility] Comment on above: Non- GFR Calc Thyroid Stimulating Hormone (TSH) 3.25 uIU/mL 0.358-3.74 [facility] Vitamin D 25-Hydroxy 32.2 ng/mL [facility] Comment on above: Vitamin D 25(OH) Sta tus Range Deficiency <20 ng/mL (50nmol/L) Insufficiency 20 - 30 ng/mL (50 - 75 nmol/L) Sufficiency 30 - 100 ng/mL (75 - 250 nmol/L) Toxicity >100 ng/mL (>250 nmol/L) Platelets bldOrdered By: Anila Mcclelland on 07-08-2022 Platelets (Bld) [#/Vol] 220 10*3/uL 150-450 [facility] Serum or plasma albumin adebayo urement (mass/volume)Ordered By: Emilee Mcclelland on 07-08-2022 Albumin [Mass/Vol] 3.8 g/dL 3.2-5.0 [facility] Serum or plasma albumin/glob ulin mass ratioOrdered By: Emilee Mcclelland on 07-08-2022 Albumin/Globulin [Mass ratio] 1.1 {ratio} 0.9-2.4 [facility] Serum or plasma calcium adebayo urement (mass/volume)Ordered By: Emilee Mcclelland on 07-08-2022 Calcium [Mass/Vol] 8.8 mg/dL 8.5-10.1 [facility] Serum or plasma cholesterol in HDL measurement (mass/volume)Ordered By: Emilee Mcclelland on 07-08-2022 Cholesterol in HDL [Mass/Vol] 43 mg/dL >40 [facility] Comment on above: The drugs N-Acetylcy steine and Metamizole may falsely depress this assay. Reference Range HDL <40 mg/dL Low HDL Cholesterol HDL >or= 60 mg/dL High HDL Cholesterol Serum or plasma cholesterol in VLDL measurement (mass/volume)Ordered By: Emilee Mcclelland on 07-08-2022 Cholesterol in VLDL [Mass/Vol] 31 mg/dL 5-40 [facility] Serum or plasma creatinine m easurement (mass/volume)Ordered By: Emilee Mcclelland on 07-08-2022 Creatinine [Mass/Vol] 0.82 mg/dL 0.55-1.02 [facility] Comment on above: The validity of the calculated GFR & GFRAA in patients over 70 years has not been determined. Clinical correlation is essential. Serum or plasma ferritin derek surement (mass/volume)Ordered By: Emilee Mcclelland on 07-08-2022 Ferritin [Mass/Vol] 26 ng/mL 8-252 [facility] Serum or plasma low density lipoprotein (LDL) cholesterol measurement (mass/volume)Ordered By: Emilee Mcclelland on 07-08-2022 Cholesterol in LDL [Mass/Vol] 157 mg/dL 0-130 [facility] Serum or plasma urea nitroge n measurement (mass/volume)Ordered By: Emilee Mcclelland on 07-08-2022 Urea nitrogen [Mass/Vol] 10 mg/dL 7-18 [facility] Thin prep Papanicolaou smear with manual screeningOrdered By: Emilee Mcclelland on 07-08-2022 Thin prep Papanicolaou smear with manual screening 8 U/L 15-37 [facility] Thin prep Papanicolaou smear with manual screening 7 5-15 [facility] Vital Signs Date Time Vital Sign Value Performing Clinician Govindi ponce 07-24-2024 12:10-0400 Body temperature 97 [degF] Emilee Mcclelland DYNAMICS AX TECHNICAL ARCHITECT-C Work Phone: [facility] 07-24-2024 12:10-0400 Diastolic blood pressure 95 mm[Hg] Emilee Stas DYNAMICS AX TECHNICAL ARCHITECT-C Work Phone: [facility] 07-24-2024 12:10-0400 Heart rate 61 /min Emilee Stas DYNAMICS AX TECHNICAL ARCHITECT-C Work Phone: [facility] 07-24-2024 12:10-0400 Respiratory rate 16 /min Emilee Stas DYNAMICS AX TECHNICAL ARCHITECT-C Work Phone: [facility] 07-24-2024 12:10-0400 SaO2% (BldA) [Mass fraction] 99 % Emilee Stas DYNAMICS AX TECHNICAL ARCHITECT-C Work Phone: [facility] 07-24-2024 12:10-0400 Systolic blood pressure 143 mm[Hg] Emilee Stas DYNAMICS AX TECHNICAL ARCHITECT-C Work Phone: [facility] 07-24-2024 10:59-0400 Body height 162.56 cm Emilee Stas DYNAMICS AX TECHNICAL ARCHITECT-C Work Phone: [facility] 07-24-2024 10:59-0400 Body mass index (BMI) [Ratio] 36.7 kg/m2 Emilee Stas DYNAMICS AX TECHNICAL ARCHITECT-C Work Phone: [facility] 07-24-2024 10:59-0400 Body weight 97 kg Emilee Stas DYNAMICS AX TECHNICAL ARCHITECT-C Work Phone: [facility] 05-22-2024 10:40-0400 Body temperature 97.5 [degF] Emilee Stas DYNAMICS AX TECHNICAL ARCHITECT-C Work Phone: [facility] 05-22-2024 10:40-0400 Diastolic blood pressure 77 mm[Hg] Emilee Stas DYNAMICS AX TECHNICAL ARCHITECT-C Work Phone: [facility] 05-22-2024 10:40-0400 Heart rate 63 /min Emilee Stas DYNAMICS AX TECHNICAL ARCHITECT-C Work Phone: [facility] 05-22-2024 10:40-0400 Respiratory rate 16 /min Emilee Stas DYNAMICS AX TECHNICAL ARCHITECT-C Work Phone: [facility] 05-22-2024 10:40-0400 SaO2% (BldA) [Mass fraction] 98 % Emilee Stas DYNAMICS AX TECHNICAL ARCHITECT-C Work Phone: [facility] 05-22-2024 10:40-0400 Systolic blood pressure 127 mm[Hg] Emilee Stas DYNAMICS AX TECHNICAL ARCHITECT-C Work Phone: [facility] 05-22-2024 09:07-0400 Body height 162.56 cm Emilee Stas DYNAMICS AX TECHNICAL ARCHITECT-C Work Phone: [facility] 05-22-2024 09:07-0400 Body mass index (BMI) [Ratio] 36 kg/m2 Emilee Stas DYNAMICS AX TECHNICAL ARCHITECT-C Work Phone: [facility] 05-22-2024 09:07-0400 Body weight 95.2 kg Emilee Stas DYNAMICS AX TECHNICAL ARCHITECT-C Work Phone: [facility] 05-10-2024 09:20-0500 Body temperature 97.8 [degF] Emilee Stas DYNAMICS AX TECHNICAL ARCHITECT-C Work Phone: [facility] 05-10-2024 09:20-0500 Diastolic blood pressure 66 mm[Hg] Emilee Stas DYNAMICS AX TECHNICAL ARCHITECT-C Work Phone: [facility] 05-10-2024 09:20-0500 Heart rate 68 /min Emilee Stas DYNAMICS AX TECHNICAL ARCHITECT-C Work Phone: [facility] 05-10-2024 09:20-0500 Respiratory rate 18 /min Emilee Stas DYNAMICS AX TECHNICAL ARCHITECT-C Work Phone: [facility] 05-10-2024 09:20-0500 SaO2% (BldA) [Mass fraction] 98 % Emilee Stas DYNAMICS AX TECHNICAL ARCHITECT-C Work Phone: [facility] 05-10-2024 09:20-0500 Systolic blood pressure 117 mm[Hg] Emilee Stas DYNAMICS AX TECHNICAL ARCHITECT-C Work Phone: [facility] 05-10-2024 08:04-0500 Body mass index (BMI) [Ratio] 34.8 kg/m2 Emilee Stas DYNAMICS AX TECHNICAL ARCHITECT-C Work Phone: [facility] 05-10-2024 08:04-0500 Body weight 92 kg Emileerenan Mcclelland DYNAMICS AX TECHNICAL ARCHITECT-C Work Phone: [facility] 02-21-2024 11:45-0500 Body temperature 97.9 [degF] Emilee Stas DYNAMICS AX TECHNICAL ARCHITECT-C Work Phone: [facility] 02-21-2024 11:45-0500 Diastolic blood pressure 75 mm[Hg] Emilee Stas DYNAMICS AX TECHNICAL ARCHITECT-C Work Phone: [facility] 02-21-2024 11:45-0500 Heart rate 64 /min Emilee Stas DYNAMICS AX TECHNICAL ARCHITECT-C Work Phone: [facility] 02-21-2024 11:45-0500 Respiratory rate 16 /min Emilee Stas DYNAMICS AX TECHNICAL ARCHITECT-C Work Phone: [facility] 02-21-2024 11:45-0500 SaO2% (BldA) [Mass fraction] 100 % Emileerenan Mcclelland DYNAMICS AX TECHNICAL ARCHITECT-C Work Phone: [facility] 02-21-2024 11:45-0500 Systolic blood pressure 135 mm[Hg] Emilee Quinterosgar DYNAMICS AX TECHNICAL ARCHITECT-C Work Phone: [facility] 02-21-2024 09:56-0500 Body mass index (BMI) [Ratio] 31.7 kg/m2 Emilee Stas DYNAMICS AX TECHNICAL ARCHITECT-C Work Phone: [facility] 02-21-2024 09:56-0500 Body weight 83.91 kg Emilee Stas DYNAMICS AX TECHNICAL ARCHITECT-C Work Phone: [facility] 02-21-2024 08:09-0500 Body mass index (BMI) [Ratio] 33.7 kg/m2 Emilee Stas DYNAMICS AX TECHNICAL ARCHITECT-C Work Phone: [facility] 02-21-2024 08:09-0500 Body weight 92 kg Emilee Stas DYNAMICS AX TECHNICAL ARCHITECT-C Work Phone: [facility] Encounters Encounter Date Encounter Type Care Provider Facility Start: 08-19-2024 ambulatory [facility] Facility: [facility] Start: 08-15-2024 End: 08-15-2024 ambulatory Emilee Mcclelland DYNAMICS AX TECHNICAL ARCHITECT-C Work Phone: [facility] Work Phone: Start: 08-15-2024 End: 08-15-[address] Abram Cameron MD -Physical Therapy Work Phone: Start: 08-15-[address] Bharat Cameron MD -Physical Therapy Work Phone: Start: 08-11-2024 End: 08-11-2024 ambulatory Emilee Mcclelland DYNAMICS AX TECHNICAL ARCHITECT-C Work Phone: [facility] Work Phone: Start: 08-11-2024 End: 08-11-[address] Abram Cameron MD -Radiology [place] Work Phone: Start: 08-11-2024 End: 08-11-2024 ambulatory [facility] Facility:[facility] Start: 07-24-2024 End: 07-24-2024 Admission to same day surgery center Dr. Abram Cameron MD -Surgical Day Care Start: 07-24-2024 End: 07-24-2024 ambulatory Emilee Mcclelland DYNAMICS AX TECHNICAL ARCHITECT-C Work Phone: [facility] Work Phone: Start: 07-21-[address] Bharat Cameron MD -Physical Therapy Work Phone: Start: 06-14-2024 End: 06-14-2024 ambulatory Emilee Stas DYNAMICS AX TECHNICAL ARCHITECT-C Work Phone: [facility] Work Phone: Start: 06-14-2024 End: 06-14-[address] Abram Cameron MD -Radiology, [place] Work Phone: Start: 06-14-2024 End: 06-14-2024 ambulatory Emilee Stas Facility:[facility] Start: 05-22-2024 End: 05-22-2024 Admission to same day surgery center Dr. Abram Cameron MD -[facility] Start: 05-22-2024 End: 05-22-2024 ambulatory Emilee Stas DYNAMICS AX TECHNICAL ARCHITECT-C Work Phone: [facility] Work Phone: Start: 05-10-2024 Non-patient / Non-visit Tico Frie marcello DO -WC-[facility] Start: 05-10-2024 End: 05-10-2024 Admission to same day surgery center Tico Hernandez DO -Endoscopy Work Phone: Start: 05-10-2024 End: 05-10-2024 ambulatory Emilee Stas Facility:[facility] Start: 02-21-2024 Non-patient / Non-visit Emilee Stas DYNAMICS AX TECHNICAL ARCHITECT-C Work Phone: -[facility] Work Phone: Start: 02-21-2024 ambulatory Emilee Stas Facility:[facility] Start: 02-21-2024 End: 02-21-2024 Admission to same day surgery center Dr. Abram Cameron MD -[facility] Start: 02-21-2024 End: 02-21-2024 ambulatory [place] Stas Facility:[facility] Start: 10-17-2023 ambulatory [facility] Facility:[facility] Start: 09-14-2023 End: 10-06-2023 ambulatory [place] Stas Facility:[facility] Start: 08-23-2023 End: 08-24-2023 ambulatory [place] Stas Facility:[facility] Start: 08-19-2023 End: 09-05-2023 ambulatory [facility] Facility:[facility] Start: 07-14-2022 End: 07-14-2022 ambulatory [facility] Work Phone: Start: 07-14-2022 End: 07-14-2022 Patient encounter procedure [facility] Start: 07-08-2022 End: 07-08-2022 ambulatory [facility] Work Phone: Start: 07-08-2022 End: 07-08-2022 Patient encounter procedure [facility], [place] [facility] Procedures Date Procedure Procedure Detail Performing Clinician Start: 08-11-2024 Plain X-ray of shoulder Emilee Mcclelland DYNAMICS AX TECHNICAL ARCHITECT-C Work Phone: Start: 07-24-2024 Local anesthetic sac ral epidural block Emileerenan Mcclelland DYNAMICS AX TECHNICAL ARCHITECT-C Work Phone: Start: 07-24-2024 Fluoroscopy guided injection of cervical spinal nerve root Emilee Mcclelland DYNAMICS AX TECHNICAL ARCHITECT-C Work Phone: Start: 07-24-2024 Injection using fluoroscopic guidance Emilee Mcclelland DYNAMICS AX TECHNICAL ARCHITECT-C Work Phone: Start: 06-14-2024 Complete x-ray serie s of lumbar spine with bending views Emileerenan Mcclelland DYNAMICS AX TECHNICAL ARCHITECT-C Work Phone: Start: 05-22-2024 Fluoroscopy guided injection of cervical spinal nerve root Emilee Mcclelland DYNAMICS AX TECHNICAL ARCHITECT-C Work Phone: Start: 05-22-2024 Injection using fluoroscopic guidance Emilee Mcclelland DYNAMICS AX TECHNICAL ARCHITECT-C Work Phone: Start: 05-22-2024 Local anesthetic cer vical facet joint nerve block Emilee Tsas DYNAMICS AX TECHNICAL ARCHITECT-C Work Phone: Start: 02-21-2024 Local anesthetic cer vical facet joint nerve block Emilee Stas DYNAMICS AX TECHNICAL ARCHITECT-C Work Phone: Start: 02-21-2024 Fluoroscopy guided injection of cervical spinal nerve root Emilee Mcclelland DYNAMICS AX TECHNICAL ARCHITECT-C Work Phone: Start: 02-21-2024 Injection of facet joint Emilee Quinterosgar DYNAMICS AX TECHNICAL ARCHITECT-C Work Phone: Start: 02-21-2024 X-ray of cervical spine Emilee Mcclelland DYNAMICS AX TECHNICAL ARCHITECT-C Work Phone: Start: 07-14-2022 Screening mammography Plan of Treatment Date Care Activity Detail Author Start: 07-24-2024 Anes dx/ther nerve block/injection prone pos ANESTH N BLOCK/INJ PRONE [facility] Start: 07-24-2024 Njx dx/ther sbst intrlmnr lmbr/sac w/img gdn NJX INTERLAMINAR LMBR/SAC [facility] Start: 07-24-2024 Fluoroscopy guided injection of cervical spinal nerve root [facility] Start: 07-24-2024 Injection using fluoroscopic guidance [facility] Start: 07-24-2024 Patient discharge [facility] Start: 05-22-2024 Anes dx/ther nerve block/injection prone pos ANESTH N BLOCK/INJ PRONE [facility] Start: 05-22-2024 Njx dx/ther agt pvrt facet jt crv/thrc 1 level INJ PARAVERT F JNT C/T 1 [facility] Start: 05-22-2024 Njx dx/ther agt pvrt facet jt crv/thrc 2nd level INJ PARAVERT F JNT C/T 2 [facility] Start: 05-22-2024 Njx dx/ther agt pvrt facet jt crv/thrc 3+ level INJ PARAVERT F JNT C/T 3 [facility] Start: 05-22-2024 Fluoroscopy guided injection of cervical spinal nerve root [facility] Start: 05-22-2024 Injection using fluoroscopic guidance [facility] Start: 05-22-2024 Patient discharge [facility] Start: 05-10-2024 Colonoscopy flx dx w/collj spec when pfrmd DIAGNOSTIC COLONOSCOPY [facility] Start: 05-10-2024 Patient discharge [facility] Start: 02-21-2024 Patient discharge [facility] Colonoscopy [facility] Patient referral [facility] Work Phone: Payers Date Payer Category Payer Self-pay [id number] 2023 Unknown [id number] 2016 Unknown [facility] [id number] 2014 Medicaid [id number] 2003 Medicare MEDICARE PART A B [id number] Unknown [facility] *DO NOT USE* [id number] Unknown [id number] 2.16.8 [id number] Unknown [id number] 2.16.8 [id number] Unknown [id number] 2.16.8 [id number] Unknown [id number] 2.16.8 [id number] Unknown [id number] 2.16.8 40.1.509837.3.579.2.462 Unknown [id number] 2.16.8 40.1.472307.3.579.2.462 Unknown [id number] 2.16.8 40.1.648611.3.579.2.462 Unknown [id number] 2.16.8 40.1.804724.3.579.2.462 Unknown [id number] 2.16.8 40.1.212955.3.579.2.462 Unknown [id number] 2.16.8 40.1.374577.3.579.2.462 Unknown [id number] 2.16.8 40.1.998045.3.579.2.462 Unknown [id number] 2.16.8 40.1.223145.3.579.2.462 Unknown [id number] 2.16.8 40.1.699181.3.579.2.462 Unknown [id number] 2.16.8 40.1.032877.3.579.2.462 Unknown [id number] 2.16.8 [id number] Social History Date Type Detail Facility Start: 04-03-2020 Tobacco smoking status NHIS Unknown if ever smoked [facility] Start: 1970 Sex Assigned At Female [facility] Start: 05-09-2024 Tobacco smoking status NHIS Never smoked tobacco (finding) [facility] Start: 05-22-2024 End: 06-20-2024 Sex Female (finding) [facility] NEGATED: Highlighted row Not [facility] Goals Date Patient Goal Desired Activity /State Mental Status Date Assessment Result Facility 07-24-2024 Cognitive function Voice/Name [facility] Work Phone: 05-22-2024 Cognitive function Voice/Name [facility] Work Phone: 05-10-2024 Cognitive function Voice/Name [facility] Work Phone: 02-21-2024 Cognitive function Voice/Name [facility] Work Phone: Clinical Notes 05-10-2024 to 08-15-2024 Note Date & Type Note Facility 08-15-2024 Discharge summary Note Date/Time August 15, 2024 7:00 pm [facility] [place] [address] / REHABILITATION SERVICES DISCHARGE SUMMARY MR#: [id number] Acct: [id number] Name: TINY MCCONNELL Rep #: [id number] : 1970 53 From: Debbie Lugo Referring Dr.: Dr. Abram Cameron MD Status: REG RCR Insurance: [employer] SELF PAY INSURANCE Discharge Summary D/C summary: It has been my pleasure to treat TINY MCCONNELL referred by Dr. Abram Cameron MD, with the diagnosis of Radic and DDD Lumbo-sacral for a total of 9 visit(s). Discharge Date: 08/15/24 Please see the following information for a summary of their discharge status. Subjective Subjective: Her pain in her butt cheek now and twice now she has had it travel down her leg to her foot. Her LBP is better since the caudal injection. The next step is an MRI. She does her exercises at home on days she is not in therapy. The marching triggersher LB. She sees the Dr in a week. Pain Back pain: Pain Intensity (Out of 10): 2 L glute: Pain Intensity (Out of 10): 2 Overall Improvement % Improvement: 40 Objective Objective/Function: Pt had increase L buttock pain lifting her leg into supine Lankle over the R knee but was able to stretch once got into that position. Pt had increase back pain with Prone to KELLY. 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 Thank you for the referral of thispatient. Sincerely, THANIA Chung Balance/Gait/Functional tests Balance/Special Test Scores Oswestry Low Back Score: 20 Improvement % Improvement: 40 <Electronically signed by Debbie Palmer MPT> 08/15/24 1100 CC: BARRY Mcclelland; Dr. Abram Cameron MD ~ Signed [facility] Work Phone: 1(858) 340-492006-10-2025 Discharge summary [facility] [address] [place] [address] [address] [place] [address] / REHABILITATION SERVICES DISCHARGE SUMMARY MR#: [id number] Acct: [id number] Name: TINY MCCONNELL Rep #: [id number] : 1970 53 From: Debbie Lugo Referring Dr.: Dr. Abram Cameron MD Status: REG RCR Insurance: [employer] SELF PAY INSURANCE Discharge Summary D/C summary: It has been my pleasure to treat TINY MCCONNELL referred by Dr. Abram Cameron MD, with the diagnosis of Radic and DDD Lumbo-sacral for a total of 9 visit(s). Discharge Date: 08/15/24 Please see the following information for a summary of their discharge status. Subjective Subjective: Her pain in her butt cheek now and twice now she has had it travel down her leg to her foot. Her LBP is better since the caudal injection. The next step is an MRI. She does her exercises at home on days she is not in therapy. The marching triggersher LB. She sees the Dr in a week. Pain Back pain: Pain Intensity (Out of 10): 2 L glute: Pain Intensity (Out of 10): 2 Overall Improvement % Improvement: 40 Objective Objective/Function: Pt had increase L buttock pain lifting her leg into supine Lankle over the R knee but was able to stretch once got into that position. Pt had increase back pain with Prone to KELLY. 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 Thank you for the referral of thispatient. Sincerely, Debbie Palmer, THANIA Balance/Gait/Functional tests Balance/Special Test Scores Oswestry Low Back Score: 20 Improvement % Improvement: 40 08/15/24 1100 CC: DYNAMICS AX TECHNICAL ARCHITECT-C Emilee Mcclelland; Dr. Abram Cameron MD ~ Signed [facility]06-06-2025 Radiology Diagnostic study note [facility] Imaging Services [address] [place] [address] Shoulder min 2 Views MR#: [id number] Acct: [id number] Name: TINY MCCONNELL JO Rep #: [id number] : 1970 F 53 From: Atul Pavon MD PCP: BARRY Dobson Status: REG CLI Study:Shoulder min 2 Views Date of Exam: 08/11/24 Exam# [id number] Ordering Dr: Abram Cameron MD PROCEDURE: SHOULDER MIN 2 VIEWS 08/11/2024 REASON FOR EXAM: RIGHT SHOULDER PAIN TECHNIQUE: Four view right shoulder series. COMPARISON: None. RAD/Shoulder min 2 Views IMPRESSION: No significant arthritic process or joint space narrowing is seen. Satisfactory osseous alignment is present. No fracture, dislocation, or other significant osseous or joint space abnormality is seen. Reading Location: [id number] CC: DYNAMICS AX TECHNICAL ARCHITECT-Farzad Mcclelland; Dr. Abram Cameron MD ~ Grapple Operator: Signed [facility]05-19-2025 Consult note [facility] Medical Records Department [address] [place] [address] Anesthesia Postop Eval I 07/24/24 1209 MR#: [id number] Acct: [id number] Name: TINY MCCONNELL Rep #:[id number] : 1970 53 From: Pradeep GRAHAM PCP: BARRY Dobson Status:REG [facility] Y Race: C Location: [place] [address] Anesthesia: Postop Eval I Current Vital Signs Temperature: 97 F Pulse Rate: 61 Blood Pressure: 143/95 Respiratory Rate: 16 Pulse Ox: 99 Oxygen Delivery Method: Room Air Assessment Airway patent: Yes Spontaneous unlabored respirations: Yes Mental status: Awake and Calm nausea: No Vomiting: No Anesthesia Complication: No Fluid Hydration Crystalloid volume administer (ml): 200 Total IV fluid infused: 200 Progress Note Anesthesia document: Postop Eval 1 completed: Yes 07/24/24 1210 DERMATOLOGY PROCEDURAL PHYSICIAN> Date _ Pradeep Kent DERMATOLOGY PROCEDURAL PHYSICIAN Cosigner Signature: Date CC: ~ Signed [facility]05-19-2025 Procedure note [facility] Medical Records Department [address] [facility] [place] [address] Operative Report 07/24/24 1159 MR#: [id number] Acct: [id number] Name: TINY MCCONNELL Rep #:[id number] : 1970 53 From: Abram Cameron MD PCP: BARRY Dobson Status:REG [facility] Location: [place] [address] Operative Report (Standard) Operative Information Date of Procedure: 07/24/24 Pre-Operative Diagnosis: Lumbosacral radiculopathy, lumbosacral degenerative disc disease, lumbosacral spinal stenosis Post-Operative Diagnosis: Lumbosacral radiculopathy, lumbosacral degenerative disc disease, lumbosacral spinal stenosis Surgery/Procedure Performed: Diagnostic/therapeutic caudal epidural steroid injection under fluoroscopic guidance laboratory scientist: No Type of Anesthesia: Local MAC RN Documented Start/Stop Times: Operation Date: 07/24/24 11:55 Case Time Into Pre-Op 07/24/24 10:38 Anesthesia Start 07/24/24 11:35 Into Room 07/24/24 11:35 Procedure Start 07/24/24 11:38 Procedure End 07/24/24 11:43 Anesthesia End 07/24/24 11:46 Out of Room 07/24/24 11:46 Procedure Start Time: 11:59 Procedure Stop Time: 12:00 Select all DRAINS/GRAFTS/IMPLANTS that apply: None Estimated Blood Loss: 0 Specimen collected: No Description of surgery: History and physical of today was reviewed. Risks and benefits of the procedurewere explained. The patient understood and agreed to proceed. Informed consentwas obtained. IV inserted per routine protocol. The patient was taken to the operating room and placed in the prone position with a pillow positioned underneath the abdomen. The lower back and tailbone area was prepped and drapedin a sterile fashion using iodine x3. Under fluoroscopy guidance on a lateral view, the caudal space was identified. The skin and subcutaneous tissue was anesthetized with approximately 3 mL of 1% lidocaine using a 25-gauge regular needle. Under direct visualization with fluoroscopy, using a 22-gauge 3-1/2-inch spinal needle, the needle was advanced via the skin through the sacral hiatus. The tip of the needlewas passed through the sacrococcygeal ligament and advanced to approximately S4 area. After negative aspiration of blood or CSF, a total of 3 mL of contrast was injected to confirm correct placement of the needle as well as cephalad spread. The spread was followed to approximately L5 area. After confirmation on AP as well as lateral view and repeated negative aspiration, a total of 15 mL of preservative-free 0.125% Marcaine with 80 mg of Depo-Medrol was injected easily. The needle was then removed intact. The patient experienced no sign or symptoms of intrathecal or intravascular injection. The patient experienced no paresthesia. The procedurewas completed without any apparent difficulty orany complications. The patientappeared to tolerate it well. ASSESSMENT AND PLAN: This is a 53-year-old female with lumbosacral radiculopathy, lumbosacral degenerative disc disease,lumbosacral spinal stenosis status post diagnostic/therapeutic caudal epidural steroid injection under fluoroscopic guidance, patient will continue her current medications, patient will follow in approximately 2 weeks for reevaluation. Surgical Findings: 0 Complications Complications: No Admit VTE Documentation VTE Present on Admission: No VTE Mechan Device Prophylaxis: None VTE Pharm Prophylaxis ordered?: No 07/24/24 1200 Cosigner Signature (if applicable): CC: DYNAMICS AX TECHNICAL ARCHITECT-C Emilee Mcclelland; Dr. Abram Cameron MD~ Signed [facility]05-19-2025 Consult note [facility] Medical Records Department [address] [place] [address] Pre-Anesthesia Evaluation 07/24/24 1100 MR#: [id number] Acct: [id number] Name: TINY MCCONNELL Rep #:[id number] : 1970 53 From: Cameron Roman MD PCP: BARRY Dobson Status:REG [facility] Y Race: C Location: [place] [address]- ASA Classification* ASA Classification ASA Classification: 2 Assessment & Plan Anesthesia* Anesthesia Assessment Anesthesia Assessment: Discussed sedation and/or anesthesia options, risks, benefits, and alternatives with patient/parents/legal guardian/POA. Questions invited. The patient/parents/legal guardian/POA seems to understand and agrees to proceedwith anesthesia plan. Reviewed the physical assessment, medical history, allergy history and patient home medications list prior to surgery/procedure/anesthetic and documented any changes. Performed airway and anesthesia risk assessments. Anesthesia Type Anesthesia Type: MAC Anesthesia Focused Assessment* Airway Assessment Mouth opens: >3 cm Mallampati Score: II Focused Labs Anesthesia Preop lab: CBC WBC 4.8 K/mm3 (4.4-11.0) 07/19/23 14:02 07/19/23 RBC 4.53 M/mm3 (4.2-5.4) 07/19/23 14:02 07/19/23 Hgb 13.4 g/dL (12.0-15.0) 07/19/23 14:02 07/19/23 Hct 41.1 % (37-47) 07/19/23 14:02 07/19/23 Plt Count 197 K/mm3 (150-450) 07/19/23 14:02 07/19/23 CHEMISTRY Potassium 4.0 mmol/L (3.5-5.1) 07/19/23 14:02 07/19/23 Sodium 141 mmol/L (136-145) 07/19/23 14:02 07/19/23 Magnesium 1.8 mg/dL (1.8-2.4) 10/05/13 11:32 10/05/13 Phosphorus 3.0 mg/dL (2.5-4.9) 10/05/13 11:32 10/05/13 BUN 12 mg/dL (7-18) 07/19/23 14:02 07/19/23 Creatinine 0.85 mg/dL (0.55-1.02) 07/19/23 14:02 07/19/23 Glucose 79 mg/dL (74-106) 07/19/23 14:02 07/19/23 TSH 3.25 uIU/mL (0.358-3.74) 07/08/22 10:54 COAG Pre-Assessment Diagnosis/Proposed Procedure Planned Operative Procedure(s): Caudal block. Anesthesia History Anesthesia History - manual qa tester: Anesthesia History - manual qa tester Hx Hospitalization No 05/09/24 14:07 Any Problems With Anesthesia No 05/09/24 14:07 Cholinesterase deficiency No 05/09/24 14:07 You/Your Family Experience No 05/09/24 14:07 fever (hyperthermia) with Relationship Recent Exposure to Contagious No 05/22/24 09:07 Disease Does patient have nerve No 05/09/24 14:07 stimulator Patient instructed to have device shut off --Does patient have Pacemaker or ICD? When Was Last Pacemaker Check QUESTION #4 FULL TEXT: You/Your Family Experience fever (hyperthermia) with Anesthesia Last Oral Intake Last Oral intake: Last Oral Intake NPO since Meds taken in AM with sips of water? Meds patient instructed to take am of surgery PONV PONV - manual qa tester: PONV - manual qa tester Female HX of Motion Sickness HX of N/V After Surgery Non-Smoker Duration of Surgery greater than 60 minutes Number of Risk Factors PONV Score Height & Weight Height & Weight: Anesthesia: Height & Weight Height 5 ft 4 in 05/22/24 09:07 Respiratory Assessment Respiratory Assessment - manual qa tester: Respiratory Tract Infection Hx - manual qa tester Hx Respiratory Tract Infection No 05/09/24 14:07 STOP Sleep Apnea STOP Sleep Apnea - manual qa tester: STOP Sleep Apnea - manual qa tester Hx Hypertension No 07/18/24 12:05 Hx Sleep Apnea No 05/10/24 09:20 CPAP BIPAP Do you snore loudly (louder than talking or can be heard Do you often feel tired/ fatigued/ sleepy during daytime? Has anyone observed you stop breathing during sleep? STOP Results QUESTION #5 FULL TEXT : Do you snore loudly (louder than talking or can be heard through closeddoors)? 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 Specify any problems Hx of Preganancy in last 3 Months Nurse Filling Out Transfusion & Questions: Date: Time: Patient unable to answer at this time (ie. confused, unrespo /Reproduction History /Reproductive History - manual qa tester: /Reproductive Hx- manual qa tester Hx Now Gestational Age (in weeks): EDC: Hx Hx Para Hx Section SAB No 05/09/24 14:07 Active Medications Active Medications: Current Medications Generic Name Dose Route Start Last Admin Trade Name Freq PRN Reason Stop Dose Admin Lactated Ringer's 1,000 mls @ 15 mls/hr 07/24/24 10:45 IV .Q48H STAN PFSH Medical History Wears glasses Arthritis Low iron Migraine headache GERD (gastroesophageal reflux disease) Non-smoker HTN (hypertension) Depression Anxiety Contact dermatitis due to plant h/o ulnar nerve release Fibromyalgia Anemia Home Medications ?Medication ?Instructions ?Recorded ?Last Taken ?Type zolpidem 5 mg tablet (Ambien) 10 mg PO QHS 11/10/18 History oyzusek-kabcfuonvqcvk-zidanxuo 250 1 tab PO PRN 05/03/24 History mg-250 mg-65 mg tablet (Excedrin Migraine) ibuprofen 200 mg capsule 400 mg PO Q6H PRN pain 04/0305/22/24 History diphenhydramine HCl 25 mg capsule 25 mg PO QHS PRN all ergy symptoms 09/22/22 08/22/23 History (Benadryl) lisinopril 10 mg tablet 10 mg PO QHS 09/22/22 History ferrous sulfate 325 mg (65 mg 325 mg PO DAILY 08/17/23 05/21/24 History iron) tablet (Feosol) acyclovir 400 mg tablet 400 mg PO TID PRN cold sore 02/21/24 Unknown History bupropion HCl 150 mg 24 hr tablet, 450 mg PO QHS 02/2005/21/24 History extended release cholecalciferol (vitamin D3) 50 5,000 unit PO DAILY 05/21/24 History mcg (2,000 unit) capsule omega 9-nwt-wzd-fish oil 1,200 mg 1 cap PO DAILY 02/2005/21/24 History (144 mg-216 mg) capsule (Fish Oil) omeprazole 20 mg capsule,delayed 20 mg PO QHS PRN gerd 02/21/24 Unknown History release sumatriptan succinate 6 mg/0.5 mL 6 mg subcut Q1-4H AK N migraine 02/21/24 Unknown History subcutaneous cartridge (refill) headache tizanidine 2 mg capsule (Zanaflex) 4 mg PO Q8H PRN [place] spasticity 02/21/24 Unknown History tramadol 50 mg tablet 50 mg PO Q8H PRN pain Unknown History Allergy/AdvReac Type Severity Reaction Status Date / Time No Known Allergies Allergy Verified 07/24/24 10:59 Family History Father Diabetes Grandmother Colon cancer Paternal, In her 60's Surgical History H/O: hysterectomy History of gastric bypass History of hysterectomy History of carpal tunnel repair Hx of tonsillectomy History of Social History household members: spouse and children housing: house current occupation: [employer] Smoking Status: Never smoker alcohol intake: never substance use type: does not use do you feel safe at home: Yes Review of Systems (Anesthesia) ROS Narrative System reviewed and no additional complaints, except as documented. 07/24/24 1109 > Date _ [facility] Date CC: ~ Signed [facility]25 Radiology Diagnostic study note [facility] Imaging Services [address] [place] [address] L/S Spine w Bend Min 6 Vw MR#: [id number] Acct: [id number] Name: TINY MCCONNELL JO Rep #: [id number] : 1970 F 53 From: Dayday Garcia MD PCP: BARRY Dobson Status: REG CLI Study:L/S Spine w Bend Min 6 Vw Date of Exam: 06/14/24 Exam# [id number] Ordering Dr: Abram Cameron MD PROCEDURE: L/S SPINE W BEND MIN 6 VW 06/14/2024 REASON FOR EXAM: PAIN TECHNIQUE: 6 view(s) of the thoracic and lumbar spine. COMPARISON: None available FINDINGS: Curvature: Lordosis of the lumbar spine. Other findings: Vertebral body heights are well preserved. The intervertebral disc heights are wellpreserved. No overlying soft tissue swelling. Other: None RAD/L/S Spine w Bend Min 6 Vw IMPRESSION: No acute fracture or traumatic malalignment. Reading Location: [id number] CC: DYNAMICS AX TECHNICAL ARCHITECT-C Emilee Mcclelland; Dr. Abram Cameron MD ~ Grapple Operator: Signed [facility]03-17-2025 Consult note [facility] Medical Records Department [address] [place] [address] Anesthesia Postop Eval I 05/22/24 1029 MR#: [id number] Acct: [id number] Name: TINY MCCONNELL JO Rep #:[id number] : 1970 53 From: Kelly Wiseman CRNA PCP: KAVITA DobsonC Status:REG SDC Y Race: C Location: [place] [address] Anesthesia: Postop Eval I Current Vital Signs Temperature: 97.6 F Pulse Rate: 68 Blood Pressure: 118/79 Respiratory Rate: 18 Pulse Ox: 99 Oxygen Delivery Method: Room Air Assessment Airway patent: Yes Spontaneous unlabored respirations: Yes Mental status: Awake nausea: No Vomiting: No Anesthesia Complication: No Fluid Hydration Crystalloid volume administer (ml): 10 Total IV fluid infused: 10 Progress Note Anesthesia document: Postop Eval 1 completed: Yes 05/22/24 1030 c DERMATOLOGY PROCEDURAL PHYSICIAN> Date _ Kelly Wiseman DERMATOLOGY PROCEDURAL PHYSICIAN Cosigner Signature: Date CC: ~ Signed [facility]03-17-2025 [facility] Records Department [address] [place] [address] Operative Report 05/22/24 1022 MR#: [id number] Acct: [id number] Name: TINY MCCONNELL Rep #:[id number] : 1970 53 From: Abram Cameron MD PCP: Emilee Mcclelland DYNAMICS AX TECHNICAL ARCHITECT-C Status:REG [facility] Location: [place] [address] Operative Report (Standard) Operative Information Date of Procedure: 05/22/24 Pre-Operative Diagnosis: Cervical spondylosis, cervical facet arthropathy, cervical degenerative disc disease Post-Operative Diagnosis: Cervical spondylosis, cervical degenerative disc disease, cervical facet arthropathy Surgery/Procedure Performed: Right-sided cervical facet steroid injection C4-5, C5-6, C6-7 laboratory scientist: No Type of Anesthesia: Local MAC RN Documented Start/Stop Times: Operation Date: 05/22/24 10:00 Case Time Into Pre-Op 05/22/24 09:07 Anesthesia Start 05/22/24 10:11 Into Room 05/22/24 10:11 Out of Pre-Op 05/22/24 10:11 Procedure Start 05/22/24 10:16 Procedure End 05/22/24 10:18 Procedure Start Time: 10:22 Procedure Stop Time: 10:22 Select all DRAINS/GRAFTS/IMPLANTS that apply: None Estimated Blood Loss: 0 Specimen collected: No Description of surgery: ANESTHESIA: MAC. BLOOD LOSS: Minimal. COMPLICATIONS: None. DESCRIPTION OF PROCEDURE: History and physical of today was reviewed. Risks and benefits of the procedure were explained. The patient understood and agreedto proceed. Informed consent was obtained. IV inserted per routine protocol. The patient was taken to the operating room and placed in the proneposition with a pillow positioned underneath the chest. The neck area was prepped and draped in a sterile fashion using iodine x3. Under fluoroscopy guidance on an AP view, the C4 through C7 vertebral bodies were visualized at approximately 10-degree angle, starting on the right C4, ending on the right C7, passing through the C5 and C6. Using a 25-gauge 3-1/2-inch spinal needle, the needle was advanced via the skin. The tip of the needle was maneuvered and directed towards the epiphyseal junction of each corresponding vertebra. Once the tip ofthe needle was at the vicinity of the medial branch, the needle was pulled approximately 2 mm off the bone. After negative aspiration of blood or CSF and confirmation on AP, oblique as well as lateral view, a total of 4 mL of preservative-free 0.25% Marcaine with 80 mg of Depo-Medrol was injected in divided doses between those four levels. The needles were then removed intact. The patient experienced no sign or symptoms of intrathecal or intravascular injection. The patient experienced no paresthesia. The procedure was completedwithout any apparent difficulty or any complications. The patient appeared to tolerate it well. ASSESSMENT AND PLAN: This is a 53-year-old female with cervical spondylosis, cervical degenerative disc disease, cervical facet arthropathy, status post right-sided cervical facetsteroid injection C4-C7, patient will continue her current medications, patient will follow-up in approximately 1 to 2 weeks for reevaluation. Surgical Findings: 0 Complications Complications: No Admit VTE Documentation VTE Present on Admission: No VTE Mechan Device Prophylaxis: None VTE Pharm Prophylaxis ordered?: No 05/22/24 1024 Cosigner Signature (if applicable): CC: DYNAMICS AX TECHNICAL ARCHITECT-Farzad Mcclelland; Dr. Abram Cameron MD~ Signed [facility]03-17-2025 Consult note [facility] Medical Records Department [address] [place] [address] Pre-Anesthesia Evaluation 05/22/24 1007 MR#: [id number] Acct: [id number] Name: TINY MCCONNELL Rep #:[id number] : 1970 53 From: Sulema Will PCP: BARRY Dobson Status:REG [facility] Y Race: C Location: [place] [address] ASA Classification* ASA Classification ASA Classification: 2 Assessment & Plan Anesthesia* Anesthesia Assessment Anesthesia Assessment: Discussed sedation and/or anesthesia options, risks, benefits, and alternatives with patient/parents/legal guardian/POA. Questions invited. The patient/parents/legal guardian/POA seems to understand and agrees to proceedwith anesthesia plan. Reviewed the physical assessment, medical history, allergy history and patient home medications list prior to surgery/procedure/anesthetic and documented any changes. Performed airway and anesthesia risk assessments. Anesthesia Type Anesthesia Type: MAC Anesthesia Focused Assessment* Temperature: 98.7 F Pulse Rate: 64 Blood Pressure: 135/84 Respiratory Rate: 17 Pulse Ox: 100 Oxygen Delivery Method: Room Air Airway Assessment Mouth opens: >3 cm Mallampati Score: II Teeth Condition: Intact Neck Range of motion (ROM): Full ROM Focused Labs Anesthesia Preop lab: CBC WBC 4.8 K/mm3 (4.4-11.0) 07/19/23 14:02 07/19/23 RBC 4.53 M/mm3 (4.2-5.4) 07/19/23 14:02 07/19/23 Hgb 13.4 g/dL (12.0-15.0) 07/19/23 14:02 07/19/23 Hct 41.1 % (37-47) 07/19/23 14:02 07/19/23 Plt Count 197 K/mm3 (150-450) 07/19/23 14:02 07/19/23 CHEMISTRY Potassium 4.0 mmol/L (3.5-5.1) 07/19/23 14:02 07/19/23 Sodium 141 mmol/L (136-145) 07/19/23 14:02 07/19/23 Magnesium 1.8 mg/dL (1.8-2.4) 10/05/13 11:32 10/05/13 Phosphorus 3.0 mg/dL (2.5-4.9) 10/05/13 11:32 10/05/13 BUN 12 mg/dL (7-18) 07/19/23 14:02 07/19/23 Creatinine 0.85 mg/dL (0.55-1.02) 07/19/23 14:02 07/19/23 Glucose 79 mg/dL (74-106) 07/19/23 14:02 07/19/23 TSH 3.25 uIU/mL (0.358-3.74) 07/08/22 10:54 COAG Pre-Assessment Diagnosis/Proposed Procedure Planned Operative Procedure(s): RIGHT sided cervical facet steroid injection C4,5,6,7 under flouroscopy Anesthesia History Anesthesia History - manual qa tester: Anesthesia History - manual qa tester Hx Hospitalization No 05/09/24 14:07 Any Problems With Anesthesia No 05/09/24 14:07 Cholinesterase deficiency No 05/09/24 14:07 You/Your Family Experience No 05/09/24 14:07 fever (hyperthermia) with Relationship Recent Exposure to Contagious No 05/22/24 09:07 Disease Does patient have nerve No 05/09/24 14:07 stimulator Patient instructed to have device shut off --Does patient have Pacemaker No 05/22/24 09:07 or ICD? When Was Last Pacemaker Check QUESTION #4 FULL TEXT: You/Your Family Experience fever (hyperthermia) with Anesthesia Last Oral Intake Last Oral intake: Last Oral Intake NPO since 00:00 05/22/24 09:07 Meds taken in AM with sips of No 05/22/24 09:07 water? Meds patient instructed to take am of surgery PONV PONV - manual qa tester: PONV - manual qa tester Female HX of Motion Sickness HX of N/V After Surgery Non-Smoker Duration of Surgery greater than 60 minutes Number of Risk Factors PONV Score Height & Weight Height & Weight: Anesthesia: Height & Weight Height 5 ft 4 in 05/22/24 09:07 Weight: 95.2 kg 05/22/24 09:07 Body Mass Index (BMI) 36.0 05/22/24 09:07 Respiratory Assessment Respiratory Assessment - manual qa tester: Respiratory Tract Infection Hx - manual qa tester Hx Respiratory Tract Infection No 05/09/24 14:07 STOP Sleep Apnea STOP Sleep Apnea - manual qa tester: STOP Sleep Apnea - manual qa tester Hx Hypertension No 05/09/24 14:07 Hx Sleep Apnea No 05/10/24 09:20 CPAP BIPAP Do you snore loudly (louder than talking or can be heard Do you often feel tired/ fatigued/ sleepy during daytime? Has anyone observed you stop breathing during sleep? STOP Results QUESTION #5 FULL TEXT : Do you snore loudly (louder than talking or can be heard through closeddoors)? 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 Specify any problems Hx of Preganancy in last 3 Months Nurse Filling Out Transfusion & Questions: Date: Time: Patient unable to answer at this time (ie. confused, unrespo /Reproduction History /Reproductive History - manual qa tester: /Reproductive Hx- manual qa tester Hx Now Gestational Age (in weeks): EDC: Hx Hx Para Hx Section SAB No 05/09/24 14:07 PFSH Medical History Wears glasses Arthritis Low iron Migraine headache GERD (gastroesophageal reflux disease) Non-smoker HTN (hypertension) Depression Anxiety Contact dermatitis due to plant h/o ulnar nerve release Fibromyalgia Anemia Home Medications ?Medication ?Instructions ?Recorded ?Last Taken ?Type zolpidem 5 mg tablet (Ambien) 10 mg PO QHS 11/10/18 History qgqddrv-aobhoadyxltfu-yxcqztbi 250 1 tab PO PRN 05/03/24 History mg-250 mg-65 mg tablet (Excedrin Migraine) ibuprofen 200 mg capsule 400 mg PO Q6H PRN pain 04/0305/22/24 History diphenhydramine HCl 25 mg capsule 25 mg PO QHS PRN all ergy symptoms 09/22/22 08/22/23 History (Benadryl) lisinopril 10 mg tablet 10 mg PO QHS 09/22/22 History ferrous sulfate 325 mg (65 mg 325 mg PO DAILY 08/17/23 05/21/24 History iron) tablet (Feosol) acyclovir 400 mg tablet 400 mg PO TID PRN cold sore 02/21/24 Unknown History bupropion HCl 150 mg 24 hr tablet, 450 mg PO QHS 02/2005/21/24 History extended release cholecalciferol (vitamin D3) 50 5,000 unit PO DAILY 05/21/24 History mcg (2,000 unit) capsule omega 6-omw-zyb-fish oil 1,200 mg 1 cap PO DAILY 02/2005/21/24 History (144 mg-216 mg) capsule (Fish Oil) omeprazole 20 mg capsule,delayed 20 mg PO QHS PRN gerd 02/21/24 Unknown History release sumatriptan succinate 6 mg/0.5 mL 6 mg subcut Q1-4H AK N migraine 02/21/24 Unknown History subcutaneous cartridge (refill) headache tizanidine 2 mg capsule (Zanaflex) 4 mg PO Q8H PRN mus lacie spasticity 02/21/24 Unknown History tramadol 50 mg tablet 50 mg PO Q8H PRN pain Unknown History Allergy/AdvReac Type Severity Reaction Status Date / Time No Known Allergies Allergy Verified 05/22/24 09:04 Family History Father Diabetes Grandmother Colon cancer Paternal, In her 60's Surgical History H/O: hysterectomy History of gastric bypass History of hysterectomy History of carpal tunnel repair Hx of tonsillectomy History of Social History household members: spouse and children housing: house current occupation: [employer] Smoking Status: Never smoker alcohol intake: never substance use type: does not use do you feel safe at home: Yes Review of Systems (Anesthesia) ROS Narrative System reviewed and no additional complaints, except as documented. 05/22/24 1009 a> Date _ Sulema Owen Signature: Date CC: ~ Signed [facility]03-05-[facility]25 Evaluation note* Diagnosis Onset Date Resolution Status Admit Date Encounter for screening for malignant neoplasm of colon acute Nuno h 2024 7:47am [facility] Work Phone: [phone] 872-549303-05-2025 [facility] Medical Records Department [address] [place] [address] History Physical Exam 05/10/2430 MR#: [id number] Acct: [id number] Name: TINY MCCONNELL Rep #: [id number] : 1970 53 From: Tico Hernandez DO PCP: BARRY Dobson Status:REG [facility] Location: [place] [address] HPI - General General Date of Admission: 05/10/24 Date of Service: 05/10/24 Chief Complaint: Screening colon HPI Narrative TINY MCCONNELL, is a 53 F who presents today for her first colonoscopy. She is having a colonoscopy in the past. She has a past medical history of mild hypertension, GERD and mild depression. All of those are controlled with medications. [facility] Medical History Wears glasses Arthritis Low iron Migraine headache GERD (gastroesophageal reflux disease) Non-smoker HTN (hypertension) Depression Anxiety Contact dermatitis due to plant h/o ulnar nerve release Fibromyalgia Anemia Home Medications ???Medication ???Instructions ???Recorded ???Last Taken ???Type zolpidem 5 mg tablet (Ambien) 10 mg PO QHS 11/10/18 02/20/24 His tory yawvdgy-tmbvuhysfkpez-ayzenuru 250 1 tab PO PRN 04/03/20 05/03/24 H istory mg-250 mg-65 mg tablet (Excedrin Migraine) ibuprofen 200 mg capsule 200 mg PO Q6H PRN pain 04/03/20 History diphenhydramine HCl 25 mg capsule 25 mg PO QHS PRN allergy symptoms 09/22/22 08/22/23 History (Benadryl) lisinopril 10 mg tablet 10 mg PO QHS 09/22/22 02/20/24 His tory ferrous sulfate 325 mg (65 mg 325 mg PO DAILY 08/17/23 05/03/24 History iron) tablet (Feosol) acyclovir 400 mg tablet 400 mg PO TID PRN cold sore Unknown History bupropion HCl 150 mg 24 hr tablet, 450 mg PO QHS 02/21/24 Unknown H istory extended release cholecalciferol (vitamin D3) 50 5,000 unit PO DAILY 02/21/24 Unkno wn History mcg (2,000 unit) capsule omega 7-icb-upj-fish oil 1,200 mg 1 cap PO DAILY 02/21/24 05/03/24 History (144 mg-216 mg) capsule (Fish Oil) omeprazole 20 mg capsule,delayed 20 mg PO QHS PRN gerd 02/21/24 Unk nown History release sumatriptan succinate 6 mg/0.5 mL 6 mg subcut Q1-4H PRN migraine Unknown History subcutaneous cartridge (refill) headache tizanidine 2 mg capsule (Zanaflex) 4 mg PO Q8H PRN muscle spasticit y 02/21/24 Unknown History tramadol 50 mg tablet 50 mg PO Q8H PRN pain 02/21/24 Unk nown History Allergy/AdvReac Type Severity Reaction Status Date / Time No Known Allergies Allergy Verified 05/10/24 08:02 Family History Father Diabetes Grandmother Colon cancer Paternal, In her 60's Surgical History H/O: hysterectomy History of gastric bypass History of hysterectomy History of carpal tunnel repair Hx of tonsillectomy History of Social History household members: spouse and children housing: house current occupation: [employer] Smoking Status: Never smoker alcohol intake: never substance use type: does not use do you feel safe at home: Yes ROS Constitutional Constitutional: Denies fatigue, fever(s), poor appetite, weight gain or weight loss Gastrointestinal Gastrointestinal: Denies belching, bloating, change in bowel habits, change in stool character, chewing difficulty, coffee ground emesis, constipation, cramping, diarrhea, dyspepsia, dysphagia, early satiety, excessive flatus, fecal incontinence, heartburn, hematemesis, hematochezia, hemorrhoids, loose stools, melena, nausea, odynophagia, rectal bleeding, tenesmus, vomiting or weight changes Vital Signs Vital Signs Vital Signs: 05/10/24 08:04 05/10/24 08:04 05/10/24 08:11 Temperature 98 F 98 F Temperature Source Temporal Pulse Rate 78 78 Respiratory Rate 16 16 Respiratory Pattern Irregular Blood Pressure 160/98 H 160/98 H Blood Pressure Mean 118 Blood Pressure Source Monitor Blood Pressure Position Semi-Fowlers Blood Pressure Location Right Arm Pulse Ox 100 100 Oxygen Delivery Method Room Air Weight Weight: 202 lb 13.204 oz Body Mass Index (BMI) 34.8 Physical Exam Const alert, oriented x3, no apparent distress and healthy appearing General Appearance: cooperative GI normal to inspection, nondistended, normoactive bowel sounds, soft to palpation, non-tender and non- distended Percussion: normal to percussion Rectal Exam: deferred Assessment Plan Assessment/Plan (1) Encounter for screening for malignant neoplasm of colon: PLAN: She was explained alternatives, benefits, risk including not withstanding bleeding, infection, sepsis, perforation, need for (more content not included)...[facility] Sulema Will [facility] Note Date/Time May 22, 2024 10: 09am [facility] Medical Records Department [address] [place] [address] Pre-Anesthesia Evaluation 05/22/24 1007 MR#: [id number] Acct: [id number] Name: ENEDINAFATMATA Rep #:[id number] : 1970 53 From: Sulema Will PCP: BARRY Dobson Status:REG SDC Y Race: C Location: [place] [address] ASA Classification* ASA Classification ASA Classification: 2 Assessment & Plan Anesthesia* Anesthesia Assessment Anesthesia Assessment: Discussed sedation and/or anesthesia options, risks, benefits, and alternatives with patient/parents/legal guardian/POA. Questions invited. The patient/parents/legal guardian/POA seems to understand and agrees to proceedwith anesthesia plan. Reviewed the physical assessment, medical history, allergy history and patient home medications list prior to surgery/procedure/anesthetic and documented any changes. Performed airway and anesthesia risk assessments. Anesthesia Type Anesthesia Type: MAC Anesthesia Focused Assessment* Temperature: 98.7 F Pulse Rate: 64 Blood Pressure: 135/84 Respiratory Rate: 17 Pulse Ox: 100 Oxygen Delivery Method: Room Air Airway Assessment Mouth opens: >3 cm Mallampati Score: II Teeth Condition: Intact Neck Range of motion (ROM): Full ROM Focused Labs Anesthesia Preop lab: CBC WBC 4.8 K/mm3 (4.4-11.0) 07/19/23 14:02 07/19/23 RBC 4.53 M/mm3 (4.2-5.4) 07/19/23 14:02 07/19/23 Hgb 13.4 g/dL (12.0-15.0) 07/19/23 14:02 07/19/23 Hct 41.1 % (37-47) 07/19/23 14:02 07/19/23 Plt Count 197 K/mm3 (150-450) 07/19/23 14:02 07/19/23 CHEMISTRY Potassium 4.0 mmol/L (3.5-5.1) 07/19/23 14:02 07/19/23 Sodium 141 mmol/L (136-145) 07/19/23 14:02 07/19/23 Magnesium 1.8 mg/dL (1.8-2.4) 10/05/13 11:32 10/05/13 Phosphorus 3.0 mg/dL (2.5-4.9) 10/05/13 11:32 10/05/13 BUN 12 mg/dL (7-18) 07/19/23 14:02 07/19/23 Creatinine 0.85 mg/dL (0.55-1.02) 07/19/23 14:02 07/19/23 Glucose 79 mg/dL (74-106) 07/19/23 14:02 07/19/23 TSH 3.25 uIU/mL (0.358-3.74) 07/08/22 10:54 COAG Pre-Assessment Diagnosis/Proposed Procedure Planned Operative Procedure(s): RIGHT sided cervical facet steroid injection C4,5,6,7 under flouroscopy Anesthesia History Anesthesia History - manual qa tester: Anesthesia History - manual qa tester Hx Hospitalization No 05/09/24 14:07 Any Problems With Anesthesia No 05/09/24 14:07 Cholinesterase deficiency No 05/09/24 14:07 You/Your Family Experience No 05/09/24 14:07 fever (hyperthermia) with Relationship Recent Exposure to Contagious No 05/22/24 09:07 Disease Does patient have nerve No 05/09/24 14:07 stimulator Patient instructed to have device shut off --Does patient have Pacemaker No 05/22/24 09:07 or ICD? When Was Last Pacemaker Check QUESTION #4 FULL TEXT: You/Your Family Experience fever (hyperthermia) with Anesthesia Last Oral Intake Last Oral intake: Last Oral Intake NPO since 00:00 05/22/24 09:07 Meds taken in AM with sips of No 05/22/24 09:07 water? Meds patient instructed to take am of surgery PONV PONV - manual qa tester: PONV - manual qa tester Female HX of Motion Sickness HX of N/V After Surgery Non-Smoker Duration of Surgery greater than 60 minutes Number of Risk Factors PONV Score Height & Weight Height & Weight: Anesthesia: Height & Weight Height 5 ft 4 in 05/22/24 09:07 Weight: 95.2 kg 05/22/24 09:07 Body Mass Index (BMI) 36.0 05/22/24 09:07 Respiratory Assessment Respiratory Assessment - manual qa tester: Respiratory Tract Infection Hx - manual qa tester Hx Respiratory Tract Infection No 05/09/24 14:07 STOP Sleep Apnea STOP Sleep Apnea - manual qa tester: STOP Sleep Apnea - manual qa tester Hx Hypertension No 05/09/24 14:07 Hx Sleep Apnea No 05/10/24 09:20 CPAP BIPAP Do you snore loudly (louder than talking or can be heard Do you often feel tired/ fatigued/ sleepy during daytime? Has anyone observed you stop breathing during sleep? STOP Results QUESTION #5 FULL TEXT : Do you snore loudly (louder than talking or can be heard through closed doors)? 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 Specify any problems Hx of Preganancy in last 3 Months Nurse Filling Out Transfusion & Questions: Date: Time: Patient unable to answer at this time (ie. confused, unrespo /Reproduction History /Reproductive History - manual qa tester: /Reproductive Hx- manual qa tester Hx Now Gestational Age (in weeks): EDC: Hx Hx Para Hx Section SAB No 05/09/24 14:07 PFSH Medical History Wears glasses Arthritis Low iron Migraine headache GERD (gastroesophageal reflux disease) Non-smoker HTN (hypertension) Depression Anxiety Contact dermatitis due to plant h/o ulnar nerve release Fibromyalgia Anemia Home Medications ?Medication ?Instructions ?Recorded ?Last Taken ?Type zolpidem 5 mg tablet (Ambien) 10 mg PO QHS 11/10/18 History pvrgyqr-qdhutuhopadmm-opddrqwu 250 1 tab PO PRN 05/03/24 History mg-250 mg-65 mg tablet (Excedrin Migraine) ibuprofen 200 mg capsule 400 mg PO Q6H PRN pain 04/0305/22/24 History diphenhydramine HCl 25 mg capsule 25 mg PO QHS PRN all ergy symptoms 09/22/22 08/22/23 History (Benadryl) lisinopril 10 mg tablet 10 mg PO QHS 09/22/22 History ferrous sulfate 325 mg (65 mg 325 mg PO DAILY 08/17/23 05/21/24 History iron) tablet (Feosol) acyclovir 400 mg tablet 400 mg PO TID PRN cold sore 02/21/24 Unknown History bupropion HCl 150 mg 24 hr tablet, 450 mg PO QHS 02/2005/21/24 History extended release cholecalciferol (vitamin D3) 50 5,000 unit PO DAILY 05/21/24 History mcg (2,000 unit) capsule omega 3-hma-fax-fish oil 1,200 mg 1 cap PO DAILY 02/2005/21/24 History (144 mg-216 mg) capsule (Fish Oil) omeprazole 20 mg capsule,delayed 20 mg PO QHS PRN gerd 02/21/24 Unknown History release sumatriptan succinate 6 mg/0.5 mL 6 mg subcut Q1-4H AK N migraine 02/21/24 Unknown History subcutaneous cartridge (refill) headache tizanidine 2 mg capsule (Zanaflex) 4 mg PO Q8H PRN mus lacie spasticity 02/21/24 Unknown History tramadol 50 mg tablet 50 mg PO Q8H PRN pain Unknown History Allergy/AdvReac Type Severity Reaction Status Date / Time No Known Allergies Allergy Verified 05/22/24 09:04 Family History Father Diabetes Grandmother Colon cancer Paternal, In her 60's Surgical History H/O: hysterectomy History of gastric bypass History of hysterectomy History of carpal tunnel repair Hx of tonsillectomy History of Social History household members: spouse and children housing: house current occupation: [employer] Smoking Status: Never smoker alcohol intake: never substance use type: does not use do you feel safe at home: Yes Review of Systems (Anesthesia) ROS Narrative System reviewed and no additional complaints, except as documented. 05/22/24 1009 <Electronically signed by Sulema james> Date _ Sulema Owen Signature: Date CC: ~ Signed [facility] Work Phone: Consult note Author Kelly Wiseman [facility] Note Date/Time May 22, 2024 10: 30am [facility] Medical Records Department [address] [place] [address] Anesthesia Postop Eval I 05/22/24 1029 MR#: [id number] Acct: [id number] Name: TINY MCCONNELL Rep #:[id number] : 1970 53 From: Kelly Wiseman CRNA PCP: BARRY Dobson Status:REG SDC Y Race: C Location: [place] [address] Anesthesia: Postop Eval I Current Vital Signs Temperature: 97.6 F Pulse Rate: 68 Blood Pressure: 118/79 Respiratory Rate: 18 Pulse Ox: 99 Oxygen Delivery Method: Room Air Assessment Airway patent: Yes Spontaneous unlabored respirations: Yes Mental status: Awake nausea: No Vomiting: No Anesthesia Complication: No Fluid Hydration Crystalloid volume administer (ml): 10 Total IV fluid infused: 10 Progress Note Anesthesia document: Postop Eval 1 completed: Yes 05/22/24 1030 <Electronically signed by Kelly newton DERMATOLOGY PROCEDURAL PHYSICIAN> Date _ Kelly Wiseman DERMATOLOGY PROCEDURAL PHYSICIAN Cosigner Signature: Date CC: ~ Signed [facility] Work Phone: Consult note Author Cameron Roman [facility] Note Date/Time July 24, 2024 11:09 am [facility] Medical Records Department [address] [place] [address] Pre-Anesthesia Evaluation 07/24/24 1100 MR#: [id number] Acct: [id number] Name: TINY MCCONNELL JO Rep #:[id number] : 1970 53 From: Cameron Roman MD PCP: BARRY Dobson Status:REG [facility] Y Race: C Location: [place] [address] ASA Classification* ASA Classification ASA Classification: 2 Assessment & Plan Anesthesia* Anesthesia Assessment Anesthesia Assessment: Discussed sedation and/or anesthesia options, risks, benefits, and alternatives with patient/parents/legal guardian/POA. Questions invited. The patient/parents/legal guardian/POA seems to understand and agrees to proceedwith anesthesia plan. Reviewed the physical assessment, medical history, allergy history and patient home medications list prior to surgery/procedure/anesthetic and documented any changes. Performed airway and anesthesia risk assessments. Anesthesia Type Anesthesia Type: MAC Anesthesia Focused Assessment* Airway Assessment Mouth opens: >3 cm Mallampati Score: II Focused Labs Anesthesia Preop lab: CBC WBC 4.8 K/mm3 (4.4-11.0) 07/19/23 14:02 07/19/23 RBC 4.53 M/mm3 (4.2-5.4) 07/19/23 14:02 07/19/23 Hgb 13.4 g/dL (12.0-15.0) 07/19/23 14:02 07/19/23 Hct 41.1 % (37-47) 07/19/23 14:02 07/19/23 Plt Count 197 K/mm3 (150-450) 07/19/23 14:02 07/19/23 CHEMISTRY Potassium 4.0 mmol/L (3.5-5.1) 07/19/23 14:02 07/19/23 Sodium 141 mmol/L (136-145) 07/19/23 14:02 07/19/23 Magnesium 1.8 mg/dL (1.8-2.4) 10/05/13 11:32 10/05/13 Phosphorus 3.0 mg/dL (2.5-4.9) 10/05/13 11:32 10/05/13 BUN 12 mg/dL (7-18) 07/19/23 14:02 07/19/23 Creatinine 0.85 mg/dL (0.55-1.02) 07/19/23 14:02 07/19/23 Glucose 79 mg/dL (74-106) 07/19/23 14:02 07/19/23 TSH 3.25 uIU/mL (0.358-3.74) 07/08/22 10:54 COAG Pre-Assessment Diagnosis/Proposed Procedure Planned Operative Procedure(s): Caudal block. Anesthesia History Anesthesia History - manual qa tester: Anesthesia History - manual qa tester Hx Hospitalization No 05/09/24 14:07 Any Problems With Anesthesia No 05/09/24 14:07 Cholinesterase deficiency No 05/09/24 14:07 You/Your Family Experience No 05/09/24 14:07 fever (hyperthermia) with Relationship Recent Exposure to Contagious No 05/22/24 09:07 Disease Does patient have nerve No 05/09/24 14:07 stimulator Patient instructed to have device shut off --Does patient have Pacemaker or ICD? When Was Last Pacemaker Check QUESTION #4 FULL TEXT: You/Your Family Experience fever (hyperthermia) with Anesthesia Last Oral Intake Last Oral intake: Last Oral Intake NPO since Meds taken in AM with sips of water? Meds patient instructed to take am of surgery PONV PONV - manual qa tester: PONV - manual qa tester Female HX of Motion Sickness HX of N/V After Surgery Non-Smoker Duration of Surgery greater than 60 minutes Number of Risk Factors PONV Score Height & Weight Height & Weight: Anesthesia: Height & Weight Height 5 ft 4 in 05/22/24 09:07 Respiratory Assessment Respiratory Assessment - manual qa tester: Respiratory Tract Infection Hx - manual qa tester Hx Respiratory Tract Infection No 05/09/24 14:07 STOP Sleep Apnea STOP Sleep Apnea - manual qa tester: STOP Sleep Apnea - manual qa tester Hx Hypertension No 07/18/24 12:05 Hx Sleep Apnea No 05/10/24 09:20 CPAP BIPAP Do you snore loudly (louder than talking or can be heard Do you often feel tired/ fatigued/ sleepy during daytime? Has anyone observed you stop breathing during sleep? STOP Results QUESTION #5 FULL TEXT : Do you snore loudly (louder than talking or can be heard through closed doors)? 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 Specify any problems Hx of Preganancy in last 3 Months Nurse Filling Out Transfusion & Questions: Date: Time: Patient unable to answer at this time (ie. confused, unrespo /Reproduction History /Reproductive History - manual qa tester: /Reproductive Hx- manual qa tester Hx Now Gestational Age (in weeks): EDC: Hx Hx Para Hx Section SAB No 05/09/24 14:07 Active Medications Active Medications: Current Medications Generic Name Dose Route Start Last Admin Trade Name Freq PRN Reason Stop Dose Admin Lactated Ringer's 1,000 mls @ 15 mls/hr 05/19/25 10:45 IV .Q48H STAN PFSH Medical History Wears glasses Arthritis Low iron Migraine headache GERD (gastroesophageal reflux disease) Non-smoker HTN (hypertension) Depression Anxiety Contact dermatitis due to plant h/o ulnar nerve release Fibromyalgia Anemia Home Medications ?Medication ?Instructions ?Recorded ?Last Taken ?Type zolpidem 5 mg tablet (Ambien) 10 mg PO QHS 11/10/18 History sksgwsz-afwxtdjlyyjst-djzkyqjf 250 1 tab PO PRN 05/03/24 History mg-250 mg-65 mg tablet (Excedrin Migraine) ibuprofen 200 mg capsule 400 mg PO Q6H PRN pain 04/0305/22/24 History diphenhydramine HCl 25 mg capsule 25 mg PO QHS PRN all ergy symptoms 09/22/22 08/22/23 History (Benadryl) lisinopril 10 mg tablet 10 mg PO QHS 09/22/22 History ferrous sulfate 325 mg (65 mg 325 mg PO DAILY 08/17/23 05/21/24 History iron) tablet (Feosol) acyclovir 400 mg tablet 400 mg PO TID PRN cold sore 02/21/24 Unknown History bupropion HCl 150 mg 24 hr tablet, 450 mg PO QHS 02/2005/21/24 History extended release cholecalciferol (vitamin D3) 50 5,000 unit PO DAILY 05/21/24 History mcg (2,000 unit) capsule omega 8-mad-qmg-fish oil 1,200 mg 1 cap PO DAILY 02/2005/21/24 History (144 mg-216 mg) capsule (Fish Oil) omeprazole 20 mg capsule,delayed 20 mg PO QHS PRN gerd 02/21/24 Unknown History release sumatriptan succinate 6 mg/0.5 mL 6 mg subcut Q1-4H AK N migraine 02/21/24 Unknown History subcutaneous cartridge (refill) headache tizanidine 2 mg capsule (Zanaflex) 4 mg PO Q8H PRN [place] spasticity 02/21/24 Unknown History tramadol 50 mg tablet 50 mg PO Q8H PRN pain Unknown History Allergy/AdvReac Type Severity Reaction Status Date / Time No Known Allergies Allergy Verified 07/24/24 10:59 Family History Father Diabetes Grandmother Colon cancer Paternal, In her 60's Surgical History H/O: hysterectomy History of gastric bypass History of hysterectomy History of carpal tunnel repair Hx of tonsillectomy History of Social History household members: spouse and children housing: house current occupation: [employer] Smoking Status: Never smoker alcohol intake: never substance use type: does not use do you feel safe at home: Yes Review of Systems (Anesthesia) ROS Narrative System reviewed and no additional complaints, except as documented. 07/24/24 1109 <Electronically signed by Cameron Roman MD > Date _ Cameron Roman MD Cosigner Signature: Date CC: ~ Signed [facility] Work Phone: Consult note Author Pradeep Kent [facility] Note Date/Time July 24, 2024 12:10 pm [facility] Medical Records Department [address] [place] [id number] Anesthesia Postop Eval I 07/24/24 1209 MR#: [id number] Acct: [id number] Name: TINY MCCONNELL Rep #:[id number] : 1970 53 From: Pradeep GRAHAM PCP: BARRY Dobson Status:REG SDC Y Race: C Location: [place] [address] Anesthesia: Postop Eval I Current Vital Signs Temperature: 97 F Pulse Rate: 61 Blood Pressure: 143/95 Respiratory Rate: 16 Pulse Ox: 99 Oxygen Delivery Method: Room Air Assessment Airway patent: Yes Spontaneous unlabored respirations: Yes Mental status: Awake and Calm nausea: No Vomiting: No Anesthesia Complication: No Fluid Hydration Crystalloid volume administer (ml): 200 Total IV fluid infused: 200 Progress Note Anesthesia document: Postop Eval 1 completed: Yes 07/24/24 1210 <Electronically signed by Pradeep Kent CRNA> Date _ Pradeep Kent CRNA Cosigner Signature: Date CC: ~ Signed [facility] Work Phone: Evaluation noteNo assessment information available [facility] Work Phone: Reason for referral (narrative)No reason for referral information availableWAultman [facility] Work Phone: Chief Complaint and Reason for Visit Chief Complaint Admit Date Pain June 14, 2024 2:36 pm BACK PAIN. RX HERE July 21, 2024 9:30a m Reason for Visit Admit Date Encounter for screening for malignant ne oplasm of colon May 10, 2024 7:47am Chief Complaint Admit Date Amb Documentation February 21, 2024 9:41am Pain June 14, 2024 2:36 pm Chief Complaint SCREENING Chief Complaint Admit Date Amb Documentation February 21, 2024 9:41am Chief Complaint Admit Date Pain June 14, 2024 2:36 pm RIGHT SHOULDER PAIN August 11, 2024 2:24p m BACK PAIN. RX HERE August 15, 2024 10:0 0am Family History No Family History Records Found Relationship Condition Age at Onset Recorded Date/T becky father Diabetes mellitus Unknown grandmother Malignant neoplasm of colon Unknown Advance Directives No Advanced Directives Records Found Advance Directive Response Recorded Date/ Time Living Will No May 09, 2024 3:07pm Power of Chili Powder Mixer No May 09 3:07pm Advance Directive Response Recorded Date/ Time Living Will No March 4th, 2025 3:07pm Do you have a Healthcare Power of Chili Powder Mixer? No May 09, 2024 3:07pm Summary Purpose Additional Source Comments Care Teams (unrecognized sec tion and content) Team Status: Active Member Role Status Dates Dr. Jeramy Patiño MD Family Provider Active Emilee Mcclelland DYNAMICS AX TECHNICAL ARCHITECT-C Primary Care Provider Active Team Status: Inactive Member Role Status Dates Emilee Mcclelland DYNAMICS AX TECHNICAL ARCHITECT-C Primary Care Provide r, Attending Provider, Referring Provider Active Team Status: Active Member Role Status Dates Emilee Mcclelland DYNAMICS AX TECHNICAL ARCHITECT-C Primary Care Provider Active Team Status: Inactive Member Role Status Dates Emilee Mcclelland DYNAMICS AX TECHNICAL ARCHITECT-C Primary Care Provider Active Start: February 21, 2024 End: February 21, 2024 Dr. Abram Cameron MD Attending Provider Active Start: February 21, 2024 End: February 21, 2024 Dr. Abram Cameron MD Referring Provider Active Start: February 21, 2024 End: February 21, 2024 Team Status: Active Member Role Status Dates Emilee Mcclelland DYNAMICS AX TECHNICAL ARCHITECT-C Primary Care Provider Active Start: February 21, 2024 [facility] Attending Provider Active Start: Tn dex 2023 Team Status: Inactive Member Role Status Dates Emilee Mcclelland DYNAMICS AX TECHNICAL ARCHITECT-C Primary Care Provider Active Start: May 10, 2024 End: May 10, 2024 Emilee Mcclelland DYNAMICS AX TECHNICAL ARCHITECT-C Referring Provider Active St art: May 10, 2024 End: May 10, 2024 Dr. Tico Hernandez DO Attending Provider Active Start: May 10, 2024 End: May 10, 2024 Team Status: Active Member Role Status Dates Emilee Mcclelland DYNAMICS AX TECHNICAL ARCHITECT-C Primary Care Provider Active Start: May 10, 2024 Emilee Mcclelland DYNAMICS AX TECHNICAL ARCHITECT-C Referring Provider Active St art: May 10, 2024 Dr. Tico Hernandez DO Attending Provider Active Start: May 10, 2024 Dr. Tico Hernandez DO Other Provider Active St art: May 10, 2024 Team Status: Inactive Member Role Status Dates Emilee Mcclelland DYNAMICS AX TECHNICAL ARCHITECT-C Primary Care Provider Active Start: May 22, 2024 End: May 22, 2024 Dr. Abram Cameron MD Attending Provider Active Start: May 22, 2024 End: May 22, 2024 Dr. Abram Cameron MD Referring Provider Active Start: May 22, 2024 End: May 22, 2024 Team Status: Inactive Member Role Status Dates Emilee Mcclelland DYNAMICS AX TECHNICAL ARCHITECT-C Primary Care Provider Active Start: June 14, 2024 End: June 14, 2024 Dr. Abram Cameron MD Attending Provider Active Start: June 14, 2024 End: June 14, 2024 Dr. Abram Cameron MD Referring Provider Active Start: June 14, 2024 End: June 14, 2024 Team Status: Active Member Role Status Dates Emilee Mcclelland DYNAMICS AX TECHNICAL ARCHITECT-C Primary Care Provider Active Start: July 21, 2024 Dr. Abram Cameron MD Attending Provider Active Start: July 21, 2024 Dr. Abram Cameron MD Referring Provider Active Start: July 21, 2024 Team Status: Inactive Member Role Status Dates Emilee Mcclelland DYNAMICS AX TECHNICAL ARCHITECT-C Primary Care Provider Active Start: July 24, 2024 End: July 24, 2024 Dr. Abram Cameron MD Attending Provider Active Start: July 24, 2024 End: July 24, 2024 Dr. Abram Cameron MD Referring Provider Active Start: July 24, 2024 End: July 24, 2024 Team Status: Inactive Member Role Status Dates Emilee Mcclelland DYNAMICS AX TECHNICAL ARCHITECT-C Primary Care Provider Active Start: August 11, 2024 End: August 11, 2024 Dr. Abram Cameron MD Attending Provider Active Start: August 11, 2024 End: August 11, 2024 Dr. Abram Cameron MD Referring Provider Active Start: August 11, 2024 End: August 11, 2024 Team Status: Active Member Role Status Dates Emilee Mcclelland DYNAMICS AX TECHNICAL ARCHITECT-C Primary Care Provider Active Start: August 15, 2024 Dr. Abram Cameron MD Attending Provider Active Start: August 15, 2024 Dr. Abram Cameron MD Referring Provider Active Start: August 15, 2024 Team Status: Inactive Member Role Status Dates Emilee Mcclelland DYNAMICS AX TECHNICAL ARCHITECT-C Primary Care Provider Active Start: August 15, 2024 End: August 15, 2024 Dr. Abram Cameron MD Attending Provider Active Start: August 15, 2024 End: August 15, 2024 Dr. Abram Cameron MD Referring Provider Active Start: August 15, 2024 End: August 15, 2024 Goals (unrecognized section and content) Goals may be documented in a n alternate sectionGoals may be documented in an alternate section INFORMATION SOURCE (unrecogn ized section and content) DATE CREATED AUTHOR 08/16/2024 [facility] FOR RECORDS PERTAINING TO PATIENTS WHO ARE OR HAVE BEEN ENROLLED IN A CHEMICAL DEPENDENCY/SUBSTANCEABUSE PROGRAM, SOME INFORMATION MAY BE OMITTED. This clinical summary was aggregated from multiple sources. Caution should be exercised in using it in the provision of clinical care. This summary normalizes information from multiple sources, and as a consequence, information in this document may materially change the coding, format and clinical context of patient data. In addition, data may be omitted in some cases. CLINICAL DECISIONS SHOULD BE BASED ON THE PRIMARY CLINICAL RECORDS. [employer] provides no warranty or guarantee of the accuracy or completeness of information in this document.
--- NOTE | 2024-08-19 08:01 | MRI_ITS ---
PROCEDURE: SPINE LUMBAR (ROUTINE) 08/19/2024 REASON FOR EXAM: RADICULOPATHY TECHNIQUE: Multiplanar and multisequence images were obtained without IV contrast administration. COMPARISON: Lumbar spine radiograph from 06/14/2024. FINDINGS: There are 4 lumbar type vertebral bodies. Lumbosacral junction will be identified as L4-S1. Lumbar vertebral bodies maintain a normal height. There is mild disc space narrowing at L2-L3. No acute fracture or subluxation is identified. The tip of the conus medullaris terminates at T12-L1 and signal intensity of the included spinal cord is within normal limits. Paraspinous musculature is unremarkable. Individual levels: T12-L1: No disc herniation, central canal stenosis, or neural foraminal narrowing. Mild facet arthropathy is present. L1-L2: No disc herniation, central canal stenosis, or neural foraminal narrowing. Facet arthropathy is present. L2-L3: Mild disc bulge with facet/flavum hypertrophy. No significant central canal stenosis or neural foraminal narrowing. L3-L4: Mild disc bulge with facet/flavum hypertrophy. No significant central canal stenosis or neural foraminal narrowing. L4-S1: Minimal disc bulge with facet arthropathy. No significant central canal stenosis or neural foraminal narrowing. MRI/Spine Lumbar (Routine) IMPRESSION: 1. Multilevel mild disc bulges with no significant central canal stenosis or ne ural foraminal narrowing. 2. 4 lumbar type vertebral bodies with the lumbosacral junction identified as L 4-S1. Reading Location: [facility]
== END | disposition home or self-care (01) ==
LOC: MRI 07:57
PROVIDERS: PCP Nurse Practitioner Family; Referring Provider Clinical Nurse Specialist Adult Health; Visit Provider Clinical Nurse Specialist Adult Health
DX: M51.16 Intervertebral disc disorders with radiculopathy, lumbar region (principal)
CPT/HCPCS: 72148

== ENCOUNTER → 2024-09-01 | Outpatient (CLI) | payer OTHER, SELFPAY ==
--- NOTE | 2024-09-01 13:42 | RAD_ITS ---
EXAM: XR Cervical Spine, 6 or More Views CLINICAL INDICATION: CERVICAL SPINE PAIN TECHNIQUE: Frontal, lateral, oblique and flexion/extension views of the cervical spine. COMPARISON: No relevant prior studies available. FINDINGS: VERTEBRAE: Unremarkable. Normal alignment. No acute fracture or significant dynamic instability. DISC SPACES: No acute findings. No significant narrowing. SOFT TISSUES: Unremarkable. RAD/Cerv Spine Obl/Flex/Ext Comp IMPRESSION: No acute fracture or significant dynamic instability. Reading Location: [id number]
== END | disposition home or self-care (01) ==
LOC: MTRAD 13:36
PROVIDERS: PCP Nurse Practitioner Family; Referring Provider Anesthesiology Pain Medicine; Visit Provider Anesthesiology Pain Medicine
DX: M50.30 Other cervical disc degeneration, unspecified cervical region (principal)
CPT/HCPCS: 72052

== ENCOUNTER 2024-10-23 06:40 | Day surgery (SDC) | payer OTHER, SELFPAY ==
--- OUTSIDE RECORDS SUMMARY | 2024-10-23 06:46 | XMS RPT_ITS | CCD ---
Author Organization [facility] Care Team Providers Care Manager Reading Name Role Phone Stas CELLULAR PLASTICS CUTTER-C, Emilee Primary Care Provider Rakesh DYER, Dr. Valverde Attending Provider Rakesh DYER, Dr. Valverde Referring Provider [phone] Asha Morton Attending Provider Unavailable Stas CELLULAR PLASTICS CUTTER-C, Emilee Referring Provider David CHIN, Dr. Doshi Attending Provider Dr. Tico Hernandez DO Other Provider [phone] Stas CELLULAR PLASTICS CUTTER-C, Emilee Primary Care Provider Rakesh DYER, Dr. Valverde Attending Provider [phone] Dr. Abram Cameron MD Referring Provider [phone] NP. Gladys Gonzalez Attending Provider NP. Gladys Gonzalez Referring Provider Abram Cameron Attending Unavailable Abram Cameron Referring Unavailable Stas, Emilee Primary Care Unavailable Tico Hernandez Attending Unavailable Stas, Emilee Primary Care Unavailable Stas, Emilee Referring Unavailable Abram Cameron Attending Unavailable Abram Cameron Referring Unavailable Stas, Emilee Primary Care Unavailable Abram Cameron Referring Unavailable Abram Cameron Attending Unavailable Stas, Emilee Primary Care Unavailable Abram Cameron Referring Unavailable Abram Cameron Attending Unavailable Stas, Emilee Primary Care Unavailable Asha Morton Attending Unavailable Stas, Emilee Primary Care Unavailable Tico Hernandez Consulting Unavailable [employer] Attending Unavailable Stas, Emilee Primary Care Unavailable Stas, Emilee Referring Unavailable Carlos, Gladys Attending Unavailable Gladys Gonzalez Referring Unavailable Stas, Emilee Primary Care Unavailable Abram Cameron Referring Unavailable Abram Cameron Attending Unavailable [facility] Primary Care Unavailable Abram Cameron Referring Unavailable Abram Cameron Attending Unavailable [facility] Primary Care Unavailable Abram Cameron Referring Unavailable Abram Cameron Attending Unavailable [facility] Primary Care Unavailable Abram Cameron Attending Unavailable Abram Cameron Referring Unavailable [facility] Primary Care Unavailable Abram Cameron Referring Unavailable Abram Cameron Attending Unavailable [facility] Primary Care Unavailable Medications Current Medications Medication Drug Class(es) Dates Sig (Normalized) Sig (Original) acetaminophen 250 mg / aspirin 250 mg / caffeine 65 mg oral tablet (9 sources) Platelet Aggregation Inhibitor, Nonsteroidal Anti-inflammatory Drug, Central Nervous System Stimulant, Methylxanthine Start: 04-03-2020 Aspirin-Acetamin ophen-Caffeine (Excedrin Migraine) 250-250-65 mg tablet Active 1 {tbl} PO NEEDED April 03, 2020 1:00am Start: 04-03-2020 take 1 tablet by jessica th once Prbyygd-Gflyezzkyqxku-Txxxdfcp (Excedrin Migraine) 250-250-65 mg tablet Active 1 TABLET PO ONCE April 03, 2020 1:00am acyclovir 400 mg oral tablet (7 sources) Herpesvirus Nucleoside Analog DNA Polymerase Inhibitor, [...] hydrochloride 150 mg extended release oral tablet (20 sources) Aminoketone Start: 02-21-2024 Bupropion Hcl 150 [...] 2018 12:00am cholecalciferol 0.05 mg oral capsule (16 sources) Vitamin D Start: 02-21-2024 take 1 [...] 10:53am diphenhydrAMINE hydrochloride 25 mg oral capsule (7 sources) Histamine-1 Receptor Antagonist Start: 09-22-2022 take 1 capsule by mouth at bedtime as needed Diphenhydramine Hcl (Benadryl) 25 mg capsule Active 25 mg PO AT BEDTIME as needed for allergy symptoms September 22, 2022 12:00am ferrous sulfate 325 mg oral tablet (16 sources) Start: 08-17-2023 take 1 tablet by [...] 2020 12:23pm ibuprofen 200 mg oral capsule (9 sources) Nonsteroidal Anti-inflammatory Drug Start: 04-03-2020 take [...] 2020 1:00am lisinopril 10 mg oral tablet (7 sources) Angiotensin Converting Enzyme Inhibitor Start: 09-22-2022 take 1 tablet by mouth at bedtime Lisinopril 10 mg tablet Active 10 mg PO AT BEDTIME September 22, 2022 12:00am [place] 1-Nqt-Vfs-Fish Oil (Fish Oil) 1,200 (144-216) mg capsule (7 sources) Start: 02-21-2024 [place] 8-Dqx-Blb-Fish Oil (Fish Oil) 1,200 (144-216) mg capsule Active 1 NMA PO DAILY February 21, 2024 1:00am omeprazole 20 mg delayed release oral capsule (7 sources) Proton Pump Inhibitor Start: 02-21-2024 take 1 capsule by mouth at bedtime as needed for gastroesophageal reflux disease Omeprazole 20 mg capsule,delayed release(DR/EC) Active 20 mg PO AT BEDTIME as needed for gerd February 21, 2024 1:00am 0.5 ml SUMAtriptan 12 mg/ml cartridge (7 sources) Serotonin-1b and Serotonin-1d Receptor Agonist Start: 02-21-2024 Sumatriptan Succinate 6 mg/0.5 mL cartridge Active 6 mg SC every 1 to 4 hours as needed for migraine headache February 21, 2024 1:00am do not exceed 2 doses in a 24 hour period tiZANidine 2 mg oral capsule (16 sources) Central alpha-2 Adrenergic Agonist Start: 11-10-2018 End: 02-21-2024 Tizanidine (Zanaflex) 2 mg capsule Active 4 mg PO Q8H as needed for muscle spasticity February 21, 2024 10:51am traMADol hydrochloride 50 mg oral tablet (16 sources) Opioid Agonist Start: 02-21-2024 take 1 [...] 10:53am zolpidem tartrate 5 mg oral tablet (9 sources) gamma-Aminobutyric Acid-ergic Agonist Start: 11-10-2018 take [...] Sig (Original) acetaminophen 325 mg oral capsule (9 sources) Start: 04-03-2020 End: 08-17-2023 take 1 capsule by mouth once as needed Acetaminophen (Tylenol) 325 mg capsule Discontinued 325 mg PO ONCE as needed April 03, 2020 1:00am August 17, 2023 12:13pm diclofenac sodium 75 mg delayed release oral tablet (9 sources) Nonsteroidal Anti-inflammatory Drug Start: 04-03-2020 End: 02-21-2024 Diclofenac Sodium 75 mg tablet,delayed release (DR/EC) Discontinued 50 mg PO TWICE A DAY as needed for pain April 03, 2020 1:00am February 21, 2024 9:06am Start: 04-03-2020 take 50 mg by mouth twice bubba y Diclofenac Sodium Active 50 MG PO TWICE A DAY April 03, 2020 1:00am naproxen sodium 220 mg oral capsule (9 sources) Nonsteroidal Anti-inflammatory Drug Start: 11-10-2018 End: 09-22-2022 take 1 capsule by mouth twice daily Naproxen Sodium (Aleve) 220 mg capsule Discontinued 220 mg PO TWICE A DAY November 10, 2018 12:00am September 22, 2022 1:02pm predniSONE 10 mg oral tablet (16 sources) Start: 09-22-2022 End: 08-17-2023 take 4 tablets by mouth once daily, then take 3 tablets by mouth once daily, then take 2 tablets by mouth once daily, then take 1 tablet by mouth once daily Prednisone 10 mg tablet Discontinued 10 mg PO As Directed 30 0 September 22, 2022 12:00am August 17, 2023 [...] mg tablet Discontinued 20 mg PO DAILY 18 0 November 10, 2018 12:00am April 03, 2020 12:23pm 3 tablets daily for 3 days, then 2 tablets daily for 3 days, then 1 tablet daily for 3 days sertraline 25 mg oral tablet (9 sources) Serotonin Reuptake Inhibitor Start: 11-10-2018 End: 09-22-2022 take 1 tablet by mouth once daily Sertraline (Zoloft) 25 mg tablet Discontinued 25 mg PO DAILY November 10, 2018 12:00am September 22, 2022 1:02pm Problems Active Problems Problem Classification Problem Date Documented Da te Episodic/Chronic Allergic reactions (7 sources) Contact dermatitis due to plants; Translations: [Unspecified contact dermatitis due to plants, except food] 09-22-2022 Episodic Other non-traumatic joint disorders (1 source) Pain in right shoulder; Translations: [Pain in right shoulder] Onset: 08-16-2024 Episodic Spondylosis; intervertebral disc disorders; other back problems (3 sources) Other cervical disc degeneration, unspecified cervical region; Translations: [Spondylosis without myelopathy or radiculopathy, cervical region] Onset: 06-02-2024 Chronic Spondylosis; intervertebral disc disorders; other back problems (4 sources) Radiculopathy, cervical region; Translations: [Intervertebral disc disorders with radiculopathy, lumbar region] Onset: 07-29-2024 Episodic Past or Other Problems Problem Classification Problem Date Documented Da te Episodic/Chronic Other screening for suspected conditions (not mental disorders or infectious disease) (16 sources) Patient encounter status; Translations: [Encounter for screening for malignant neoplasm of colon] Onset: 05-16-2024 02-21-2024 Episodic Unclassified (9 sources) h/o ulnar nerve release 09-24-2021 Results Test Name Value Interpretation Reference Range Facility Re-Evaluation - PT (1)on Re-Evaluation - PT (1) [facility] [address] [place] [address]. [address] [place] [address] / REEVALUATION / MEDICARE RECERTIFICATION PHYSICAL THERAPY MR#: [id number] Acct: [id number] Name: TINY MCCONNELL Rep #: [id number] : 1970 54 From: Debbie Palmer MPT Referring Dr.: Dr. Abram Cameron MD Status:REG RCR Insurance: [employer]/[facility] SELF PAY INSURANCE Re-Evaluation Intro: Dr. Abram Cameron MD, It has been my pleasure to treat TINY MCCONNELL over the last 10 visits for C-spine Racdic and C- spine DDD. Please see the progress note below for an update on the physical therapy plan of care! Subjective Subjective: Not waking up with so much pain and not as severe. Pt saw the Dr last week and he has put into insurance to do MRI (neck) and c-spine epidural (Sept). (Dr Salamanca). Pt feels that the US she thinks is helping. Pt is more aware of her posture but it is not always great. She is getting 4 hours consecutively sleep with Ambien. Objective Objective/Function: (Shoulder AROM R shoulder flex 143 and L 162 R shoulder ABD R 167 degrees and L 180 R shoulder IR T12 and L T6 R shoulder ER 71 and L 78) UE MMT: R shoulder flexion 9.2 and L 8.7 R shoulder ABD 9 and L 9 R shoulder ER 11.2 and L 8.6 R shoulder IR 12.8 and L 7.5) Plan Plan Plan: 2X/ week for 8 weeks for lower trap strength, postural strength, R shoulder RC strength, C- spine stretches, US, MT to c-spine and R shoulder. HEP: pink mid rows, notice and correct posture Balance/Gait/Functio nal tests Balance/Special Test Scores Oswestry Neck Score: 20 Goals Goals Goal 1:: I HEP Goal Time Frame: 6-8 Weeks Goal Progress: Goal Met Goal 2:: Sit with upright posture throughout the day and treatment sessions to help with c-spine pain and impingement of the R shoulder Goal Time Frame: 6-8 Weeks Goal Progress: Progressing Goal 3:: Decrease R shoulder pain with reaching out to the side by 50% Goal Time Frame: 6-8 Weeks Goal 4:: Increase R shoulder AROM (Shoulder AROM R shoulder flex 142 and L 162 R shoulder ABD R 140 degrees and L 180 R shoulder IR T12 and L T6 R shoulder ER 71 and L 78) Goal Time Frame: 6-8 Weeks Goal Progress: Progressing Goal 5:: Increase R shoulder strength (at the time of the eval: Shoulder strength: R shoulder flexion 7.2 and L 8.7 R shoulder ABD 7.4 and L 9 R shoulder ER 7 and L 8.6 R shoulder IR 9.4 and L 7.5) Goal Time Frame: 6-8 Weeks Goal Progress: Progressing Anticipated Interventions Anticipated Interventions Patient/Client Instruction: Educate patient on: Condition and Plan of Care For the Purpose of:: To decrease pain, To increase ROM, To improve nutrient delivery to tissue, To improve muscle performance and motor function, To improve ability to perform ADL's, To increase tolerance to activity/condition/p osition, To improve performance and independence with ADL's, To improve ability of physical actions for home/community/work/ leisure, To improve health of tissue, To decrease soft tissue restriction and To increase flexibility/ROM Therapeutic Exercise to Include: Strength training, Postural training, Flexibilty training, Passive ROM, Active ROM and Scapular Strength/Stabilizati on For the Purpose of:: To decrease pain, To increase ROM, To improve nutrient delivery to tissue, To improve muscle performance and motor function, To improve ability to perform ADL's, To increase tolerance to activity/condition/p osition, To improve performance and independence with ADL's, To improve ability of physical actions for home/community/work/ leisure, To improve health of tissue, To decrease soft tissue restriction and To increase flexibility/ROM Manual Therapy Techniques to Include: Mobilization, Passive ROM and Soft tissue mobilization For the Purpose of:: To decrease pain, To increase ROM, To improve nutrient delivery to tissue, To improve health of tissue, To decrease soft tissue restriction and To increase flexibility/ROM Cryotherapy (ice pack, ice massage): Yes Thermo therapy (hot pack): Yes Ultrasound (thermal/non thermal): Yes For the Purpose of:: To decrease pain, To increase ROM and To improve nutrient delivery to tissue Re-Evaluation Ending Re-evaluation ending: Please do not hesitate to contact me at [phone] by phone or if you have questions or concerns regarding this new plan of care! Sincerely, THANIA Chung 10/09/24 1526 CC: BARRY Mcclelland; Dr. Abram Cameron MD Signed For Medicare only, by signing this I certify the plan of care. Physicians Signature Date Normal [facility] Inital Evaluation (1) - PTon 09-12-2024 Inital Evaluation (1) - PT [facility] [address] [place] [address] / REHABILITATION SERVICES INITIAL EVALUATION MR#: [id number] Acct: [id number] Name: TINY MCCONNELL Rep #: [id number] : 1970 53 From: Debbie MONTEIRO Referring Dr.: Dr. Abram Cameron MD Status: REG RCR Insurance: [employer]/[facility] SELF PAY INSURANCE Patient's Visit Information Visit Information Visit Information: TINY MCCONNELL is a 53 year old F referred to Physical Therapy by Dr. Abram Cameron MD with a diagnosis of C-spine Racdic and C-spine DDD. Date of Evaluation: 09/12/24 Physical Therapist: THANIA Chung Visit Plan Frequency: 2x /Week Duration: 2 Months Plan: 2X/ week for 8 weeks for lower trap strength, postural strength, R shoulder RC strength, C- spine stretches with HEP HEP: pink mid rows, notice and correct posture Subjective Subjective: She was here in July for her LB and got an MRI and was in PT for 4 weeks and even at that time her R shoulder was hurting then. She also has neck pain and gets injection C4-C7 B sides and gets one side of the neck twice a year. Pain is not up the neck and spread out more. Her shoulder started hurting more and has not done anything with her shoulder. Sometimes she would feel underside of B forearms. She has FM and weak strength with grasping and opening jars. He did an X- ray of the neck and then will do MRI after PT. She is R handed. She can move her R shoulder but she has pain if she reaches out away from her body. Pain R shoulder: Pain Intensity (Out of 10): 2 neck pain: Pain Intensity (Out of 10): 2 Objective Objective: R handed: Tight pec B Shoulder AROM R shoulder flex 142 and L 162 R shoulder ABD R 140 degrees and L 180 R shoulder IR T12 and L T6 R shoulder ER 71 and L 78 Shoulder strength: R shoulder flexion 7.2 and L 8.7 R shoulder ABD 7.4 and L 9 R shoulder ER 7 and L 8.6 R shoulder IR 9.4 and L 7.5 C-spine AROM: flexion 100% (increase pain down the C-spine and into rhomboids B), Ext 100%, SB B 75%, ROT B 75% Stenotype Machine Operator strength R 70 and L 60# Posture: Rounded shoulders and protracted shoulders MT: tender levator and upper trap B Pt struggles with scapular retraction as she likes to use her upper trap Balance/Special Test Scores Oswestry Neck Score: 17 Goals Goal 1:: I HEP Goal Time Frame: 6-8 Weeks Goal 2:: Sit with upright posture throughout the day and treatment sessions to help with c-spine pain and impingement of the R shoulder Goal Time Frame: 6-8 Weeks Goal 3:: Decrease R shoulder pain with reaching out to the side by 50% Goal Time Frame: 6-8 Weeks Goal 4:: Increase R shoulder AROM (Shoulder AROM R shoulder flex 142 and L 162 R shoulder ABD R 140 degrees and L 180 R shoulder IR T12 and L T6 R shoulder ER 71 and L 78) Goal Time Frame: 6-8 Weeks Goal 5:: Increase R shoulder strength (at the time of the eval: Shoulder strength: R shoulder flexion 7.2 and L 8.7 R shoulder ABD 7.4 and L 9 R shoulder ER 7 and L 8.6 R shoulder IR 9.4 and L 7.5) Goal Time Frame: 6-8 Weeks Rehabilitation Potential Rehabilitation Potential: Good Anticipated Interventions Patient/Client Instruction: Educate patient on: Condition and Plan of Care For the Purpose of:: To decrease pain, To increase ROM, To improve nutrient delivery to tissue, To improve muscle performance and motor function, To improve ability to perform ADL's, To increase tolerance to activity/condition/p osition, To improve performance and independence with ADL's, To improve ability of physical actions for home/community/work/ leisure, To improve health of tissue, To decrease soft tissue restriction and To increase flexibility/ROM Therapeutic Exercise to Include: Strength training, Postural training, Flexibilty training, Passive ROM, Active ROM and Scapular Strength/Stabilizati on For the Purpose of:: To decrease pain, To increase ROM, To improve nutrient delivery to tissue, To improve muscle performance and motor function, To improve ability to perform ADL's, To increase tolerance to activity/condition/p osition, To improve performance and independence with ADL's, To improve ability of physical actions for home/community/work/ leisure, To improve health of tissue, To decrease soft tissue restriction and To increase flexibility/ROM Manual Therapy Techniques to Include: Mobilization, Passive ROM and Soft tissue mobilization For the Purpose of:: To decrease pain, To increase ROM, To improve nutrient delivery to tissue, To improve health of tissue, To decrease soft tissue restriction and To increase flexibility/ROM Cryotherapy (ice pack, ice massage): Yes Thermo therapy (hot pack): Yes Ultrasound (thermal/non thermal): Yes For the Purpose of:: To decrease pain, To increase ROM and To improve nutrient delivery to tissue Text: Than (more content not included)... Normal [facility] Cerv Spine Obl/Flex/Ext Comp on 09-01-2024 Cerv Spine Obl/Flex/Ext Comp [facility] [address] [place] [id number] Cerv Spine Obl/Flex/Ext Comp MR#: [id number] Acct: [id number] Name: TINY MCCONNELL Rep #: [id number] : 1970 F 53 From: Adam Barkley MD PCP: BARRY Dobson Status: REG CLI Study: Cerv Spine Obl/Flex/Ext Comp Date of Exam: Exam# [id number] Ordering Dr: Abram Cameron MD EXAM: XR Cervical Spine, 6 or More Views CLINICAL INDICATION: CERVICAL SPINE PAIN TECHNIQUE: Frontal, lateral, oblique and flexion/extension views of the cervical spine. COMPARISON: No relevant prior studies available. FINDINGS: VERTEBRAE: Unremarkable. Normal alignment. No acute fracture or significant dynamic instability. DISC SPACES: No acute findings. No significant narrowing. SOFT TISSUES: Unremarkable. RAD/Cerv Spine Obl/Flex/Ext Comp IMPRESSION: No acute fracture or significant dynamic instability. Reading Location: [id number] CC: CELLULAR PLASTICS CUTTER-C Emilee Mcclelland; Dr. Abram Cameron MD Senior Care Assistant: Signed Normal [facility] Magnetic resonance imaging r eportOrdered By: Segun Smith on 08-20-2024 Study report [facility] [address] [place] [address] Spine Lumbar (Routine) MR#: [id number] Acct: [id number] Name: TINY MCCONNELL Rep #: [id number] : 1970 F 53 From: Jama Smith DO PCP: KAVITA DobsonC Status: REG CLI Study:Spine Lumbar (Routine) Date of Exam: 08/19/24 Exam# [id number] Ordering Dr: Gladys Gonazlez PROCEDURE: SPINE LUMBAR (ROUTINE) 08/19/2024 REASON FOR EXAM: RADICULOPATHY TECHNIQUE: Multiplanar and multisequence images were obtained without IV contrast administration. COMPARISON: Lumbar spine radiograph from 06/14/2024. FINDINGS: There are 4 lumbar type vertebral bodies. Lumbosacral junction will be identified as L4-S1. Lumbar vertebral bodies maintain a normal height. There is mild disc space narrowing at L2-L3. No acute fracture or subluxation is identified. The tip of the conus medullaris terminates at T12-L1 and signal intensity of the included spinal cord is within normal limits. Paraspinous musculature is unremarkable. Individual levels: T12-L1: No disc herniation, central canal stenosis, or neural foraminal narrowing. Mild facet arthropathy is present. L1-L2: No disc herniation, central canal stenosis, or neural foraminal narrowing. Facet arthropathy is present. L2-L3: Mild disc bulge with facet/flavum hypertrophy. No significant central canal stenosis or neural foraminal narrowing. L3-L4: Mild disc bulge with facet/flavum hypertrophy. No significant central canal stenosis or neural foraminal narrowing. L4-S1: Minimal disc bulge with facet arthropathy. No significant central canal stenosis or neural foraminal narrowing. MRI/Spine Lumbar (Routine) IMPRESSION: 1. Multilevel mild disc bulges with no significant central canal stenosis or neural foraminal narrowing. 2. 4 lumbar type vertebral bodies with the lumbosacral junction identified as L4-S1. Reading Location: [facility] CC: CELLULAR PLASTICS CUTTER-C Emilee Mcclelland; Gladys Gonzalez ~ Senior Care Assistant: Signed [facility] Spine Lumbar (Routine)on Spine Lumbar (Routine) [facility] [address] [place] [address] Spine Lumbar (Routine) MR#: [id number] Acct: [id number] Name: TINY MCCONNELL Rep #: [id number] : 1970 F 53 From: Segun Middletonfaith CHIN PCP: BARRY Dobson Status: REG CLI Study: Spine Lumbar (Routine) Date of Exam: 08/19/24 Exam# [id number] Ordering Dr: Gladys Gonzalez PROCEDURE: SPINE LUMBAR (ROUTINE) 08/19/2024 REASON FOR EXAM: RADICULOPATHY TECHNIQUE: Multiplanar and multisequence images were obtained without IV contrast administration. COMPARISON: Lumbar spine radiograph from 06/14/2024. FINDINGS: There are 4 lumbar type vertebral bodies. Lumbosacral junction will be identified as L4-S1. Lumbar vertebral bodies maintain a normal height. There is mild disc space narrowing at L2-L3. No acute fracture or subluxation is identified. The tip of the conus medullaris terminates at T12-L1 and signal intensity of the included spinal cord is within normal limits. Paraspinous musculature is unremarkable. Individual levels: T12-L1: No disc herniation, central canal stenosis, or neural foraminal narrowing. Mild facet arthropathy is present. L1-L2: No disc herniation, central canal stenosis, or neural foraminal narrowing. Facet arthropathy is present. L2-L3: Mild disc bulge with facet/flavum hypertrophy. No significant central canal stenosis or neural foraminal narrowing. L3-L4: Mild disc bulge with facet/flavum hypertrophy. No significant central canal stenosis or neural foraminal narrowing. L4-S1: Minimal disc bulge with facet arthropathy. No significant central canal stenosis or neural foraminal narrowing. MRI/Spine Lumbar (Routine) IMPRESSION: 1. Multilevel mild disc bulges with no significant central canal stenosis or neural foraminal narrowing. 2. 4 lumbar type vertebral bodies with the lumbosacral junction identified as L4-S1. Reading Location: [facility] CC: BARRY Mcclelland; Gladys Gonzalez Senior Care Assistant: Signed Normal [facility] PT D/C Summary (1)on 025 PT D/C Summary (1) [facility] [address] [place] [address] / REHABILITATION SERVICES DISCHARGE SUMMARY MR#: [id number] Acct: [id number] Name: TINY MCCONNELL Rep #: [id number] : 1970 53 From: Debbie MONTEIRO Referring Dr.: Dr. Abram Cameron MD Status: REG RCR Insurance: [employer]/[facility] SELF PAY INSURANCE Discharge Summary D/C summary: [...] Plan Plan: DC PT back to Dr. Macias Information Discharge Comments: DC PT d/c sentence: If there are questions or concerns regarding this patient's physical therapy, please feel free to call me at [phone]. Thank you for the referral of this patient. Sincerely, Debbie Palmer, MPT Balance/Gait/Functio nal tests Balance/Special Test Scores Oswestry Low Back Score: 20 Improvement % Improvement: 40 08/15/24 1100 CC: BARRY Mcclelland; Dr. Abram Cameron MD Signed Normal [facility] Shoulder min 2 Viewson 08-11 Shoulder min 2 Views [facility] [address] [place], [place] [id number] Shoulder min 2 Views MR#: [id number] Acct: [id number] Name: TINY MCCONNELL Rep #: [id number] : 1970 F 53 From: Anastacio Palomo PCP: BARRY Dobson Status: REG CLI Study: Shoulder min 2 Views Date of Exam: 08/11/24 Exam# [id number] Ordering Dr: Abram Cameron MD PROCEDURE: SHOULDER MIN 2 VIEWS 08/11/2024 REASON FOR EXAM: RIGHT SHOULDER PAIN TECHNIQUE: Four view right shoulder series. COMPARISON: None. RAD/Shoulder min 2 Views IMPRESSION: No significant arthritic process or joint space narrowing is seen. Satisfactory osseous alignment is present. No fracture, dislocation, or other significant osseous or joint space abnormality is seen. Reading Location: [address] CC: BARRY Mcclelland; Dr. Abram Cameron MD Senior Care Assistant: Signed [facility] Fluor Guidance for Spine Inj on 07-24-2024 Fluor Guidance for Spine Inj [facility] Imaging Services [address] [place], [place] [id number] Fluor Guidance for Spine Inj MR#: [id number] Acct: [id number] Name: TINY MCCONNELL Rep #: [id number] : 1970 F 53 From: Quentin diego MD PCP: BARRY Dobson Status: [facility] Study: Fluor Guidance for Spine Inj Date of Exam: Exam# [id number] Ordering Dr: Abram Cameron MD PROCEDURE: FLUOR GUIDANCE FOR SPINE INJ 07/24/2024 REASON FOR EXAM: BLOCK, CAUDAL TECHNIQUE: Fluoroscopic services provided for caudal block. 2.3 seconds of fluoroscopy. 1.49 mGy. 1 image was obtained. COMPARISON: None FINDINGS: Intraoperative imaging provided for caudal block. RAD/Fluor Guidance for Spine Inj IMPRESSION: Intraoperative imaging provided for caudal block. Reading Location: [place] [address] CC: CELLULAR PLASTICS CUTTER-C Emilee Mcclelland; Dr. Abram Cameron MD Senior Care Assistant: Signed [facility] MR/POSTOP.[facility] 07-24-2024 MR/POSTOP.[facility] Medical Records Department [address] [place] [address] Anesthesia Postop Eval I 07/24/24 1209 MR#: [id number] Acct: [id number] Name: TINY MCCONNELL JO Rep #: [id number] : 1970 53 From: Pradeep Kent CRNA PCP: BARRY Dobson Status:REG [facility] Y Race: C Location: [place] [address] Anesthesia: Postop Eval I Current Vital Signs [...] Kent CRNA Cosigner Signature: Date CC: Signed [facility] MR/[id number] 07-24-2024 MR/POSTOPAN2 [facility] Medical Records Department [address] [place] [address] Anesthesia Postop Eval II 07/24/24 1234 MR#: [id number] Acct: [id number] Name: TINY MCCONNELL Rep #: [id number] : 1970 53 From: Cameron Roman MD PCP: BARRY Dobson Status:[facility] Y Race: C Location: [facility] Anesthesia Postop Eval I Sum Postop Eval Completion status Anesthesia document: Postop Eval 1 completed: Yes Anesthesia Postop Eval I Summary Anesthesia Postop Eval I Summary: Anesthesia Postop Eval I: Assessment Summary Airway patent Yes 07/24/24 12:10 OPERATING SYSTEMS SPECIALIST.JBLOU Spontaneous unlabored Yes 07/24/24 12:10 OPERATING SYSTEMS SPECIALIST.JBLOU respirations Mental status Awake,Calm 07/24/24 12:10 OPERATING SYSTEMS SPECIALIST.JBLOU nausea No 07/24/24 12:10 OPERATING SYSTEMS SPECIALIST.JBLOU Vomiting No 07/24/24 12:10 OPERATING SYSTEMS SPECIALIST.JBLOU Anesthesia Postop Eval I: Fluid Summary Crystalloid volume administer 200 07/24/24 12:10 OPERATING SYSTEMS SPECIALIST.JBLOU (ml) Colloids volume administered ( ml) Blood Product volume administered (ml) Total IV fluid infused 200 07/24/24 12:10 OPERATING SYSTEMS SPECIALIST.JBLOU Anesthesia Postop Eval I: Summary Notes Anesthesia Complication No 07/24/24 12:10 OPERATING SYSTEMS SPECIALIST.JBLOU Anesthesia Complication Comment: Post-operative progress note Anesthesia: Postop Eval II Evaluation Mental status: Awake Pain Level: 2 nausea: No Vomiting: No 07/24/24 1234 Date Cameron Roman MD Cosigner Signature: Date CC: Signed [facility] Operative Reporton 5 Operative Report [facility] Medical Records Department [address] [place] [address] Operative Report 07/24/24 1159 MR#: [id number] Acct: [id number] Name: TINY MCCONNELL Rep #: [id number] : 1970 53 From: Abram Cameron MD PCP: KAVITA DobsonC Status:REG [facility] Location: [place] [address] Operative Report (Standard) Operative Information Date of Procedure: 07/24/24 Pre-Operative Diagnosis: Lumbosacral radiculopathy, lumbosacral degenerative disc disease, lumbosacral spinal stenosis Post-Operative Diagnosis: Lumbosacral radiculopathy, lumbosacral degenerative disc disease, lumbosacral spinal stenosis Surgery/Procedure Performed: Diagnostic/therapeut ic caudal epidural steroid injection under fluoroscopic guidance inhalation therapist: No Type of Anesthesia: Local MAC RN Documented Start/Stop Times: Operation Date: 07/24/24 11:55 Case Time Into Pre-Op 07/24/24 10:38 Anesthesia Start 07/24/24 11:35 Into Room 07/24/24 11:35 Procedure Start 07/24/24 11:38 Procedure End 07/24/24 11:43 Anesthesia End 07/24/24 11:46 Out of Room 07/24/24 11:46 Procedure Start Time: 11:59 Procedure Stop Time: 12:00 Select all DRAINS/GRAFTS/IMPLAN TS that apply: None Estimated Blood Loss: 0 [...] disc disease, lumbosacral spinal stenosis status post diagnostic/therapeut ic caudal epidural steroid injection under fluoroscopic guidance, patient will continue her current medications, patient will follow in approximately 2 weeks for reevaluation. Surgical Findings: 0 Complications Complications: No Admit VTE Documentation VTE Present on Admission: No VTE Mechan Device Prophylaxis: None VTE Pharm Prophylaxis ordered?: No 07/24/24 1200 Cosigner Signature (if applicable): CC: BARRY Mcclelland; Dr. Abram Cameron MD Signed [facility] Inital Evaluation (1) - PTon 07-18-2024 Inital Evaluation (1) - PT [facility] Physical Therapy Health[address] [place] [address] / REHABILITATION SERVICES INITIAL EVALUATION MR#: [id number] Acct: [id number] Name: TINY MCCONNELL Rep #: [id number] : 1970 53 From: Debbie MONTEIRO Referring Dr.: Dr. Abram Cameron MD Status: REG RCR Insurance: [facility] [employer] [employer] PAY INSURANCE Patient's Visit Information Visit [...] to perform ADL's, To increase tolerance to activity/condition/p osition, To improve performance and independence with ADL's, To decrease level of supervision to perform tasks, To improve ability of physical actions for home/community/work/ leisure, To improve gait and locomotor functions, To [...] to perform ADL's, To increase tolerance to activity/condition/p osition, To improve performance and independence with ADL's, To decrease level of supervision to perform tasks, To improve ability of physical actions for home/community/work/ leisure, To improve gait and locomotor functions, To [...] to be FAXED BACK to us at [phone] for Medicare purposes. For Medicare only, by signing this I certify the plan of care. Please let me know if there are questions or concerns regarding this plan of care. Physician Signature: D ate: 07/18/24 1347 CC (more content not included)... [facility] L/S Spine w Bend Min 6 Vwon 06-14-2024 L/S Spine w Bend Min 6 Vw [facility] Imaging Services [address] [place] [address] L/S Spine w Bend Min 6 Vw MR#: [id number] Acct: [id number] Name: TINY MCCONNELL Rep #: [id number] : 1970 F 53 From: Davida Wilcox MD PCP: BARRY Dobson Status: REG CLI Study: L/S Spine w Bend Min 6 Vw Date of Exam: Exam# [id number] Ordering Dr: Abram Cameron MD PROCEDURE: L/S [...] acute fracture or traumatic malalignment. Reading Location: [facility] CC: CELLULAR PLASTICS CUTTER-C Emilee Mcclelland; Dr. Abram Cameron MD Senior Care Assistant: Signed [facility] Fluor Guidance for Spine Inj on 05-22-2024 Fluor Guidance for Spine Inj [facility] Imaging Services [address] [place] [address] Fluor Guidance for Spine Inj MR#: [id number] Acct: [id number] Name: TINY MCCONNELL Rep #: [id number] : 1970 F 53 From: Dashawn Alexis i, DO PCP: BARRY Dobson Status: [facility] Study: Fluor Guidance for Spine Inj Date of Exam: Exam# [id number] Ordering Dr: Abram Cameron MD PROCEDURE: Fluoroscopy [...] note for details. Reading Location: [place] CC: CELLULAR PLASTICS CUTTER-Farzad Mcclelland; Dr. Abram Cameron MD Senior Care Assistant: Signed [facility] MR/POSTOP.ANE 05-22-2024 MR/POSTOP.[facility] Medical Records Department [address] [place] [address] Anesthesia Postop Eval I 05/22/24 1029 MR#: [id number] Acct: [id number] Name: TINY MCCONNELL JO Rep #: [id number] : 1970 53 From: Kelly Wiseman CRNA PCP: BARRY Dobson Status:REG [facility] Y Race: C Location: [place] [address] Anesthesia: Postop Eval I Current Vital Signs [...] completed: Yes 05/22/24 1030 Date Kelly Wiseman OPERATING SYSTEMS SPECIALIST Cosigner Signature: Date CC: Signed [facility] MR/[id number] 05-22-2024 MR/POSTOPAN2 [facility] Medical Records Department [address] [place] [address] Anesthesia Postop Eval II 05/22/24 1036 MR#: [id number] Acct: [id number] Name: TINY MCCONNELL Rep #: [id number] : 1970 53 From: Sulema Will PCP: BARRY Dobson Status:DEP [facility] Y Race: C Location: [facility] Anesthesia Postop Eval I Sum Postop Eval Completion status Anesthesia document: Postop Eval 1 completed: Yes Anesthesia Postop Eval I Summary Anesthesia Postop Eval I Summary: Anesthesia Postop Eval I: Assessment Summary Airway patent Yes 05/22/24 10:30 OPERATING SYSTEMS SPECIALIST.LMIL Spontaneous unlabored Yes 05/22/24 10:30 OPERATING SYSTEMS SPECIALIST.LMIL respirations Mental status Awake 05/22/24 10:30 OPERATING SYSTEMS SPECIALIST.LMIL nausea No 05/22/24 10:30 OPERATING SYSTEMS SPECIALIST.LMIL Vomiting No 05/22/24 10:30 OPERATING SYSTEMS SPECIALIST.LMIL Anesthesia Postop Eval I: Fluid Summary Crystalloid volume administer 10 05/22/24 10:30 OPERATING SYSTEMS SPECIALIST.LMIL (ml) Colloids volume administered ( ml) Blood Product volume administered (ml) Total IV fluid infused 10 05/22/24 10:30 OPERATING SYSTEMS SPECIALIST.LMIL Anesthesia Postop Eval I: Summary Notes Anesthesia Complication No 05/22/24 10:30 OPERATING SYSTEMS SPECIALIST.LMIL Anesthesia Complication Comment: Post-operative progress note Anesthesia: Postop Eval II Evaluation Mental status: Awake Pain Level: 3 nausea: No Vomiting: No 05/22/24 1111 Date Sulema Owen Signature: Date CC: Signed [facility] Operative Reporton 5 Operative Report [facility] Medical Records Department [address] [place] [address] Operative Report 05/22/24 1022 MR#: [id number] Acct: [id number] Name: TINY MCCONNLEL Rep #: [id number] : 1970 53 From: Abram Cameron MD PCP: Emilee Mcclelland, CELLULAR PLASTICS CUTTER-C Status:REG [facility] Location: [place] [address] Operative Report (Standard) Operative Information Date of Procedure: 05/22/24 Pre-Operative Diagnosis: Cervical spondylosis, cervical facet arthropathy, cervical degenerative disc disease Post-Operative Diagnosis: Cervical spondylosis, cervical degenerative disc disease, cervical facet arthropathy Surgery/Procedure Performed: Right-sided cervical facet steroid injection C4-5, C5-6, C6-7 inhalation therapist: No Type of Anesthesia: Local MAC RN Documented Start/Stop Times: Operation Date: 05/22/24 10:00 Case Time Into Pre-Op 05/22/24 09:07 Anesthesia Start 05/22/24 10:11 Into Room 05/22/24 10:11 Out of Pre-Op 05/22/24 10:11 Procedure Start 05/22/24 10:16 Procedure End 05/22/24 10:18 Procedure Start Time: 10:22 Procedure Stop Time: 10:22 Select all DRAINS/GRAFTS/IMPLAN TS that apply: None Estimated Blood Loss: 0 [...] 1024 Cosigner Signature (if applicable): CC: BARRY Mcclelland; Dr. Abram Cameron MD Signed [facility] Colonoscopy Reporton 025 Colonoscopy Report [facility] Medical Records Department [address] [place] [address] Colonoscopy Report MR#: [id number] Acct: [id number] Name: TINY MCCONNELL Rep #: [id number] : 1970 53 From: Tico Hernandez DO PCP: BARRY Dobson Status:REG [facility] Patient Name: Tiny Mcconnell Procedure Date: 05/10/2024 [...] criteria for high risk CPT copyright 2021 [employer]. All rights reserved. The codes documented in this report are preliminary and upon arcade games mechanic review may be revised to meet current compliance requirements. Tico Hernandez DO 05/10/2024 9:12:34 AM This report has been signed electronically. Number of Addenda: 0 Note Initiated On: 05/10/2024 8:37 AM 05/10/24911 Date Tico Hernandez DO Cosigner Signature: Date (if indicated) CC: CELLULAR PLASTICS CUTTER-C Emilee Mcclelland; Tico Hernandez DO Date Dictated: 05/10/24836 Date Transcribed: Senior Care Assistant: TATI Signed [facility] MR/POSTOP.[facility] 05-10-2024 MR/POSTOP.[facility] Medical Records Department [address] [place] [address] Anesthesia Postop Eval I 05/10/24910 MR#: [id number] Acct: [id number] Name: TINY MCCONNELL Rep #: [id number] : 1970 53 From: Juanjose Bolanos PCP: BARRY Dobson Status:REG SDC Y Race: C Location: [place] [address] Anesthesia: Postop Eval I Current Vital Signs [...] Juanjose Owen Signature: Date CC: Signed [facility] MR/[id number] 05-10-2024 MR/POSTOPAN2 [facility] Medical Records Department [address] [place] [address] Anesthesia Postop Eval II 05/10/24917 MR#: [id number] Acct: [id number] Name: TINY MCCONNELL JO Rep #: [id number] : 1970 53 From: Cameron Roman MD PCP: BARRY Dobson Status:REG [facility] Y Race: C Location: [place] [address] Anesthesia Postop Eval I Sum Postop Eval [...] Level: 0 nausea: No Vomiting: No 05/10/24917 Cameron Owen Signature: Date CC: Signed [facility] Cerv Spine 2 or 3 Viewson Cerv Spine 2 or 3 Views [facility] Imaging Services [address] [facility] [place] [address] Cerv Spine 2 or 3 Views MR#: [id number] Acct: [id number] Name: TINY MCCONNELL Rep #: [id number] : 1970 F 53 From: Juan C Sellers MD PCP: BARRY Dobson Status: [facility] Study: Cerv Spine 2 or 3 Views Date of Exam: 02/21/24 Exam# [id number] Ordering Dr: Abram Cameron MD [id number] EXAM: XR CERVICAL SPINE, 4 OR 5 [...] Sellers MD at 0:01 EST , CC: CELLULAR PLASTICS CUTTER-C Emilee Mcclelland; Dr. Abram Cameron MD Senior Care Assistant: Signed [facility] MR/POSTOP.ANE 02-21-2024 MR/POSTOP.[facility] Medical Records Department [address] [place] [address] Anesthesia Postop Eval I 02/21/24 1137 MR#: [id number] Acct: [id number] Name: TINY MCCONNELL Rep #: [id number] : 1970 53 From: Abdullahi Harris MD PCP: BARRY Dobson Status:REG SDC Y Race: C Location: [place] [address] Abdullahi Harris MD on [...] completed: Yes 02/21/241137 Date [facility] Signature: Date CC: Signed [facility] MR/[id number] 02-21-2024 [facility] Medical Records Department [address] [place] [address] Anesthesia Postop Eval II 02/21/24 1326 MR#: [id number] Acct: [id number] Name: TINY MCCONNELL Rep #: [id number] : 1970 53 From: Cameron Roman MD PCP: KAVITA DobsonC Status:[facility] Y Race: C Location: [facility] Anesthesia Postop Eval I Sum Postop Eval [...] No 02/21/24 1326 Date Cameron Roman MD Cosigner Signature: Date CC: Signed [facility] Operative Reporton 4 Operative Report [facility] Medical Records Department [address] [facility] [place] [address] Operative Report 02/21/24 1128 MR#: [id number] Acct: [id number] Name: TINY MCCONNELL JO Rep #: [id number] : 1970 53 From: Abram Cameron MD PCP: BARRY Dobson Status:REG [facility] Location: [place] [address] Operative Report (Standard) Operative Information Date of Procedure: 02/21/24 Pre-Operative Diagnosis: 1 Post-Operative Diagnosis: 1 Surgery/Procedure Performed: 1 inhalation therapist: No Type of Anesthesia: MAC and Topical Anesth RN Documented Start/Stop Times: Operation Date: 02/21/24 09:20 Case Time Into Pre-Op 02/21/24 07:55 Into Room 02/21/24 11:11 Anesthesia Start 02/21/24 11:12 Procedure Start 02/21/24 11:24 Procedure End 02/21/24 11:25 Procedure Start Time: Procedure Stop Time: Select all DRAINS/GRAFTS/IMPLAN TS that apply: None Estimated Blood Loss: 1 [...] Mcclelland; Dr. Abram Cameron MD Signed [facility] Absolute lymphocyte countOrd ered By: Emilee Mcclelland on 07-08-2022 Lymphocytes Auto (Unsp spec) [#/Vol] 2.00 10*3/uL 0.83-4.51 [facility] Basophil percentageOrdered B y: Emilee Mcclelland on 07-08-2022 Basophils/100 WBC (Bld) 0.5 % 0-1 [facility] Bilirubin [Mass/Vol] 0.30 mg/dL 0.20-1.00 [facility] Comment on above: For patients on eltr ombopag therapy, use of Dimension [place] TBIL is not recommended. Chloride [Moles/Vol] 107 mmol/L 98-107 [facility] Cholesterol [Mass/Vol] 231 mg/dL <200 [facility] Comment on above: <200 mg/dL Desirable 200-240 mg/dL Borderline >240 mg/dL High Risk Eosinophils/100 WBC (Bld) 2.0 % 0-5 [facility] Glucose [Mass/Vol] 92 mg/dL 74-106 [facility] Neutrophils (Bld) [#/Vol] 3.9 10*3/uL 2.0-7.7 [facility] Neutrophils/100 WBC (Bld) 60.0 % 47-70 [facility] Potassium [Moles/Vol] 3.6 mmol/L 3.5-5.1 [facility] Protein [Mass/Vol] 7.2 g/dL 6.4-8.2 [facility] Sodium [Moles/Vol] 140 mmol/L 136-145 [facility] Triglyceride [Mass/Vol] 156 mg/dL <199 [facility] Comment on above: The drugs N-Acetylcy steine and Metamizole may falsely depress this assay.Serum Triglycerides Reference Interval Normal <150 mg/dL Borderline high 150 - 199 mg/dL High 200 - 499 mg/dL Very High > or = 500 mg/dL WBC (Bld) [#/Vol] 6.5 10*3/uL 4.4-11.0 [facility] Blood erythrocytes count (nu mber/volume)Ordered By: Emilee Mcclelland on 07-08-2022 RBC (Bld) [#/Vol] 4.82 10*6/uL 4.2-5.4 [facility] Blood hemoglobin measurement (mass/volume)Ordered By: Emilee Mcclelland on 07-08-2022 Hemoglobin (Bld) [Mass/Vol] 14.4 g/dL 12.0-15.0 [facility] Blood lymphocytes/100 leukoc ytesOrdered By: Emilee Mcclelland on 07-08-2022 Lymphocytes/100 WBC (Bld) 31.0 % 19-41 [facility] Blood monocytes/100 leukocyt esOrdered By: Emileerenan Mcclelland on 07-08-2022 Monocytes/100 WBC (Bld) 6.2 % 0-10 [facility] Blood platelet mean volumeOr dered By: Emilee Mcclelland on 07-08-2022 Platelet mean volume (Bld) [Entitic vol] 10.6 fL 6.2-12.0 [facility] Determination of erythrocyte mean corpuscular volume (MCV)Ordered By: Emilee Mcclelland on 07-08-2022 MCV (RBC) [Entitic vol] 89.8 fL 81-99 [facility] Hematocrit Auto (Bld) [Volum e fraction]Ordered By: Emilee Mcclelland on 07-08-2022 Hematocrit (Bld) [Volume fraction] 43.3 % 37-47 [facility] Iron measurement (mass/mass) Ordered By: Emilee Mcclelland on 07-08-2022 Iron (Unsp spec) [Mass/Mass] 48 ug/dL 50-170 [facility] Laboratory - Chemistry and C hemistry - challengeOrdered By: Emilee Mcclelland on 07-08-2022 ALP [Catalytic activity/Vol] 79 U/L 45-117 [facility] ALT [Catalytic activity/Vol] 15 U/L 13-56 [facility] CO2 [Moles/Vol] 26.0 mmol/L 21.0-32.0 [facility] Free T4 [Mass/Vol] 0.90 ng/dL 0.76-1.46 [facility] Globulin (S) [Mass/Vol] 3.4 g/dL 2.2-4.2 [facility] Urea nitrogen/Creatinine [Mass ratio] 12.1 mg/mg 10-20 [facility] Laboratory - Hematology and Cell countsOrdered By: Emilee Mcclelland on 07-08-2022 Erythrocyte distribution width (RBC) [Entitic vol] 41.0 fL 35.1-43.9 [facility] Erythrocyte distribution width (RBC) [Ratio] 12.6 % 11.6-14.6 [facility] Immature granulocytes/100 WBC (Bld) 0.300 % 0.0-0.9 [facility] Comment on above: IG% - Immature Granu locytes (promyelocytes, myelocytes and metamyelocytes) > 1% indicates that a LEFT SHIFT is Present. MCH (RBC) [Entitic mass] 29.9 pg 27.0-32.0 [facility] Nucleated RBC/100 WBC (Bld) [Ratio] 0 % 0-5 [facility] MCHC Auto (RBC) [Mass/Vol]Or dered By: Emilee Mcclelland on 07-08-2022 MCHC (RBC) [Mass/Vol] 33.3 g/dL 32-36 [facility] No Panel InformationOrdered By: Emilee Mcclelland on 07-08-2022 Estimated GFR (MDRD) Amer 94 mL/min >60 [facility] Comment on above: GFR Calc Estimated GFR (MDRD) Non-Af Amer 78 mL/min >60 [facility] Comment on above: Non- GFR Calc Thyroid Stimulating Hormone (TSH) 3.25 uIU/mL 0.358-3.74 [facility] Vitamin D 25-Hydroxy 32.2 ng/mL [facility] Comment on above: Vitamin D 25(OH) Sta tus Range Deficiency <20 ng/mL (50nmol/L) Insufficiency 20 - 30 ng/mL (50 - 75 nmol/L) Sufficiency 30 - 100 ng/mL (75 - 250 nmol/L) Toxicity >100 ng/mL (>250 nmol/L) Platelets bldOrdered By: Anila Mcclelland on 07-08-2022 Platelets (Bld) [#/Vol] 220 10*3/uL 150-450 [facility] Serum or plasma albumin adebayo urement (mass/volume)Ordered By: Emilee Mcclelland on 07-08-2022 Albumin [Mass/Vol] 3.8 g/dL 3.2-5.0 [facility] Serum or plasma albumin/glob ulin mass ratioOrdered By: Emilee Mcclelland on 07-08-2022 Albumin/Globulin [Mass ratio] 1.1 {ratio} 0.9-2.4 [facility] Serum or plasma calcium adebayo urement (mass/volume)Ordered By: Emilee Mcclelland on 07-08-2022 Calcium [Mass/Vol] 8.8 mg/dL 8.5-10.1 [facility] Serum or plasma cholesterol in HDL measurement (mass/volume)Ordered By: Emilee Mcclelland on 07-08-2022 Cholesterol in HDL [Mass/Vol] 43 mg/dL >40 [facility] Comment on above: The drugs N-Acetylcy steine and Metamizole may falsely depress this assay. Reference Range HDL <40 mg/dL Low HDL Cholesterol HDL >or= 60 mg/dL High HDL Cholesterol Serum or plasma cholesterol in VLDL measurement (mass/volume)Ordered By: Emilee Mcclelland on 07-08-2022 Cholesterol in VLDL [Mass/Vol] 31 mg/dL 5-40 [facility] Serum or plasma creatinine m easurement (mass/volume)Ordered By: Emilee Mcclelland on 07-08-2022 Creatinine [Mass/Vol] 0.82 mg/dL 0.55-1.02 [facility] Comment on above: The validity of the calculated GFR & GFRAA in patients over 70 years has not been determined. Clinical correlation is essential. Serum or plasma ferritin derek surement (mass/volume)Ordered By: Emilee Mcclelland on 07-08-2022 Ferritin [Mass/Vol] 26 ng/mL 8-252 [facility] Serum or plasma low density lipoprotein (LDL) cholesterol measurement (mass/volume)Ordered By: Emilee Mcclelland on 07-08-2022 Cholesterol in LDL [Mass/Vol] 157 mg/dL 0-130 [facility] Serum or plasma urea nitroge n measurement (mass/volume)Ordered By: Emilee Mcclelland on 07-08-2022 Urea nitrogen [Mass/Vol] 10 mg/dL 7-18 [facility] Thin prep Papanicolaou smear with manual screeningOrdered By: Emilee Mcclelland on 07-08-2022 Thin prep Papanicolaou smear with manual screening 8 U/L 15-37 [facility] Thin prep Papanicolaou smear with manual screening 7 5-15 [facility] Vital Signs Date Time Vital Sign Value Performing Clinician Faci lity 07-24-2024 12:10-0400 Body temperature 97 [degF] Emileerenan Mcclelland CELLULAR PLASTICS CUTTER-C Work Phone: [facility] 07-24-2024 12:10-0400 Diastolic blood pressure 95 mm[Hg] Emilee Stas CELLULAR PLASTICS CUTTER-C Work Phone: [facility] 07-24-2024 12:10-0400 Heart rate 61 /min Emilee Mcclelland CELLULAR PLASTICS CUTTER-C Work Phone: [facility] 07-24-2024 12:10-0400 Respiratory rate 16 /min Emileerenan Mcclelland CELLULAR PLASTICS CUTTER-C Work Phone: [facility] 07-24-2024 12:10-0400 SaO2% (BldA) [Mass fraction] 99 % Emileerenan Mcclelland CELLULAR PLASTICS CUTTER-C Work Phone: [facility] 07-24-2024 12:10-0400 Systolic blood pressure 143 mm[Hg] Emilee Mcclelland CELLULAR PLAST[employer] CUTTER-C Work Phone: [facility] 07-24-2024 10:59-0400 Body height 162.56 cm Emilee Stas CELLULAR PLASTICS CUTTER-C Work Phone: [facility] 07-24-2024 10:59-0400 Body mass index (BMI) [Ratio] 36.7 kg/m2 Emilee Stas CELL[employer] P[employer] CUTTER-C Work Phone: [facility] 07-24-2024 10:59-0400 Body weight 97 kg Emilee Stas CELL[employer] PLAST[employer] CUTTER-C Work Phone: [facility] 05-22-2024 10:40-0400 Body temperature 97.5 [degF] Emilee Stas CELL[employer] PLAST[employer] CUTTER-C Work Phone: [facility] 05-22-2024 10:40-0400 Diastolic blood pressure 77 mm[Hg] Emilee Stas CELLULAR P[employer] CUTTER-C Work Phone: [facility] 05-22-2024 10:40-0400 Heart rate 63 /min Emilee Stas CELL[employer] P[employer] CUTTER-C Work Phone: [facility] 05-22-2024 10:40-0400 Respiratory rate 16 /min Emilee Stas CELL[employer] PLAST[employer] CUTTER-C Work Phone: [facility] 05-22-2024 10:40-0400 SaO2% (BldA) [Mass fraction] 98 % Emilee Stas CELL[employer] P[employer] CUTTER-C Work Phone: [facility] 05-22-2024 10:40-0400 Systolic blood pressure 127 mm[Hg] Emilee Stas CELL[employer] PLAST[employer] CUTTER-C Work Phone: [facility] 05-22-2024 09:07-0400 Body height 162.56 cm Emilee Stas CELL[employer] P[employer] CUTTER-C Work Phone: [facility] 05-22-2024 09:07-0400 Body mass index (BMI) [Ratio] 36 kg/m2 Emilee Stas CELL[employer] PLAST[employer] CUTTER-C Work Phone: [facility] 05-22-2024 09:07-0400 Body weight 95.2 kg Emilee Stas CELL[employer] PLAST[employer] CUTTER-C Work Phone: [facility] 05-10-2024 09:20-0500 Body temperature 97.8 [degF] Emilee Stas CE[employer] P[employer] CUTTER-C Work Phone: [facility] 05-10-2024 09:20-0500 Diastolic blood pressure 66 mm[Hg] Emilee Stas CE[employer] P[employer] CUTTER-C Work Phone: [facility] 05-10-2024 09:20-0500 Heart rate 68 /min Emilee Stas CE[employer] P[employer] CUTTER-C Work Phone: [facility] 05-10-2024 09:20-0500 Respiratory rate 18 /min Emilee Stas CELL[employer] P[employer] CUTTER-C Work Phone: [facility] 05-10-2024 09:20-0500 SaO2% (BldA) [Mass fraction] 98 % Emilee Stas CELLULAR PLASTICS CUTTER-C Work Phone: [facility] 05-10-2024 09:20-0500 Systolic blood pressure 117 mm[Hg] Emilee Stas CELL[employer] PLAST[employer] CUTTER-C Work Phone: [facility] 05-10-2024 08:04-0500 Body mass index (BMI) [Ratio] 34.8 kg/m2 Emilee Stas CE[employer] P[employer] CUTTER-C Work Phone: [facility] 05-10-2024 08:04-0500 Body weight 92 kg Emilee Stas CELL[employer] P[employer] CUTTER-C Work Phone: [facility] 02-21-2024 11:45-0500 Body temperature 97.9 [degF] Emilee Stas CE[employer] P[employer] CUTTER-C Work Phone: [facility] 02-21-2024 11:45-0500 Diastolic blood pressure 75 mm[Hg] Emilee Stas CELL[employer] PLAST[employer] CUTTER-C Work Phone: [facility] 02-21-2024 11:45-0500 Heart rate 64 /min Emilee Stas CELL[employer] PLAST[employer] CUTTER-C Work Phone: [facility] 02-21-2024 11:45-0500 Respiratory rate 16 /min Emilee Stas CELLULAR PLASTICS CUTTER-C Work Phone: [facility] 02-21-2024 11:45-0500 SaO2% (BldA) [Mass fraction] 100 % Emilee Stas CELLULAR PLASTICS CUTTER-C Work Phone: [facility] 02-21-2024 11:45-0500 Systolic blood pressure 135 mm[Hg] Emilee Mcclelland CELL[employer] PLAST[employer] CUTTER-C Work Phone: [facility] 02-21-2024 09:56-0500 Body mass index (BMI) [Ratio] 31.7 kg/m2 Emilee Mcclelland CELL[employer] P[employer] CUTTER-C Work Phone: [facility] 02-21-2024 09:56-0500 Body weight 83.91 kg Emilee Mcclelland CELL[employer] PLAST[employer] CUTTER-C Work Phone: [facility] 02-21-2024 08:09-0500 Body mass index (BMI) [Ratio] 33.7 kg/m2 Emilee Stas CELLULAR PLASTICS CUTTER-C Work Phone: [facility] 02-21-2024 08:09-0500 Body weight 92 kg Emilee Mcclelland CELLULAR PLASTICS CUTTER-C Work Phone: [facility] Encounters Encounter Date Encounter Type Care Provider Facility Start: 10-23-2024 ambulatory Abram Cameron Facilit y:[facility] Start: 10-18-2024 ambulatory Abram Cameron Facilit y:[facility] Start: 09-01-2024 End: 09-01-2024 ambulatory Emilee Mcclelland CELLULAR PLASTICS CUTTER-C Work Phone: [facility] [place] Start: 09-01-2024 End: 09-01-[address] Abram Cameron MD -[facility] [place] Work Phone: Start: 09-01-2024 End: 09-01-2024 ambulatory Abram Cameron Facility:[facility] Start: 08-19-2024 End: 08-19-2024 ambulatory Emilee Quinterosgar CELLULAR PLASTICS CUTTER-C Work Phone: [facility] Work Phone: Start: 08-19-2024 End: 08-19-2024 Patient encounter procedure Gladys Gonzalez -[facility] Work Phone: Start: 08-19-2024 End: 08-19-2024 ambulatory Gladys Carlos Facility:[facility] Start: 08-15-2024 End: 08-15-2024 ambulatory Emilee Stas CELLULAR PLASTICS CUTTER-C Work Phone: [facility] Work Phone: Start: 08-15-2024 End: 08-15-[address] Abram Cameorn MD -Physical Therapy Work Phone: Start: 08-15-[address] Bharat Cameron MD -Physical Therapy Work Phone: Start: 08-11-2024 End: 08-11-2024 ambulatory Emilee Stas CELLULAR PLASTICS CUTTER-C Work Phone: [facility] Work Phone: Start: 08-11-2024 End: 08-11-[address] Abram Cameron MD -[facility] [place] Work Phone: Start: 08-11-2024 End: 08-11-2024 ambulatory Abram Cameron Facility:[facility] Start: 07-24-2024 End: 07-24-2024 Admission to same day surgery center Dr. Abram Cameron MD -[facility] Start: 07-24-2024 End: 07-24-2024 ambulatory Emilee Stas CELLULAR PLASTICS CUTTER-C Work Phone: [facility] Work Phone: Start: 07-21-[address] Bharat Cameron MD -Physical Therapy Work Phone: Start: 06-14-2024 End: 06-14-2024 ambulatory Emilee Stas CELLULAR P[employer] CUTTER-C Work Phone: [facility] Work Phone: Start: 06-14-2024 End: 06-14-[address] Abram Cameron MD -Radiology, [place] Work Phone: Start: 06-14-2024 End: 06-14-2024 ambulatory Abram Cameron Facility:[facility] Start: 05-22-2024 End: 05-22-2024 Admission to same day surgery center Dr. Abram Cameron MD -[facility] Start: 05-22-2024 End: 05-22-2024 ambulatory Emilee Mcclelland CELLULAR PLASTICS CUTTER-C Work Phone: [facility] Work Phone: Start: 05-10-2024 Non-patient / Non-visit Tico Casas nd DO -[facility] Start: 05-10-2024 End: 05-10-2024 Admission to same day surgery center Ticogautam Hernandez DO -Endoscopy Work Phone: Start: 05-10-2024 End: 05-10-2024 ambulatory Tico [place] Facility:[facility] Start: 02-21-2024 Non-patient / Non-visit Emilee Mcclelland CELLULAR PLASTICS CUTTER-C Work Phone: -[facility] Work Phone: Start: 02-21-2024 ambulatory [facility] Facility:[facility] Start: 02-21-2024 End: 02-21-2024 Admission to same day surgery center Dr. Abram Cameron MD -[facility] Start: 02-21-2024 End: 02-21-2024 ambulatory Abram Cameron Facility:[facility] Start: 07-14-2022 End: 07-14-2022 ambulatory [facility] Work Phone: Start: 07-14-2022 End: 07-14-2022 Patient encounter procedure [facility]-Outpatient Breast Imaging Start: 07-08-2022 End: 07-08-2022 ambulatory [facility] Work Phone: Start: 07-08-2022 End: 07-08-2022 Patient encounter procedure [facility]-Juan, [place] [facility] Procedures Date Procedure Procedure Detail Performing Clinician Start: 09-01-2024 X-ray of cervical spine Emilee Mcclelland CELLULAR PLASTICS CUTTER-C Work Phone: Start: 08-19-2024 MRI of lumbar spine Anila Mcclelland CELLULAR PLASTICS CUTTER-C Work Phone: Start: 08-11-2024 Plain X-ray of shoulder Emilee Mcclelland CELL[employer] PLASTICS CUTTER-C Work Phone: Start: 07-24-2024 Local anesthetic sac ral epidural block Emilee Mcclelland CELL[employer] PLASTICS CUTTER-C Work Phone: Start: 07-24-2024 Fluoroscopy guided injection of cervical spinal nerve root Emilee Mcclelland CELL[employer] PLAST[employer] CUTTER-C Work Phone: Start: 07-24-2024 Injection using fluoroscopic guidance Emilee Mcclelland CELLULAR PLASTICS CUTTER-C Work Phone: Start: 06-14-2024 Complete x-ray serie s of lumbar spine with bending views Emilee Mcclelland CELLULAR PLASTICS CUTTER-C Work Phone: Start: 05-22-2024 Fluoroscopy guided injection of cervical spinal nerve root Emilee Mcclelland CELL[employer] PLAST[employer] CUTTER-C Work Phone: Start: 05-22-2024 Injection using fluoroscopic guidance Emilee Mcclelland CELL[employer] PLAST[employer] CUTTER-C Work Phone: Start: 05-22-2024 Local anesthetic cer vical facet joint nerve block Emilee Mcclelland CELL[employer] PLAST[employer] CUTTER-C Work Phone: Start: 02-21-2024 Local anesthetic cer vical facet joint nerve block Emilee Mcclelland CELL[employer] P[employer] CUTTER-C Work Phone: Start: 02-21-2024 Fluoroscopy guided injection of cervical spinal nerve root Emilee Mcclelland CELL[employer] PLAST[employer] CUTTER-C Work Phone: Start: 02-21-2024 Injection of facet joint Emilee Mcclelland CE[employer] PLAST[employer] CUTTER-C Work Phone: Start: 02-21-2024 X-ray of cervical spine Emilee Mcclelland CELL[employer] PLASTICS CUTTER-C Work Phone: Start: 07-14-2022 Screening mammography Plan of Treatment Date Care Activity Detail Author Start: 07-24-2024 Anes dx/ther nerve block/injection prone pos ANESTH N BLOCK/INJ PRONE [facility] Start: 07-24-2024 Njx dx/ther sbst intrlmnr lmbr/sac w/img gdn NJX INTERLAMINAR LMBR/SAC [facility] Start: 07-24-2024 Fluoroscopy guided injection of cervical spinal nerve root [facility] Start: 07-24-2024 Injection using fluoroscopic guidance [facility] Start: 07-24-2024 Patient discharge [facility] Start: 05-22-2024 Anes dx/ther nerve block/injection prone pos ANESTH N BLOCK/INJ PRONE [facility] Start: 05-22-2024 Njx dx/ther agt pvrt facet jt crv/thrc 1 level INJ PARAVERT F JNT C/T 1 [facility] Start: 05-22-2024 Njx dx/ther agt pvrt facet jt crv/thrc 2nd level INJ PARAVERT F JNT C/T 2 [facility] Start: 05-22-2024 Njx dx/ther agt pvrt facet jt crv/thrc 3+ level INJ PARAVERT F JNT C/T 3 [facility] Start: 05-22-2024 Fluoroscopy guided injection of cervical spinal nerve root [facility] Start: 05-22-2024 Injection using fluoroscopic guidance [facility] Start: 05-22-2024 Patient discharge [facility] Start: 05-10-2024 Colonoscopy flx dx w/collj spec when pfrmd DIAGNOSTIC COLONOSCOPY [facility] Start: 05-10-2024 Patient discharge [facility] Start: 02-21-2024 Patient discharge [facility] Colonoscopy [facility] Patient referral [facility] Work Phone: Payers Date Payer Category Payer Self-pay [id number] 2024 Unknown [id number] 2016 Unknown [id number] 2014 Medicaid [id number] 2003 Medicare [id number] Unknown [facility] *DO NOT USE* [id number] Unknown [id number] 2.16.8 [id number] Unknown [id number] 2.16.8 [id number] Unknown [id number] 2.16.8 [id number] Unknown [id number] 2.16.8 [id number] Unknown [id number] 2.16.8 [id number] Unknown [id number] 2.16.8 [id number] Unknown [id number] 2.16.8 [id number] Unknown [id number] 2.16.8 [id number] Unknown [id number] 2.16.8 [id number] Unknown [id number] 2.16.8 [id number] Unknown [id number] 2.16.8 [id number] Unknown [id number] 2.16.8 [id number] Unknown [id number] 2.16.8 [id number] Social History Date Type Detail Facility Start: 04-03-2020 Tobacco smoking status NHIS Unknown if ever smoked [facility] Start: 1970 Sex Assigned At Female [facility] Start: 05-09-2024 Tobacco smoking status NHIS Never smoked tobacco (finding) [facility] Start: 05-22-2024 End: 06-20-2024 Sex Female (finding) [facility] NEGATED: Highlighted row Not [facility] Goals Date Patient Goal Desired Activity /State Mental Status Date Assessment Result Facility 07-24-2024 Cognitive function Voice/Name [facility] Work Phone: 05-22-2024 Cognitive function Voice/Name [facility] Work Phone: 05-10-2024 Cognitive function Voice/Name [facility] Work Phone: 02-21-2024 Cognitive function Voice/Name [facility] Work Phone: Clinical Notes 05-10-2024 to 09-01-2024 Note Date & Type Note Facility 09-01-2024 Radiology Diagnostic study note [facility] Imaging Services [address] [place] [address] Cerv Spine Obl/Flex/Ext Comp MR#: [id number] Acct: [id number] Name: TINY MCCONNELL Rep #: [id number] : 1970 F 53 From: Cecelia Barkley MD PCP: KAVITA DobsonC Status: REG CLI Study:Cerv Spine Obl/Flex/Ext Comp Date of Ex am: 09/01/24 Exam# [id number] Ordering Dr: Abram Cameron MD EXAM: XR Cervical Spine, 6 or More Views CLINICAL INDICATION: CERVICAL SPINE PAIN TECHNIQUE: Frontal, lateral, oblique and flexion/extension views of the cervical spine. COMPARISON: No relevant prior studies available. FINDINGS: VERTEBRAE: Unremarkable. Normal alignment. No acute fracture or significant dynamic instability. DISC SPACES: No acute findings. No significant narrowing. SOFT TISSUES: Unremarkable. RAD/Cerv Spine Obl/Flex/Ext Comp IMPRESSION: No acute fracture or significant dynamic instability. Reading Location: [id number] CC: CELL[employer] PLASTICS CUTTER-C Emilee Mcclleland; Dr. Abram Cameron MD ~ Senior Care Assistant: Signed [facility] 08-15-2024 Discharge summary Note Date/Time August 15, 2024 7:00 pm [facility] Physical Therapy [facility] [address] [place] [address]. [address] [place] [address] / REHABILITATION SERVICES DISCHARGE SUMMARY MR#: [id number] Acct: [id number] Name: TINY MCCONNELL #: [id number] : 1970 53 From: Debbie Palmer MP T Referring Dr.: Dr. Abram Cameron MD Status: REG RCR Insurance: [employer]/[facility] SELF PAY INSURANCE Discharge Summary D/C summary: [...] please feel free to call me at [phone]. Thank you for the referral of thispatient. Sincerely, THANIA Chung Balance/Gait/Functional tests Balance/Special Test Scores Oswestry Low Back Score: 20 Improvement % Improvement: 40 <Electronically signed by Debbie Palmer MPT> 08/15/24 1100 CC: CELLULAR PLASTICS CUTTERVijay Mcclelland; Dr. Abram Cameron MD ~ Signed [facility] Work Phone: 1(325) 351-292606-10-2025 Discharge summary [facility] Physical [facility] [address] [place] [address] / REHABILITATION SERVICES DISCHARGE SUMMARY MR#: [id number] Acct: [id number] Name: TINY MCCONNELL Rep #: [id number] : 1970 53 From: Debbie Lugo Referring Dr.: Dr. Abram Cameron MD Status: REG RCR Insurance: [employer]/[facility] SELF PAY INSURANCE Discharge Summary D/C summary: [...] days [facility] is not in [facility]. [facility] She sees the Dr in a [...] Plan Plan: DC PT back to Dr. Macias Information Discharge Comments: DC PT d/c sentence: If there are questions or concerns regarding this patient's physical therapy, please feel free to call me at [phone]. Thank you for the referral of thispatient. Sincerely, Debbie Palmer, MPT Balance/Gait/Functional tests Balance/Special Test Scores Oswestry Low Back Score: 20 Improvement % Improvement: 40 08/15/24 1100 CC: BARRY Mcclelland; Dr. Abram Cameron MD ~ Signed [facility]06-06-2025 Radiology Diagnostic study note [facility] Imaging Services [address] [place] [address] Shoulder min 2 Views MR#: [id number] Acct: [id number] Name: TINY MCCONNELL JO Rep #: [id number] : 1970 F 53 From: Atul Pavon MD PCP: BARRY Dobson Status: REG CLI Study:Shoulder min 2 Views Date of Exam: 08/11/24 Exam# [id number] Ordering Dr: Abram Cameron MD PROCEDURE: SHOULDER MIN 2 VIEWS 08/11/2024 REASON FOR EXAM: RIGHT SHOULDER PAIN TECHNIQUE: Four view right shoulder series. COMPARISON: None. RAD/Shoulder min 2 Views IMPRESSION: No significant arthritic process or joint space narrowing is seen. Satisfactory osseous alignment is present. No fracture, dislocation, or other significant osseous or joint space abnormality is seen. Reading Location: [address] CC: BARRY Mcclelland; Dr. Abram Cameron MD ~ Senior Care Assistant: Signed [facility]05-19-2025 Consult note [facility] Medical Records Department [address] [place] [address] Anesthesia Postop Eval I 07/24/24 1209 MR#: [id number] Acct: [id number] Name: TINY MCCONNELL JO Rep #:[id number] : 1970 53 From: Pradeep GRAHAM PCP: BARRY Dobson Status:REG SDC Y Race: C Location: [place] [address] Anesthesia: Postop Eval I Current Vital Signs [...] Postop Eval 1 completed: Yes 07/24/24 1210 OPERATING SYSTEMS SPECIALIST> Date _ Pradeep Kent OPERATING SYSTEMS SPECIALIST Cosigner Signature: Date CC: ~ Signed [facility]05-19-2025 Procedure note [facility] Medical Records Department [address] [place] [address] Operative Report 07/24/24 1159 MR#: [id number] Acct: [id number] Name: TINY MCCONNELL JO Rep #:[id number] : 1970 53 From: Abram Cameron MD PCP: BARRY Dobson Status:REG [facility] Location: [place] [address] Operative Report (Standard) Operative Information Date of Procedure: 07/24/24 Pre-Operative Diagnosis: Lumbosacral radiculopathy, lumbosacral degenerative disc disease, lumbosacral spinal stenosis Post-Operative Diagnosis: Lumbosacral radiculopathy, lumbosacral degenerative disc disease, lumbosacral spinal stenosis Surgery/Procedure Performed: Diagnostic/therapeutic caudal epidural steroid injection under fluoroscopic guidance inhalation therapist: No Type of Anesthesia: Local MAC RN [...] applicable): CC: BARRY Mcclelland; Dr. Abram Cameron MD~ Signed [facility]05-19-2025 Consult note [facility] Medical Records Department [address] [place] [address] Pre-Anesthesia Evaluation 07/24/24 1100 MR#: [id number] Acct: [id number] Name: TINY MCCONNELL Rep #:[id number] : 1970 53 From: Cameron Roman MD PCP: KAVITA DobsonC Status:REG SDC Y Race: C Location: [place] [address]-1 ASA Classification* ASA Classification ASA Classification: 2 [...] 07/19/23 Creatinine 0.85 mg/dL (0.55-1.02) 07/19/23 14:02 05/13/24 Glucose 79 mg/dL (74-106) 07/19/23 14:02 07/19/23 TSH 3.25 uIU/mL (0.358-3.74) 07/08/22 10:54 COAG Pre-Assessment Diagnosis/Proposed Procedure Planned Operative Procedure(s): Caudal block. 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 Hx Respiratory Tract Infection No 05/09/24 14:07 STOP Sleep Apnea STOP Sleep Apnea - 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: STOP Sleep Apnea - 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 Hx Hypertension No 07/18/24 12:05 Hx Sleep [...] Tobacco Use History 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 Specify any problems Hx of Preganancy in last 3 Months Nurse Filling Out Transfusion & Questions: Date: Time: Patient unable to answer at this time (ie. 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 Hx Now Gestational Age (in weeks): EDC: [...] (Ambien) 10 mg PO QHS 11/10/18 History ohlptml-vposrclgjlndf-regiqpma 250 1 tab PO PRN 05/03/24 History [...] 05/21/24 History mcg (2,000 unit) capsule omega 7-lvz-cia-fish oil 1,200 mg 1 cap PO DAILY 02/2005/21/24 History (144 mg-216 mg) capsule (Fish Oil) omeprazole 20 mg capsule,delayed 20 mg PO QHS PRN gerd 02/21/24 Unknown History release sumatriptan succinate 6 mg/0.5 mL 6 mg subcut Q1-4H FL N migraine 02/21/24 Unknown History subcutaneous cartridge [...] spouse and children housing: house current occupation: [employer] Smoking Status: Never smoker alcohol intake: never substance use type: does not use do you feel safe at home: Yes Review of Systems (Anesthesia) ROS Narrative System reviewed and no additional complaints, except as documented. 07/24/24 1109 > Date _ Cameron Roman MD Cosigner Signature: Date CC: ~ Signed [facility]04-10-2025 Radiology Diagnostic study note [facility] Imaging Services [address] [place] [address] L/S Spine w Bend Min 6 Vw MR#: [id number] Acct: [id number] Name: TINY MCCONNELL Rep #: [id number] : 1970 F 53 From: Dayday Garcia MD PCP: KAVITA DobsonC Status: REG CLI Study:L/S Spine w Bend Min 6 Vw Date of Exam: 06/14/24 Exam# [id number] Ordering Dr: Abram Cameron MD PROCEDURE: L/S [...] acute fracture or traumatic malalignment. Reading Location: [id number] CC: CELLULAR PLASTICS CUTTER-C Emilee Mcclelland; Dr. Abram Cameron MD ~ Senior Care Assistant: Signed [facility]03-17-2025 Consult note [facility] Medical Records Department [address] [place] [address] Anesthesia Postop Eval I 05/22/24 1029 MR#: [id number] Acct: [id number] Name: TINY MCCONNELL Rep #:[id number] : 1970 53 From: Kelly Wiseman CRNA PCP: BARRY Dobson Status:REG SDC Y Race: C Location: [place] [address] Anesthesia: Postop Eval I Current Vital Signs [...] Eval 1 completed: Yes 05/22/24 1030 c OPERATING SYSTEMS SPECIALIST> Date _ Kelly Nathanosevic OPERATING SYSTEMS SPECIALIST Cosigner Signature: Date CC: ~ Signed [facility]03-17-2025 Procedure note [facility] Medical Records Department [address] [place] [address] Operative Report 05/22/24 1022 MR#: [id number] Acct: [id number] Name: ENEDINAFATMATA Rep #:[id number] : 1970 53 From: Abram Cameron MD PCP: BARRY Dobson Status:REG [facility] Location: [place] [address] Operative Report (Standard) Operative Information Date of Procedure: 05/22/24 Pre-Operative Diagnosis: Cervical spondylosis, cervical facet arthropathy, cervical degenerative disc disease Post-Operative Diagnosis: Cervical spondylosis, cervical degenerative disc disease, cervical facet arthropathy Surgery/Procedure Performed: Right-sided cervical facet steroid injection C4-5, C5-6, C6-7 inhalation therapist: No Type of Anesthesia: Local MAC RN [...] 1024 Cosigner Signature (if applicable): CC: BARRY Mcclelland; Dr. 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 Female HX of Motion Sickness HX of N/V After Surgery Non-Smoker Duration of Surgery greater than 60 minutes Number of Risk Factors PONV Score Height & Weight Height & Weight: Anesthesia: Height & Weight Height 5 ft 4 in 05/22/24 09:07 Weight: 95.2 kg 05/22/24 09:07 Body Mass Index (BMI) 36.0 05/22/24 09:07 Respiratory Assessment Respiratory Assessment - 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: Respiratory Tract Infection Hx - 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 Hx Respiratory Tract Infection No 05/09/24 14:07 STOP Sleep Apnea STOP Sleep Apnea - 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: STOP Sleep Apnea - 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 Hx Hypertension No 05/09/24 14:07 Hx Sleep [...] Tobacco Use History 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 Specify any problems Hx of Preganancy in last 3 Months Nurse Filling Out Transfusion & Questions: Date: Time: Patient unable to answer at this time (ie. 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 Hx Now Gestational Age (in weeks): EDC: [...] (Ambien) 10 mg PO QHS 11/10/18 History ezkiosk-mozwnqggvlwki-fjewnrfl 250 1 tab PO PRN 05/03/24 History [...] 05/21/24 History mcg (2,000 unit) capsule omega 1-qcv-xxn-fish oil 1,200 mg 1 cap PO DAILY 02/2005/21/24 History (144 mg-216 mg) capsule (Fish Oil) omeprazole 20 mg capsule,delayed 20 mg PO QHS PRN gerd 02/21/24 Unknown History release sumatriptan succinate 6 mg/0.5 mL 6 mg subcut Q1-4H FL N migraine 02/21/24 Unknown History subcutaneous cartridge [...] spouse and children housing: house current occupation: [employer] Smoking Status: Never smoker alcohol intake: never substance use type: does not use do you feel safe at home: Yes Review of Systems (Anesthesia) ROS Narrative System reviewed and no additional complaints, except as documented. 05/22/24 1009 a> Date _ Sulema Owen Signature: Date CC: ~ Signed [facility]03-05-2025 Evaluation note* Diagnosis Onset Date Resolution Status Admit Date Encounter for screening for malignant neoplasm of colon acute Nuno h 2024 7:47am [facility] Work Phone: [phone] 599-291103-05-2025 [facility] Medical Records Department [address] [place] [address] History Physical Exam 05/10/24 0830 MR#: [id number] Acct: [id number] Name: TINY MCCONNELL Rep #: [id number] : 1970 53 From: Tico Friend DO PCP: BARRY Dobson Status:REG [facility] [place]: [place] [address] HPI - General General Date of Admission: 05/10/24 Date of Service: 05/10/24 Chief Complaint: Screening colon HPI Narrative TINY MCCONNELL, is a 53 F who presents today for her first colonoscopy. She is having a colonoscopy in the past. She has a past medical history of mild hypertension, GERD and mild depression. All of those are controlled with medications. [facility] Medical History Wears glasses Arthritis Low iron Migraine headache GERD (gastroesophageal reflux disease) Non-smoker HTN (hypertension) Depression Anxiety Contact dermatitis due to plant h/o ulnar nerve release Fibromyalgia Anemia Home Medications ???Medication ???Instructions ???Recorded ???Last Taken ???Type zolpidem 5 mg tablet (Ambien) 10 mg PO QHS 11/10/18 02/20/24 His tory kzeeybh-jcfctiavphxhm-lwipasci 250 1 tab PO PRN 04/03/20 05/03/24 [...] wn History mcg (2,000 unit) capsule omega 1-dyf-ann-fish oil 1,200 mg 1 cap PO DAILY [...] spouse and children housing: house current occupation: [employer] Smoking Status: Never smoker alcohol intake: never [...] sepsis, perforation, need for (more content not included)...[facility] Sulema Will [facility] Note Date/Time May 22, 2024 10: 09am [facility] Medical Records Department [address] [place] [address] Pre-Anesthesia Evaluation 05/22/24 1007 MR#: [id number] Acct: [id number] Name: TINY MCCONNELL Rep #:[id number] : 1970 53 From: Sulema Will PCP: BARRY Dobson Status:REG SDC Y Race: C Location: [place] [address] ASA Classification* ASA Classification ASA Classification: 2 [...] under flouroscopy 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 Female HX of Motion Sickness HX of N/V After Surgery Non-Smoker Duration of Surgery greater than 60 minutes Number of Risk Factors PONV Score Height & Weight Height & Weight: Anesthesia: Height & Weight Height 5 ft 4 in 05/22/24 09:07 Weight: 95.2 kg 05/22/24 09:07 Body Mass Index (BMI) 36.0 05/22/24 09:07 Respiratory Assessment Respiratory Assessment - 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: Respiratory Tract Infection Hx - 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 Hx Respiratory Tract Infection No 05/09/24 14:07 STOP Sleep Apnea STOP Sleep Apnea - 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: STOP Sleep Apnea - 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 Hx Hypertension No 05/09/24 14:07 Hx Sleep [...] Tobacco Use History 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 Specify any problems Hx of Preganancy in last 3 Months Nurse Filling Out Transfusion & Questions: Date: Time: Patient unable to answer at this time (ie. 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 Hx Now Gestational Age (in weeks): EDC: Hx Hx Para Hx Section SAB No 05/09/24 14:07 [facility] Medical History Wears glasses Arthritis Low iron Migraine headache GERD (gastroesophageal reflux disease) Non-smoker HTN (hypertension) Depression Anxiety Contact dermatitis due to plant h/o ulnar nerve release Fibromyalgia Anemia Home Medications ?Medication ?Instructions ?Recorded ?Last Taken ?Type zolpidem 5 mg tablet (Ambien) 10 mg PO QHS 11/10/18 History rhmuqyi-yoknyekvxkzqc-xxterifq 250 1 tab PO PRN 05/03/24 History [...] 05/21/24 History mcg (2,000 unit) capsule omega 4-iub-rxz-fish oil 1,200 mg 1 cap PO DAILY 02/2005/21/24 History (144 mg-216 mg) capsule (Fish Oil) omeprazole 20 mg capsule,delayed 20 mg PO QHS PRN gerd 02/21/24 Unknown History release sumatriptan succinate 6 mg/0.5 mL 6 mg subcut Q1-4H FL N migraine 02/21/24 Unknown History subcutaneous cartridge [...] spouse and children housing: house current occupation: [employer] Smoking Status: Never smoker alcohol intake: never substance use type: does not use do you feel safe at home: Yes Review of Systems (Anesthesia) ROS Narrative System reviewed and no additional complaints, except as documented. 05/22/24 1009 <Electronically signed by Sulema james> Date _ Sulema Owen Signature: Date CC: ~ Signed [facility] Work Phone: Consult note Author Kelly Wiseman [facility] Note Date/Time May 22, 2024 10: 30am [facility] Medical Records Department [address] [place] [address] Anesthesia Postop Eval I 05/22/24 1029 MR#: [id number] Acct: [id number] Name: TINY MCCONNELL Rep #:[id number] : 1970 53 From: Kelly Wiseman CRNA PCP: BARRY Dobson Status:REG SDC Y Race: C Location: [place] [address] Anesthesia: Postop Eval I Current Vital Signs [...] 05/22/24 1030 <Electronically signed by Kelly newton CRNA> Date _ Kelly Wiseman OPERATING SYSTEMS SPECIALIST Cosigner Signature: Date CC: ~ Signed [facility] Work Phone: Consult note Author Cameron bari [facility] Note Date/Time July 24, 2024 11:09 am [facility] Medical Records Department [address] [facility] [place] [address] Pre-Anesthesia Evaluation 07/24/24 1100 MR#: [id number] Acct: [id number] Name: TINY MCCONNELL Rep #:[id number] : 1970 53 From: Cameron Roman MD PCP: Emilee Stas, CELLULAR PLASTICS CUTTER-C Status:REG SDC Y Race: C [facility]: [facility] ASA Classification* ASA Classification ASA Classification: 2 [...] Caudal block. 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 Hx Respiratory Tract Infection No 05/09/24 14:07 STOP Sleep Apnea STOP Sleep Apnea - 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: STOP Sleep Apnea - 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 Hx Hypertension No 07/18/24 12:05 Hx Sleep [...] Tobacco Use History 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 Specify any problems Hx of Preganancy in last 3 Months Nurse Filling Out Transfusion & Questions: Date: Time: Patient unable to answer at this time (ie. 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 Hx Now Gestational Age (in weeks): EDC: [...] (Ambien) 10 mg PO QHS 11/10/18 History sguutqr-gxzoavavhxecu-camksdzz 250 1 tab PO PRN 05/03/24 History [...] 05/21/24 History mcg (2,000 unit) capsule omega 2-kyw-xkb-fish oil 1,200 mg 1 cap PO DAILY 02/2005/21/24 History (144 mg-216 mg) capsule (Fish Oil) omeprazole 20 mg capsule,delayed 20 mg PO QHS PRN gerd 02/21/24 Unknown History release sumatriptan succinate 6 mg/0.5 mL 6 mg subcut Q1-4H FL N migraine 02/21/24 Unknown History subcutaneous cartridge [...] spouse and children housing: house current occupation: [employer] Smoking Status: Never smoker alcohol intake: never substance use type: does not use do you feel safe at home: Yes Review of Systems (Anesthesia) ROS Narrative System reviewed and no additional complaints, except as documented. 07/24/24 1109 <Electronically signed by Cameron Roman MD > Date _ Cameron Roman MD Cosigner Signature: Date CC: ~ Signed [facility] Work Phone: Consult note Author Pradeep Kent [facility] Note Date/Time July 24, 2024 12:10 pm [facility] Medical Records Department [address] [place] [address] Anesthesia Postop Eval I 07/24/24 1209 MR#: [id number] Acct: [id number] Name: TINY MCCONNELL Rep #:[id number] : 1970 53 From: Pradeep GRAHAM PCP: KAVITA DobsonC Status:REG SDC Y Race: C Location: [place] [address] Anesthesia: Postop Eval I Current Vital Signs [...] 07/24/24 1210 <Electronically signed by Pradeep Kent OPERATING SYSTEMS SPECIALIST> Date _ Pradeep Kent OPERATING SYSTEMS SPECIALIST Cosigner Signature: Date CC: ~ Signed [facility] Work Phone: Evaluation noteNo assessment information available [facility] Work Phone: Reason for referral (narrative)No [facility] for [facility] Work Phone: Chief Complaint and Reason [...] RX HERE August 15, 2024 10:0 0am Chief Complaint Admit Date Pain June 14, 2024 2:36 pm RIGHT SHOULDER PAIN August 11, 2024 2:24p m BACK PAIN. RX HERE August 15, 2024 10:0 0am LUMBAR RAD August 19, 2024 7:57 am Chief Complaint Admit Date Pain June 14, 2024 2:36 pm RIGHT SHOULDER PAIN August 11, 2024 2:24p m BACK PAIN. RX HERE August 15, 2024 10:0 0am LUMBAR RAD August 19, 2024 7:57 am PAIN IN CERVICAL SPINE September 01, 2024 1 :35pm Family History No Family History Records Found Relationship Condition Age at Onset Recorded Date/T becky father Diabetes mellitus Unknown grandmother Malignant neoplasm of colon Unknown Advance Directives No Advanced Directives Records Found Advance Directive Response Recorded Date/ Time Living Will No May 09, 2024 3:07pm Power of Concession Worker No May 09 3:07pm Advance Directive Response Recorded Date/ Time Living Will No May 09, 2024 3:07pm Do you have a Healthcare Power of Concession Worker? No May 09, 2024 3:07pm Summary Purpose Additional Source Comments Care Teams (unrecognized sec tion and content) Team Status: Active Member Role Status Dates Dr. Jeramy Patiño MD Family Provider Active BARRY Dobson Primary Care Provider Active Team Status: Inactive Member Role Status Dates BARRY Dobson Primary Care Provide r, Attending Provider, Referring Provider Active Team Status: Active Member Role Status Dates BARRY Dobson Primary Care Provider Active Team Status: Inactive Member Role Status Dates BARRY Dobson Primary Care Provider Active Start: February 21, 2024 End: February 21, 2024 Dr. Abram Cameron MD Attending Provider Active Start: February 21, 2024 End: February 21, 2024 Dr. Abram Cameron MD Referring Provider Active Start: February 21, 2024 End: February 21, 2024 Team Status: Active Member Role Status Dates Emilee Mcclelland CELLULAR PLASTICS CUTTER-C Primary Care Provider Active Start: February 21, 2024 [facility] Attending Provider Active Start: Ny [email or web address] Team Status: Inactive Member Role Status Dates Emileerenan Mcclelland , CELLULAR PLASTICS CUTTER-C Primary Care Provider Active Start: May 10, 2024 End: May 10, 2024 Emilee Mcclelland CELLULAR PLASTICS CUTTER-C Referring Provider Active St art: May 10, 2024 End: May 10, 2024 Dr. Tico Hernandez DO Attending Provider Active Start: May 10, 2024 End: May 10, 2024 Team Status: Active Member Role Status Dates Emilee Mcclelland CELLULAR PLASTICS CUTTER-C Primary Care Provider Active Start: May 10, 2024 Emilee Mcclelland CELLULAR PLASTICS CUTTER-C Referring Provider Active St art: May 10, 2024 Dr. Tico Hernandez DO Attending Provider Active Start: May 10, 2024 Dr. Tico Hernandez DO Other Provider Active St art: May 10, 2024 Team Status: Inactive Member Role Status Dates Emilee Mcclelland CELLULAR PLASTICS CUTTER-C Primary Care Provider Active Start: May 22, 2024 End: May 22, 2024 Dr. Abram Cameron MD Attending Provider Active Start: May 22, 2024 End: May 22, 2024 Dr. Abram Cameron MD Referring Provider Active Start: May 22, 2024 End: May 22, 2024 Team Status: Inactive Member Role Status Dates Emilee Mcclelland CELLULAR PLASTICS CUTTER-C Primary Care Provider Active Start: June 14, 2024 End: June 14, 2024 Dr. Abram Cameron MD Attending Provider Active Start: June 14, 2024 End: June 14, 2024 Dr. Abram Cameron MD Referring Provider Active Start: June 14, 2024 End: June 14, 2024 Team Status: Active Member Role Status Dates Emilee Mcclelland CELLULAR PLASTICS CUTTER-C Primary Care Provider Active Start: July 21, 2024 Dr. Abram Cameron MD Attending Provider Active Start: July 21, 2024 Dr. Abram Cameron MD Referring Provider Active Start: July 21, 2024 Team Status: Inactive Member Role Status Dates Emilee Mcclelland CELLULAR PLASTICS CUTTER-C Primary Care Provider Active Start: July 24, 2024 End: July 24, 2024 Dr. Abram Cameron MD Attending Provider Active Start: July 24, 2024 End: July 24, 2024 Dr. Abram Cameron MD Referring Provider Active Start: July 24, 2024 End: July 24, 2024 Team Status: Inactive Member Role Status Dates Emilee Mcclelland , CELLULAR PLASTICS CUTTER-C Primary Care Provider Active Start: August 11, 2024 End: August 11, 2024 Dr. Abram Cameron MD Attending Provider Active Start: August 11, 2024 End: August 11, 2024 Dr. Abram Cameron MD Referring Provider Active Start: August 11, 2024 End: August 11, 2024 Team Status: Active Member Role Status Dates Emilee Mcclelland CELLULAR PLASTICS CUTTER-C Primary Care Provider Active Start: August 15, 2024 Dr. Abram Cameron MD Attending Provider Active Start: August 15, 2024 Dr. Abram Cameron MD Referring Provider Active Start: August 15, 2024 Team Status: Inactive Member Role Status Dates Emilee Mcclelland CELLULAR PLASTICS CUTTER-C Primary Care Provider Active Start: August 15, 2024 End: August 15, 2024 Dr. Abram Cameron MD Attending Provider Active Start: August 15, 2024 End: August 15, 2024 Dr. Abram Cameron MD Referring Provider Active Start: August 15, 2024 End: August 15, 2024 Team Status: Inactive Member Role Status Dates Emilee Mcclelland CELLULAR PLASTICS CUTTER-C Primary Care Provider Active Start: August 19, 2024 End: August 19, 2024 NP. Gladys Gonzalez Attending Provider Active Star t: August 19, 2024 End: August 19, 2024 NP. Gladys Gonzalez Referring Provider Active Star t: August 19, 2024 End: August 19, 2024 Team Status: Active Member Role/Relationship Status Dates Emilee Mcclelland , CELLULAR PLASTICS CUTTER-C Primary Care Provider Active Team Status: Inactive Member Role/Relationship Status Dates Emilee Mcclelland , CELLULAR PLASTICS CUTTER-C Primary Care Provider Active Start: May 10, 2024 End: May 10, 2024 Emilee Mcclelland CELLULAR PLASTICS CUTTER-C Referring Provider Active St art: May 10, 2024 End: May 10, 2024 Dr. Tico Hernandez DO Attending Provider Active Start: May 10, 2024 End: May 10, 2024 Team Status: Active Member Role/Relationship Status Dates Emilee Mcclelland , CELLULAR PLASTICS CUTTER-C Primary Care Provider Active Start: May 10, 2024 Emilee Mcclelland CELLULAR PLASTICS CUTTER-C Referring Provider Active St art: May 10, 2024 Dr. Tico Hernandez , Attending Provider Active Start: May 10, 2024 Dr. Tico Hernandez , Other Provider Active St art: May 10, 2024 Team Status: Inactive Member Role/Relationship Status Dates Emilee Mcclelland , CELLULAR PLASTICS CUTTER-C Primary Care Provider Active Start: May 22, 2024 End: May 22, 2024 Dr. Abram Cameron MD Attending Provider Active Start: May 22, 2024 End: May 22, 2024 Dr. Abram Cameron MD Referring Provider Active Start: May 22, 2024 End: May 22, 2024 Team Status: Inactive Member Role/Relationship Status Dates Emilee Mcclelland CELLULAR PLASTICS CUTTER-C Primary Care Provider Active Start: June 14, 2024 End: June 14, 2024 Dr. Abram Cameron MD Attending Provider Active Start: June 14, 2024 End: June 14, 2024 Dr. Abram Cameron MD Referring Provider Active Start: June 14, 2024 End: June 14, 2024 Team Status: Inactive Member Role/Relationship Status Dates Emilee Mcclelland , CELLULAR PLASTICS CUTTER-C Primary Care Provider Active Start: July 24, 2024 End: July 24, 2024 Dr. Abram Cameron MD Attending Provider Active Start: July 24, 2024 End: July 24, 2024 Dr. Abram Cameron MD Referring Provider Active Start: July 24, 2024 End: July 24, 2024 Team Status: Inactive Member Role/Relationship Status Dates Emilee Mcclelland , CELLULAR PLASTICS CUTTER-C Primary Care Provider Active Start: August 11, 2024 End: August 11, 2024 Dr. Abram Cameron MD Attending Provider Active Start: August 11, 2024 End: August 11, 2024 Dr. Abram Cameron MD Referring Provider Active Start: August 11, 2024 End: August 11, 2024 Team Status: Inactive Member Role/Relationship Status Dates Emilee Mcclelland , CELLULAR PLASTICS CUTTER-C Primary Care Provider Active Start: August 15, 2024 End: August 15, 2024 Dr. Abram Cameron MD Attending Provider Active Start: August 15, 2024 End: August 15, 2024 Dr. Abram Cameron MD Referring Provider Active Start: August 15, 2024 End: August 15, 2024 Team Status: Inactive Member Role/Relationship Status Dates BARRY Dobson Primary Care Provider Active Start: August 19, 2024 End: August 19, 2024 NP. Gladys Gonzalez Attending Provider Active Star t: August 19, 2024 End: August 19, 2024 CELLULAR PLASTICS CUTTERKp Gonzalez Referring Provider Active Star t: August 19, 2024 End: August 19, 2024 Team Status: Inactive Member Role/Relationship Status Dates BARRY Dobson Primary Care Provider Active Start: September 01, 2024 End: September 01, 2024 Dr. Abram Cameron MD Attending Provider Active Start: September 01, 2024 End: September 01, 2024 Dr. Abram Cameron MD Referring Provider Active Start: September 01, 2024 End: September 01, 2024 Goals (unrecognized section and content) Goals may be documented in a n alternate sectionGoals may be documented in an alternate section INFORMATION SOURCE (unrecogn ized section and content) DATE CREATED AUTHOR 10/21/2024 [facility] FOR RECORDS PERTAINING TO PATIENTS WHO ARE [...] BE BASED ON THE PRIMARY CLINICAL RECORDS. [facility] [employer] provides no warranty or guarantee of the accuracy or completeness of information in this document.
[2024-10-23 07:02] VITALS: BP 150/87; PULSE 67; RESP 16; TEMP 36.2; O2SAT 100; BMI 38.7
[2024-10-23] MEDS: Lactated Ringers 1,000 ML 15 ML IV (07:06)
[2024-10-23 08:00] VITALS: O2SAT 98
--- NOTE | 2024-10-23 08:18 | OP.PCM_ITS ---
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 BLOOD LOSS: Minimal. COMPLICATIONS: None. DESCRIPTION OF PROCEDURE: History and physical of today was reviewed. Risks and benefits of the procedure were explained. The patient understood and agreed to proceed. Informed consent was obtained. IV inserted per routine protocol. The patient was taken to the operating room and placed in the prone position with a pillow positioned underneath the chest. The neck area was prepped and draped in a sterile fashion using iodine x3. Under fluoroscopy guidance on an AP view, the C7-T1 interlaminar space was identified. The skin and subcutaneous tissue was anesthetized with approximately 3 mL of 1% lidocaine using a 25-gauge regular needle. Under direct visualization on fluoroscopy, on AP view, using a 20-gauge 2-1/2-inch Tuohy needle, the needle was advanced via the skin. The tip of the needle was maneuvered and directed towards the interlaminar space at C7- T1. Loss of resistance technique was carried to air. Loss of resistance technique was encountered. Once encountered, after negative aspiration for blood and CSF, a total of 1 mL of contrast was injected to confirm correct placement of the needle as well as cephalocaudal spread of the contrast. Confirmation was obtained on AP as well as lateral view. After repeated negative aspiration and confirmation, a total of 3 mL of preservative-free normal saline and 80 mg of Depo-Medrol was injected easily. The needle was then removed intact. The patient experienced no sign or symptoms of intrathecal or intravascular injection. The patient experienced no paresthesia. The procedure was completed without any apparent difficulty or any complications. The patient appeared to tolerate it well. ASSESSMENT AND PLAN: This is a 54-year-old female with cervical radiculopathy, cervical spinal stenosis, cervical degenerative disc disease, status post cervical epidural steroid injection interlaminar at C7-T1 under fluoroscopic guidance, patient will continue her current medications, patient will follow-up in approximately 2 weeks for reevaluation. Surgical Findings: 0 Complications Complications: No Admit VTE Documentation VTE Present on Admission: No VTE Mechan Device Prophylaxis: None VTE Pharm Prophylaxis ordered?: No
[2024-10-23 08:35] VITALS: BP 112/60; PULSE 64; RESP 16; TEMP 35.7; O2SAT 100
--- NOTE | 2024-10-23 08:50 | RAD_ITS ---
PROCEDURE: CERV SPINE 2 OR 3 VIEWS 10/23/2024 REASON FOR EXAM: BLOCK; CERVICAL EPIDURAL TECHNIQUE: CERV SPINE 2 OR 3 VIEWS COMPARISON: 09/01/2024. FINDINGS: Intraoperative fluoroscopy was performed. 5.9 seconds of fluoroscopic time. 2.2 mGy. 3 pictures. See procedure report for full details. RAD/Cerv Spine 2 or 3 Views IMPRESSION: As above. Disclaimer: Reading Location: [id number]
== END 2024-10-23 08:38 | disposition home or self-care (01) ==
LOC: SDC 06:40 → AC 06:41
PROVIDERS: PCP Nurse Practitioner Family; Referring Provider Anesthesiology Pain Medicine; Visit Provider Anesthesiology Pain Medicine
PROC: 3E0S3BZ Introduction of Anesthetic Agent into Epidural Space, Percutaneous Approach (ICD-10-PCS; CPT 62320; principal; 2024-10-23 08:05)
DX: M50.10 Cervical disc disorder with radiculopathy, unspecified cervical region (principal); M48.02 Spinal stenosis, cervical region; M47.812 Spondylosis without myelopathy or radiculopathy, cervical region; M43.05 Spondylolysis, thoracolumbar region; M51.17 Intervertebral disc disorders with radiculopathy, lumbosacral region; M47.814 Spondylosis without myelopathy or radiculopathy, thoracic region; M54.15 Radiculopathy, thoracolumbar region; M79.7 Fibromyalgia; I10 Essential (primary) hypertension; Z98.84 Bariatric surgery status; Z79.891 Long term (current) use of opiate analgesic; Z79.899 Other long term (current) drug therapy
CPT/HCPCS: 62321; 64490; 72040; J2405

== ENCOUNTER → 2024-10-24 | Outpatient (CLI) | payer OTHER, SELFPAY ==
--- NOTE | 2024-10-24 14:12 | MRI_ITS ---
PROCEDURE: SPINE CERVICAL (ROUTINE) 10/24/2024 REASON FOR EXAM: RADICULOPATHY, CERVICAL REGION TECHNIQUE: SPINE CERVICAL (ROUTINE) Multiplanar and multisequence images were obtained without IV contrast administration. COMPARISON: none FINDINGS: Straightened cervical curve denoting myospasm. No fracture/dislocation noted. The vertebral body heights are normal. Atlantodens interval is preserved. Odontoid process and atlantoaxial joint appear normal. Normal craniometric measures of the craniovertebral junction No obvious marrow degenerative changes. Modic 0. Reduced bright T2 signal of the intervertebral discs. C2-C3: There is no significant disc pathology. Normal morphology of the ligamentum flava. No arthropathy of the uncovertebral and zygapophyseal joints. No significant spinal canal stenosis noted. C3-C4: There is no significant disc pathology. Normal morphology of the ligamentum flava. No arthropathy of the uncovertebral and zygapophyseal joints. No significant spinal canal stenosis noted. C4-C5: There is no significant disc pathology. Normal morphology of the ligamentum flava. No arthropathy of the uncovertebral and zygapophyseal joints. No significant spinal canal stenosis noted. C5-C6: There is no significant disc pathology. Normal morphology of the ligamentum flava. No arthropathy of the uncovertebral and zygapophyseal joints. No significant spinal canal stenosis noted. C6-C7: There is no significant disc pathology. Normal morphology of the ligamentum flava. No arthropathy of the uncovertebral and zygapophyseal joints. No significant spinal canal stenosis noted. C7-T1: There is no significant disc pathology. Normal morphology of the ligamentum flava. No arthropathy of the uncovertebral and zygapophyseal joints. No significant spinal canal stenosis noted. Normal appearance of the examined cervical cord and cranio-cervical junction. C7 vertebral body small hemangioma. No marrow infiltrative lesions. No paraspinal soft tissue masses. Subcutaneous soft tissue edema of the posterior aspect of the lower neck. MRI/Spine Cervical (Routine) IMPRESSION: Straightened cervical curve denoting myospasm. No vertebral fracture or dislocation noted. No obvious spinal canal or neuroforaminal stenosis. Reading [facility]
== END | disposition home or self-care (01) ==
LOC: MRI 14:01
PROVIDERS: PCP Nurse Practitioner Family; Referring Provider Anesthesiology Pain Medicine; Visit Provider Anesthesiology Pain Medicine
DX: M54.12 Radiculopathy, cervical region (principal)
CPT/HCPCS: 72141

== ENCOUNTER 2024-12-12 13:00 | Outpatient (RCR) | payer OTHER, SELFPAY ==
--- NOTE | 2024-09-12 13:56 | HP.PTEVAL ---
Patient's Visit Information Visit Information Visit Information: TINY MCCONNELL is a 53 year old F referred to Physical Therapy by Dr. Abram Cameron MD with a diagnosis of C-spine Racdic and C-spine DDD. Date of Evaluation: 09/12/24 Physical Therapist: THANIA Chung Visit Plan Frequency: 2x /Week Duration: 2 Months Plan: 2X/ week for 8 weeks for lower trap strength, postural strength, R shoulder RC strength, C-spine stretches with HEP HEP: pink mid rows, notice and correct posture Subjective Subjective: She was here in July for her LB and got an MRI and was in PT for 4 weeks and even at that time her R shoulder was hurting then. She also has neck pain and gets injection C4-C7 B sides and gets one side of the neck twice a year. Pain is not up the neck and spread out more. Her shoulder started hurting more and has not done anything with her shoulder. Sometimes she would feel underside of B forearms. She has FM and weak strength with grasping and opening jars. He did an X-ray of the neck and then will do MRI after PT. She is R handed. She can move her R shoulder but she has pain if she reaches out away from her body. Pain R shoulder: Pain Intensity (Out of 10): 2 neck pain: Pain Intensity (Out of 10): 2 Objective Objective: R handed: Tight pec B Shoulder AROM R shoulder flex 142 and L 162 R shoulder ABD R 140 degrees and L 180 R shoulder IR T12 and L T6 R shoulder ER 71 and L 78 Shoulder strength: R shoulder flexion 7.2 and L 8.7 R shoulder ABD 7.4 and L 9 R shoulder ER 7 and L 8.6 R shoulder IR 9.4 and L 7.5 C-spine AROM: flexion 100% (increase pain down the C-spine and into rhomboids B), Ext 100%, SB B 75%, ROT B 75% Medical Information Officer strength R 70 and L 60# Posture: Rounded shoulders and protracted shoulders MT: tender levator and upper trap B Pt struggles with scapular retraction as she likes to use her upper trap Balance/Special Test Scores Oswestry Neck Score: 17 Goals Goal 1:: I HEP Goal Time Frame: 6-8 Weeks Goal 2:: Sit with upright posture throughout the day and treatment sessions to help with c-spine pain and impingement of the R shoulder Goal Time Frame: 6-8 Weeks Goal 3:: Decrease R shoulder pain with reaching out to the side by 50% Goal Time Frame: 6-8 Weeks Goal 4:: Increase R shoulder AROM (Shoulder AROM R shoulder flex 142 and L 162 R shoulder ABD R 140 degrees and L 180 R shoulder IR T12 and L T6 R shoulder ER 71 and L 78) Goal Time Frame: 6-8 Weeks Goal 5:: Increase R shoulder strength (at the time of the eval: Shoulder strength: R shoulder flexion 7.2 and L 8.7 R shoulder ABD 7.4 and L 9 R shoulder ER 7 and L 8.6 R shoulder IR 9.4 and L 7.5) Goal Time Frame: 6-8 Weeks Rehabilitation Potential Rehabilitation Potential: Good Anticipated Interventions Patient/Client Instruction: Educate patient on: Condition and Plan of Care For the Purpose of:: To decrease pain, To increase ROM, To improve nutrient delivery to tissue, To improve muscle performance and motor function, To improve ability to perform ADL's, To increase tolerance to activity/condition/position, To improve performance and independence with ADL's, To improve ability of physical actions for home/community/work/leisure, To improve health of tissue, To decrease soft tissue restriction and To increase flexibility/ROM Therapeutic Exercise to Include: Strength training, Postural training, Flexibilty training, Passive ROM, Active ROM and Scapular Strength/Stabilization For the Purpose of:: To decrease pain, To increase ROM, To improve nutrient delivery to tissue, To improve muscle performance and motor function, To improve ability to perform ADL's, To increase tolerance to activity/condition/position, To improve performance and independence with ADL's, To improve ability of physical actions for home/community/work/leisure, To improve health of tissue, To decrease soft tissue restriction and To increase flexibility/ROM Manual Therapy Techniques to Include: Mobilization, Passive ROM and Soft tissue mobilization For the Purpose of:: To decrease pain, To increase ROM, To improve nutrient delivery to tissue, To improve health of tissue, To decrease soft tissue restriction and To increase flexibility/ROM Cryotherapy (ice pack, ice massage): Yes Thermo therapy (hot pack): Yes Ultrasound (thermal/non thermal): Yes For the Purpose of:: To decrease pain, To increase ROM and To improve nutrient delivery to tissue Text: Thank you for the opportunity to evaluate your patient. For Medicare and Medicare HMO plans, please review the plan of care and approve it. It will need to be FAXED BACK to us at [phone] for Medicare purposes. For Medicare only, by signing this I certify the plan of care. Please let me know if there are questions or concerns regarding this plan of care. Physician Signature: Date:
--- NOTE | 2024-10-09 15:26 | HP.PTREVAL_ITS ---
Re-Evaluation Intro: Dr. Abram Cameron MD, It has been my pleasure to treat TINY MCCONNELL over the last 10 visits for C- spine Racdic and C-spine DDD. Please see the progress note below for an update on the physical therapy plan of care! Subjective Subjective: Not waking up with so much pain and not as severe. Pt saw the Dr last week and he has put into insurance to do MRI (neck) and c-spine epidural (Sept). (Dr Salamanca). Pt feels that the US she thinks is helping. Pt is more aware of her posture but it is not always great. She is getting 4 hours consecutively sleep with Ambien. Objective Objective/Function: (Shoulder AROM R shoulder flex 143 and L 162 R shoulder ABD R 167 degrees and L 180 R shoulder IR T12 and L T6 R shoulder ER 71 and L 78) UE MMT: R shoulder flexion 9.2 and L 8.7 R shoulder ABD 9 and L 9 R shoulder ER 11.2 and L 8.6 R shoulder IR 12.8 and L 7.5) Plan Plan Plan: 2X/ week for 8 weeks for lower trap strength, postural strength, R shoulder RC strength, C-spine stretches, US, MT to c-spine and R shoulder. HEP: pink mid rows, notice and correct posture Balance/Gait/Functional tests Balance/Special Test Scores Oswestry Neck Score: 20 Goals Goals Goal 1:: I HEP Goal Time Frame: 6-8 Weeks Goal Progress: Goal Met Goal 2:: Sit with upright posture throughout the day and treatment sessions to help with c-spine pain and impingement of the R shoulder Goal Time Frame: 6-8 Weeks Goal Progress: Progressing Goal 3:: Decrease R shoulder pain with reaching out to the side by 50% Goal Time Frame: 6-8 Weeks Goal 4:: Increase R shoulder AROM (Shoulder AROM R shoulder flex 142 and L 162 R shoulder ABD R 140 degrees and L 180 R shoulder IR T12 and L T6 R shoulder ER 71 and L 78) Goal Time Frame: 6-8 Weeks Goal Progress: Progressing Goal 5:: Increase R shoulder strength (at the time of the eval: Shoulder strength: R shoulder flexion 7.2 and L 8.7 R shoulder ABD 7.4 and L 9 R shoulder ER 7 and L 8.6 R shoulder IR 9.4 and L 7.5) Goal Time Frame: 6-8 Weeks Goal Progress: Progressing Anticipated Interventions Anticipated Interventions Patient/Client Instruction: Educate patient on: Condition and Plan of Care For the Purpose of:: To decrease pain, To increase ROM, To improve nutrient delivery to tissue, To improve muscle performance and motor function, To improve ability to perform ADL's, To increase tolerance to activity/condition/position, To improve performance and independence with ADL's, To improve ability of physical actions for home/community/work/leisure, To improve health of tissue, To decrease soft tissue restriction and To increase flexibility/ROM Therapeutic Exercise to Include: Strength training, Postural training, Flexibilty training, Passive ROM, Active ROM and Scapular Strength/Stabilization For the Purpose of:: To decrease pain, To increase ROM, To improve nutrient delivery to tissue, To improve muscle performance and motor function, To improve ability to perform ADL's, To increase tolerance to activity/condition/position, To improve performance and independence with ADL's, To improve ability of physical actions for home/community/work/leisure, To improve health of tissue, To decrease soft tissue restriction and To increase flexibility/ROM Manual Therapy Techniques to Include: Mobilization, Passive ROM and Soft tissue mobilization For the Purpose of:: To decrease pain, To increase ROM, To improve nutrient delivery to tissue, To improve health of tissue, To decrease soft tissue restriction and To increase flexibility/ROM Cryotherapy (ice pack, ice massage): Yes Thermo therapy (hot pack): Yes Ultrasound (thermal/non thermal): Yes For the Purpose of:: To decrease pain, To increase ROM and To improve nutrient delivery to tissue Re-Evaluation Ending Re-evaluation ending: Please do not hesitate to contact me at [phone] by phone or if you have questions or concerns regarding this new plan of care! Sincerely, Debbie Palmer, MPT
--- NOTE | 2024-11-07 12:37 | HP.PTREVAL_ITS ---
Re-Evaluation Intro: Dr. Abram Cameron MD, It has been my pleasure to treat TINY MCCONNELL over the last 17 visits for C- spine Racdic and C-spine DDD. Please see the progress note below for an update on the physical therapy plan of care! Subjective Subjective: Pt is doing pretty good. She did have an MRI and did not show anything structural. Showed straight neck and muscle spasms. She said the shoulder is much better but her neck is still painful. She had a cervical epidural 2 weeks ago. She thinks that it might have helped the shoulder. The epidural did not help the neck. She has pain lower c-spine and upper thoracic pain. She says that it always hurts and always an ache and sometimes it will be a burning. The further into the day and what she has done and it will make it worse. Pt reports that when she leaves therapy she feels some tiredness in the muscles and a little achy somedays. Shoulder 70% better and neck pain 30% Objective Objective/Function: We attempted to do self foam rolling of the thoracic spine but too much pressure with her fibro. Had her then lay prone and manual foam rolled out thoracic spine. Posture: rounded shoulders and increased thoracic kyphosis, B shoulder pr otraction. Tender points along the lower c-spine and upper to mid thoracic spine. Tolerated very light thoracic ext mobs without too much discomfort today. Shoulder strength: R shoulder flexion 9.5 and L 8.7 R shoulder ABD 7.6 and L 9 R shoulder ER 8.3and L 8.6 R shoulder IR 9.4 and L 7.5) Shoulder AROM R shoulder flex 149 and L 162 R shoulder ABD R 160 degrees and L 180 R shoulder IR T8 and L T6 R shoulder ER 71 and L 78) Plan Plan Plan: 2X/ week for 4 additional weeks for light thoracic extension mobs, thoracic and scapular strengthening, self extension of the thoracic over the chair, lat stretching, full shoulder flexion AROM, with full HEP to work on posture, scapular strength Balance/Gait/Functional tests Balance/Special Test Scores Oswestry Neck Score: 16 Goals Goals Goal 1:: I HEP Goal Time Frame: 6-8 Weeks Goal Progress: Goal Met Goal 2:: Sit with upright posture throughout the day and treatment sessions to help with c-spine pain and impingement of the R shoulder Goal Time Frame: 6-8 Weeks Goal Progress: Progressing Goal 3:: Decrease R shoulder pain with reaching out to the side by 50% Goal Time Frame: 6-8 Weeks Goal Progress: Goal Met Goal 4:: Increase R shoulder AROM (Shoulder AROM R shoulder flex 142 and L 162 R shoulder ABD R 140 degrees and L 180 R shoulder IR T12 and L T6 R shoulder ER 71 and L 78) Goal Time Frame: 6-8 Weeks Goal Progress: Progressing Goal 5:: Increase R shoulder strength (at the time of the eval: Shoulder str ength: R shoulder flexion 7.2 and L 8.7 R shoulder ABD 7.4 and L 9 R shoulder ER 7 and L 8.6 R shoulder IR 9.4 and L 7.5) Goal Time Frame: 6-8 Weeks Goal Progress: Progressing Anticipated Interventions Anticipated Interventions Patient/Client Instruction: Educate patient on: Condition and Plan of Care For the Purpose of:: To decrease pain, To increase ROM, To improve nutrient delivery to tissue, To improve muscle performance and motor function, To improve ability to perform ADL's, To increase tolerance to activity/condition/position, To improve performance and independence with ADL's, To improve ability of physical actions for home/community/work/leisure, To improve health of tissue, To decrease soft tissue restriction and To increase flexibility/ROM Therapeutic Exercise to Include: Strength training, Postural training, Flexibilty training, Passive ROM, Active ROM and Scapular Strength/Stabilization For the Purpose of:: To decrease pain, To increase ROM, To improve nutrient delivery to tissue, To improve muscle performance and motor function, To improve ability to perform ADL's, To increase tolerance to activity/condition/position, To improve performance and independence with ADL's, To improve ability of physical actions for home/community/work/leisure, To improve health of tissue, To decrease soft tissue restriction and To increase flexibility/ROM Manual Therapy Techniques to Include: Mobilization, Passive ROM and Soft tissue mobilization For the Purpose of:: To decrease pain, To increase ROM, To improve nutrient delivery to tissue, To improve health of tissue, To decrease soft tissue restriction and To increase flexibility/ROM Cryotherapy (ice pack, ice massage): Yes Thermo therapy (hot pack): Yes Ultrasound (thermal/non thermal): Yes For the Purpose of:: To decrease pain, To increase ROM and To improve nutrient delivery to tissue Re-Evaluation Ending Re-evaluation ending: Please do not hesitate to contact me at [phone] by phone or if you have questions or concerns regarding this new plan of care! Sincerely, Debbie Palmer, MPT
--- NOTE | 2024-12-12 14:19 | HP.PTDCSUM ---
Discharge Summary D/C summary: It has been my pleasure to treat TINY MCCONNELL referred by Dr. Abram Cameron MD, with the diagnosis of C-spine Racdic and C-spine DDD for a total of 26 visit(s). Discharge Date: 12/12/24 Please see the following information for a summary of their discharge status. Subjective Subjective: Pt reports that she has pain thoracic and along the c-spine paraspinals. She is always in pain. She follows up with the Dr next week (Dr read the MRI report and he said it said it was clear). When she looks over her R shoulder the pain goes down. The epidural helped and she was not feeling the shooting pain. She had some pain throwing the ball with her dog and the pain started back again. Shoulder pain in 90% better. Pain R shoulder: Pain Intensity (Out of 10): 1 neck pain: Pain Intensity (Out of 10): 2 Overall Improvement % Improvement: 90 Objective Objective/Function: R shoulder AROM: flex 151, ABD 155, ER 60 R shoulder MMT: flexion 9.1#, ABD 94# and ER 109# Goals Goal 1:: I HEP Goal Progress: Goal Met Goal 2:: Sit with upright posture throughout the day and treatment sessions to help with c-spine pain and impingement of the R shoulder Goal Progress: Goal Met Goal 3:: Decrease R shoulder pain with reaching out to the side by 50% Goal Progress: Goal Met Goal 4:: Increase R shoulder AROM (Shoulder AROM R shoulder flex 142 and L 162 R shoulder ABD R 140 degrees and L 180 R shoulder IR T12 and L T6 R shoulder ER 71 and L 78) Goal Progress: Progressing Goal 5:: Increase R shoulder strength (at the time of the eval: Shoulder strength: R shoulder flexion 7.2 and L 8.7 R shoulder ABD 7.4 and L 9 R shoulder ER 7 and L 8.6 R shoulder IR 9.4 and L 7.5) Goal Progress: Progressing Plan Plan: DC PT back to pain management. D/C Information Discharge Comments: DC PT to HEP d/c sentence: If there are questions or concerns regarding this patient's physical therapy, please feel free to call me at [phone]. Thank you for the referral of this patient. Sincerely, Debbie Palmer, MPT Balance/Gait/Functional tests Balance/Special Test Scores Oswestry Neck Score: 19 Improvement % Improvement: 90
== END 2024-12-12 19:00 | disposition home or self-care (01) ==
LOC: PT 13:00
PROVIDERS: PCP Nurse Practitioner Family; Referring Provider Anesthesiology Pain Medicine; Visit Provider Anesthesiology Pain Medicine
DX: M54.12 Radiculopathy, cervical region (principal); M50.30 Other cervical disc degeneration, unspecified cervical region
CPT/HCPCS: 97035; 97110; 97140; 97162; 97530